=== PATIENT | female | born 1950 | race Caucasian/White ===

== ENCOUNTER 2023-01-16 16:12 | Inpatient (IN) ==
[2023-01-16 16:54] LABS: Basophils # (auto) 0.03 K/uL (0-0.2); Basophils % (auto) 0.3 %; Eosinophils # (auto) 0.07 K/uL (0-0.50); Eosinophils % (auto) 0.7 %; Hematocrit (blood only) 34.1 % (37.0-47.0); Hemoglobin 11.1 g/dl (12.0-16.0); Immature Granulocytes # (auto) 0.04 K/uL (0.01-0.20); Immature Granulocytes % (auto) 0.4 %; Lymphocytes % (auto) 12.9 %; Mean Corpuscular Hemoglobin 28.5 pg (25.0-34.0); Mean Corpuscular Hgb Conc 32.6 g/dL (32.0-36.0); Mean Corpuscular Volume 87.7 fL (80.0-100.0); Mean Platelet Volume 10.6 fL (9.4-12.4); Monocytes # (auto) 0.88 K/uL (0.11-0.59); Monocytes % (auto) 8.7 %; Neutrophils # (auto) 7.75 K/uL (1.40-6.50); Platelet Count 247 K/uL (130-400); RDW Standard Deviation 44.4 fL (36.4-46.3); Red Blood Count 3.89 M/uL (4.20-5.40); White Blood Count 10.07 K/ul (4.8-10.8)
[2023-01-16 17:06] LABS: Albumin Globulin Ratio 1.1 (0.9-2); Albumin Level 3.8 gm/dl (3.4-5.0); BUN Creatinine Ratio 15.2 (10-20); Bilirubin,Total 0.5 mg/dl (0.2-1.0); Calcium 10.3 mg/dl (8.6-10.3); Creatinine Clr Calc Pharmacy 50.2 ml/min; Est GFR (African American) 60.6 ml/min; Est GFR (Non-African American) 52.3 ml/min; Globulin 3.6 gm/dl (2.5-4.0); Potassium 3.6 mmol/L (3.5-5.1); Total Protein 7.4 gm/dl (6.0-8.3)
[2023-01-16 17:19] LABS: Partial Thromboplastin Time 28.9 Seconds (21.0-31.0); Prothrombin Time 11.4 Seconds (9.0-12.0)
--- NOTE | 2023-01-16 17:19 | XRay Report ---
XR chest 1V not portable HISTORY: 72 years-old Female Chest pain, nonspecific COMPARISON: None TECHNIQUE: AP view of the chest FINDINGS: Cardiac silhouette is enlarged. Pulmonary vascular congestion with interstitial coarsening. Patchy bi basilar and right lung airspace opacities. 4.3 cm consolidative focus with central lucency of the rig ht suprahilar lung. No pneumothorax. Questioned trace pleural effusions. Bones appear grossly intact. IMPRESSION: 1. Cardiomegaly with pulmonary vascular congestion. 2. Right lung predominant airspace opacities suggestive of pneumonia with possible pulmonary abscess of the right upper lung. One-month follow-up chest radiographs recommended. ACT 112: Negative or not required by law. The above report was generated using voice recognition software. It may contain grammatical, syntax o r spelling errors. Electronically signed by: Pool Ashby M.D. 01/16/2023 5:18 PM
[2023-01-16 17:29] LABS: Influenza A virus by PCR Negative (Neg); Influenza B virus by PCR Negative (Neg); RSV by PCR Negative (Neg); SARS CoV2 RNA(COVID-19) Ceph NEGATIVE (Negative)
[2023-01-16] MEDS ORDERED: cefTRIAXone SODIUM 2,000 MG/70 ML BAG IV STA (18:07)
[2023-01-16] MEDS ORDERED: DOXYCYCLINE HYCLATE 100 MG in DEXTROSE 5% 100 ML IV STA (18:07)
[2023-01-16] MEDS ORDERED: ACETAMINOPHEN 500 MG TAB PO STA (18:41)
[2023-01-16] MEDS ORDERED: ASPIRIN CHEW 324 MG PO STA (18:41)
--- NOTE | 2023-01-16 19:43 | History & Physical Report ---
Date of Service January 16, 2023 Assessment & Plan (1) Pneumonia involving right lung: Plan: Unasyn + azithromycin CT chest to exclude lung abscess as discussed with pulmonology Incentive spirometer and flutter valve (2) Elevated troponin: Plan: Suspect demand-ischemia No need to repeat as x2 stable (3) Hypoxia: Plan: Aim O2 sats > 90% Does not appear to be in respiratory distress (4) T2DM (type 2 diabetes mellitus): Plan: HbA1C with AM labs Stop metformin and Trulicity Novolog: --Goal BSG Range: Low 110 mg/dL, High 140 mg/dL --Correction Factor: 45 mg/dL/unit No carb ratio --BSGs ACHS if eating, q6h if npo Add carb coverage and basal dosing if requiring frequent correction insulin (5) Hypertension: Plan: Hold olmesartan/HCTZ pending stable BP in setting of infection (6) Urge incontinence: Plan: Continue mirabegron and solifenacin (7) Hypothyroid: Plan: TSH with AM labs Continue levothyroxine Plan VTE Prophylaxis - Lovenox 40mg SQ QPM Diet - regular Disposition - admit to med/surg Admission and Anticipated Discharge Date Admission Date: December, History of Present Illness Chief Complaint: Shortness of breath Primary Care Provider: Ghassan Kahn DO Ketty Hernández is a 72 year old female who presents to the ER with shortness of breath. She reports symptoms started Koby night (3 days ago). Symptoms with shortness of breath, sore throat, generalized aches, frontal headache, dry cough. She denies any fever, chills, nasal congestion, sinus pain, post nasal drip or chest pain. Her shortness of breath has progressively got worse over the last 3 days and she was having to rest for 10 minutes today after short walks therefore decided to come to the ER. Allergies Allergy/AdvReac Type Severity Reaction Status Date / Time Beta-Blockers AdvReac Severe wipes me Verified 01/16/23 19:55 (Beta-Adrenergic Bloc out Home Medications Medication Instructions Recorded Confirmed Type allopurinol 100 mg tablet 100 mg PO QAM 01/16/23 01/16/23 History cyclobenzaprine 5 mg tablet 5 mg PO UD PRN Muscle Spasm 01/16/23 01/16/23 History dulaglutide 1.5 mg/0.5 mL 1.5 mg subcut WK 01/16/23 01/16/23 History subcutaneous pen injector (Trulicity) estradiol 1 mg tablet 1 mg PO QAM 01/16/23 01/16/23 History fluoride (sodium) 1.1 % dental 1 applic dental QAM 01/16/23 01/16/23 History cream (Sodium Fluoride 5000 Plus) hydroxyzine HCl 25 mg tablet 25 mg PO Q8 PRN Anxiety 01/16/23 01/16/23 History latanoprost 0.005 % eye drops 1 drp OPB QPM 01/16/23 01/16/23 History levothyroxine 100 mcg tablet 100 mcg PO DAILYBB 01/16/23 01/16/23 History metformin 500 mg tablet,extended 500 mg PO BIDM 01/16/23 01/16/23 History release 24 hr mirabegron 50 mg tablet,extended 50 mg PO QAM 01/16/23 01/16/23 History release 24 hr (Myrbetriq) olmesartan 40 1 tab PO QAM 01/16/23 01/16/23 History mg-hydrochlorothiazide 25 mg tablet pantoprazole 40 mg tablet,delayed 40 mg PO DAILYBB 01/16/23 01/16/23 History release pramipexole 0.25 mg tablet 0.25 mg PO HS 01/16/23 01/16/23 History pravastatin 40 mg tablet 40 mg PO HS 01/16/23 01/16/23 History sertraline 50 mg tablet 50 mg PO QAM 01/16/23 01/16/23 History solifenacin 5 mg tablet 5 mg PO QAM 01/16/23 01/16/23 History venlafaxine 75 mg capsule,extended 75 mg PO QAM 01/16/23 01/16/23 History release 24 hr Past Med/Surg History Medical History (Updated 01/17/23 @ 06:43 by Misha Bueno MD) Cellulitis Cellulitis Cystitis Depression Hypertension Hypothyroid T2DM (type 2 diabetes mellitus) Urge incontinence Social History Smoking Status: Never smoker Second Hand Exposure: No; Do You Dip or Chew Tobacco: No; Tobacco Cessation Education Requested by Patient: No Hx Alcohol Use: Yes Alcohol type: wine Hx Substance Use: No Preferred Language: German Communication Ability: Effective 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: No Beliefs That Will Affect Care: None Current Living Situation: Spouse Other Information That Helps Us Care for You: No Feels Safe at Home: Yes Safety Concerns: Feels Safe At This Time Assistive Devices: Denture - Upper, Glasses and Hearing Aid - Bilateral Review of Systems Review of Systems: All systems reviewed & are unremarkable except as noted in HPI & below Physical Exam Constitutional: WD/WN, vitals as above Eyes: PERRL, conjunctivae normal, anicteric sclerae ENMT: external ear and nose normal, oropharynx normal Neck: trachea midline, no thyromegaly Respiratory: normal respiratory effort; no respiratory distress Auscultation: + crackles (coarse right < left, anterior > posterior); breath sounds present, no diminished lung sounds, no rales, no rhonchi and no wheezes Cardiovascular: RRR, no murmur, no edema Gastrointestinal (Abdomen): normal bowel sounds, soft, nontender, no hepatosplenomegaly Musculoskeletal: no cyanosis or clubbing, extremities motor strength 5/5 Skin: no rashes, warm and dry Neurologic: moves all extremities and awake; not confused Psychiatric: A+Ox3, euthymic affect Results & Data Results & Data Vital Signs (Past 12 Hours) Vital Signs Temp Pulse Pulse Resp BP BP Pulse Ox 01/16/23 19:30 74 32 H 94 01/16/23 19:30 151/86 H 01/16/23 19:01 151/74 H 01/16/23 19:01 78 17 90 01/16/23 19:00 75 24 90 01/16/23 18:44 168/74 H 01/16/23 18:44 83 17 01/16/23 18:31 206/130 H 01/16/23 18:31 75 29 H 93 01/16/23 18:30 72 27 H 93 01/16/23 18:07 168/86 H 01/16/23 18:07 74 28 H 93 01/16/23 18:00 79 35 H 88 L 01/16/23 17:30 77 23 90 01/16/23 17:23 90 22 89 L 01/16/23 17:23 199/106 H 01/16/23 18:00 91 01/16/23 18:00 81 18 186/68 H 91 01/16/23 17:27 89 01/16/23 16:12 36.4 C L 73 20 193/90 H 95 O2 Del Method O2 Flow Rate 01/16/23 19:30 Nasal Cannula 2 01/16/23 19:30 01/16/23 19:01 01/16/23 19:01 Room Air 01/16/23 19:00 01/16/23 18:44 01/16/23 18:44 01/16/23 18:31 01/16/23 18:31 01/16/23 18:30 01/16/23 18:07 01/16/23 18:07 01/16/23 18:00 01/16/23 17:30 01/16/23 17:23 01/16/23 17:23 01/16/23 18:00 Room Air 01/16/23 18:00 Room Air 01/16/23 17:27 01/16/23 16:12 Room Air Laboratory Results Abnormal lab results 01/16/23 01/16/23 01/16/23 Range/Units 16:33 16:33 20:02 RBC 3.89 L (4.20-5.40) M/uL Hgb 11.1 L (12.0-16.0) g/dl Hct 34.1 L (37.0-47.0) % Neut # (Auto) 7.75 H (1.40-6.50) K/uL [place] # (Auto) 0.88 H (0.11-0.59) K/uL Glucose 105 H (70-99(Fasting)) mg/dl Troponin I High Sens 30.0 H 31.1 H (0-14) pg/ml B-Natriuretic Peptide (0-100) pg/ml 01/16/23 Range/Units 20:02 RBC (4.20-5.40) M/uL Hgb (12.0-16.0) g/dl Hct (37.0-47.0) % Neut # (Auto) (1.40-6.50) K/uL [place] # (Auto) (0.11-0.59) K/uL Glucose (70-99(Fasting)) mg/dl Troponin I High Sens (0-14) pg/ml B-Natriuretic Peptide 332 H (0-100) pg/ml Diagnostic Findings XR chest 1V not portable HISTORY: 72 years-old Female Chest pain, nonspecific COMPARISON: None TECHNIQUE: AP view of the chest FINDINGS: Cardiac silhouette is enlarged. Pulmonary vascular congestion with interstitial coarsening. Patchy bibasilar and right lung airspace opacities. 4.3 cm consolidative focus with central lucency of the right suprahilar lung. No pneumothorax. Questioned trace pleural effusions. Bones appear grossly intact. IMPRESSION: 1. Cardiomegaly with pulmonary vascular congestion. 2. Right lung predominant airspace opacities suggestive of pneumonia with possible pulmonary abscess of the right upper lung. One-month follow-up chest radiographs recommended. Medications Administered ER Medications Given: Ceftriaxone 2g IV Doxycycline 100mg IV Acetaminophen 324mg PO ECG Rate (beats per minute): 76 Rhythm: normal sinus Findings: + other (left ventricular hypertrophy), + RBBB (incomplete) and + left axis deviation Comparison ECG Date: from (November 24, 2013) Change: the following changes noted (incomplete RBBB is new) Code Status & VTE Plan Code Status Full VTE Prophylaxis Plan VTE Prophylaxis will be ordered: Yes PG Care Time/CCT Total # of Minutes Spent Total Time Spent with Patient: Total time spent is greater than 50% in coordination of care (as documented) at patient's floor/unit and/or counseling patient: Coding Level of Care Code 68598 INT INP/OBS CARE 2/55MIN Diagnoses Pneumonia involving right lung J18.9 Elevated troponin R77.8 Hypoxia R09.02 T2DM (type 2 diabetes mellitus) E11.9 Hypertension I10 Urge incontinence N39.41 Hypothyroid E03.9
[2023-01-16 20:37] LABS: Adenovirus PCR Not Detected (NotDetected); Bordetella parapertussis PCR Not Detected (NotDetected); Bordetella pertussis PCR Not Detected (NotDetected); Chlamydia pneumoniae PCR Not Detected (NotDetected); Coronavirus 229E PCR Not Detected (NotDetected); Coronavirus CoV-2 (COVID19)PCR Not Detected (NotDetected); Coronavirus HKU1 PCR Not Detected (NotDetected); Coronavirus NL63 PCR Not Detected (NotDetected); Coronavirus OC43PCR Not Detected (NotDetected); Human Metapneumovirus PCR Not Detected (NotDetected); Influenza A PCR Not Detected (NotDetected); Influenza B PCR Not Detected (NotDetected); Mycoplasma pneumoniae PCR Not Detected (NotDetected); Parainfluenza Virus 1 PCR Not Detected (NotDetected); Parainfluenza Virus 2 PCR Not Detected (NotDetected); Parainfluenza Virus 3 PCR Not Detected (NotDetected); Parainfluenza Virus 4 PCR Not Detected (NotDetected); Respiratory Syncytial VirusPCR Not Detected (NotDetected); Rhinovirus/Enterovirus PCR Not Detected (NotDetected)
[2023-01-16] MEDS ORDERED: OPTIRAY 320 100ml IV ONE (21:02)
--- NOTE | 2023-01-16 21:42 | CT Scan Report ---
Exam(s): CT CHEST With Contrast IV Amt: 81 ML OPTIRAY 320 EXAM: CT Chest With Intravenous Contrast CLINICAL HISTORY: Reason for exam: ?lung abscess. TECHNIQUE: Axial computed tomography images of the chest with intravenous contrast. CTDI is 28.1 mGy and DLP is 1650.84 mGy-cm. Automated exposure control was utilized for the study. A dose lowering technique was utilized adhering to the principles of ALARA. CONTRAST: Patient received 81 ML OPTIRAY 320 of IV contrast COMPARISON: No relevant prior studies available. FINDINGS: Lungs: Extensive patchy ground-glass airspace consolidations, preferentially involving the RIGHT lung. Mild subpleural sparing. Correlate for infectious or inflammatory etiology. Vaping-associated lung disease (or other hypersensitivity pneumonitis) cannot be excluded. Pleural space: Unremarkable. No pneumothorax. No significant effusion. Heart: Unremarkable. No cardiomegaly. No significant pericardial effusion. No significant coronary artery calcifications. Mediastinum: Small hiatal hernia. Bones/joints: Unremarkable. No acute fracture. No dislocation. Soft tissues: Unremarkable. Vasculature: Unremarkable. No thoracic aortic aneurysm. Lymph nodes: Unremarkable. No enlarged lymph nodes. IMPRESSION: Extensive patchy ground-glass airspace consolidations, preferentially involving the RIGHT lung. Mild subpleural sparing. Correlate for infectious or inflammatory etiology. Vaping-associated lung disease (or other hypersensitivity pneumonitis) cannot be excluded. Electronically signed by: Matthew Byrne MD 01/16/23 21:41 PM
--- NOTE | 2023-01-16 21:43 | Emergency Department Note ---
Impression & Plan Pneumonia involving right lung, SOB (shortness of breath), Elevated troponin ED Provider Note INFORMANT: Patient ED PROVIDER(S): Ho Hicks MD CHIEF COMPLAINT: Shortness of breath PLAN: Disposition: Admitted Condition: Good Outpatient prescription management: none Referral: None MEDICAL DECISION MAKING: Patient presented because of shortness of breath. Work-up initiated. Chest x- ray was concerning for right-sided pneumonia. COVID testing was performed and was negative. Bio fire testing was added to further elucidate a possible etiology. Patient CBC showed a mild anemia. Patient's troponin was mildly elevated. ECG did not reveal any acute ischemia. Patient was treated with IV Rocephin and doxycycline for community-acquired pneumonia. Patient had blood cultures done before antibiotics. Consultation was made with Dr. Misah Bueno of the [facility] service. Patient was evaluated in the ER for further management. After review of the information above and other included data, I feel the patient requires admission. Triage Nursing notes reviewed and agree them. Vital Signs: reviewed and remarkable for no significant abnormalities Prior /Outside records reviewed: none Differential diagnosis: Reactive airway disease, pneumonia, pneumothorax, COPD, CHF, infections, cardiac ischemia, pulmonary embolism, musculoskeletal, gastrointestinal, as well as other pathologies. Diagnostics, as interpreted by me: ECG: Twelve-lead ECG reveals normal sinus rhythm at 76 bpm. Left axis deviation. Incomplete right bundle branch block. Left ventricular hypertrophy. No PVCs. Cardiac Monitoring: Cardiac monitoring ordered by me: The patient was placed on continuous cardiac monitoring and observed. It revealed a normal sinus rhythm at 68 beats per minute without ectopy or evidence of dysrhythmia. Medical decision rules: none Imaging studies: Chest x-ray reveals right-sided infiltrate. HPI: The patient is a 72year old female who presents to the Emergency Room with complaints of shortness of breath. This started 4 days ago and is worsening. The patient also notes the following associated symptoms, intermittent chest pain, chills, feeling feverish, cough, headache. The patient has found no relieving factors. Current pain is rated as 8/10. Pt denies LOC, visual changes, neck pain, nausea, vomiting, abdominal pain, back pain, melena, hematoc hezia, urinary symptoms, numbness, weakness, lymphadenopathy, rash, or other complaints. PAST MEDICAL HISTORY: See Below, hypertension, diabetes PAST SURGICAL HISTORY: See Below, SOCIAL HISTORY: See Below, non-smoker HOME MEDICATIONS: See Below ALLERGIES: See Below VITALS: See Below PHYSICAL EXAMINATION: GENERAL: Awake, alert, nontoxic-appearing, in no distress HENT: Normocephalic, atraumatic. Oropharynx unremarkable. EYES: Normal conjunctiva. Sclera non-icteric. NECK: Inspection normal. Non-tender. Supple. No nuchal rigidity. FROM. No masses. RESPIRATORY: Diminished on the right otherwise clear to auscultation. No wheezes. No rales. Normal respiratory effort. CARDIAC: Normal rate. Normal rhythm. No murmurs. No rubs. Extremities warm and well perfused. Pulses equal. No JVD. GI: Soft, non-distended. No tenderness to palpation. No rebound or guarding. No masses. RECTAL: Deferred. MUSCULOSKELETAL: Atraumatic. Chest examination reveals no tenderness. The back is symmetrical on inspection without obvious abnormality. There is no CVA tenderness to palpation. No joint edema. LOWER EXTREMITIES: Calves are equal size bilaterally and non-tender. No edema. No discoloration. NEURO: Normal sensorium. No sensory or motor deficits noted. SKIN: No rash or jaundice noted. Past Med/Surg History Social History Smoking Status: Never smoker Feels Safe at Home: Yes Allergies Allergies Allergy/AdvReac Type Severity Reaction Status Date / Time Beta-Blockers AdvReac Severe wipes me Verified 01/16/23 19:55 (Beta-Adrenergic Bloc out Home Meds Home Medications Medication Instructions Recorded Confirmed allopurinol 100 mg tablet 100 mg PO QAM 01/16/23 01/16/23 cyclobenzaprine 5 mg tablet 5 mg PO UD PRN Muscle Spasm 01/16/23 01/16/23 dulaglutide 1.5 mg/0.5 mL 1.5 mg subcut WK 01/16/23 01/16/23 subcutaneous pen injector (Trulicity) estradiol 1 mg tablet 1 mg PO QAM 01/16/23 01/16/23 fluoride (sodium) 1.1 % dental 1 applic dental QAM 01/16/23 01/16/23 cream (Sodium Fluoride 5000 Plus) hydroxyzine HCl 25 mg tablet 25 mg PO Q8 PRN Anxiety 01/16/23 01/16/23 latanoprost 0.005 % eye drops 1 drp OPB QPM 01/16/23 01/16/23 levothyroxine 100 mcg tablet 100 mcg PO DAILYBB 01/16/23 01/16/23 metformin 500 mg tablet,extended 500 mg PO BIDM 01/16/23 01/16/23 release 24 hr mirabegron 50 mg tablet,extended 50 mg PO QAM 01/16/23 01/16/23 release 24 hr (Myrbetriq) olmesartan 40 1 tab PO QAM 01/16/23 01/16/23 mg-hydrochlorothiazide 25 mg tablet pantoprazole 40 mg tablet,delayed 40 mg PO DAILYBB 01/16/23 01/16/23 release pramipexole 0.25 mg tablet 0.25 mg PO HS 01/16/23 01/16/23 pravastatin 40 mg tablet 40 mg PO 01/16/23 01/16/23 sertraline 50 mg tablet 50 mg PO QA 01/16/23 01/16/23 solifenacin 5 mg tablet 5 mg PO QA 01/16/23 01/16/23 venlafaxine 100 mg tablet 100 mg PO QA 01/16/23 01/16/23 venlafaxine 75 mg capsule,extended 75 mg PO QAM 01/16/23 01/16/23 release 24 hr Results & Data (ED) Vital Signs Vital Signs - 24 hr 01/16/23 16:12 01/16/23 17:27 01/16/23 18:00 Temperature 36.4 C L Temperature Source Temporal Artery Scan Pulse Rate 73 89 Pulse Rate [Apical] 81 Pulse Rate from SpO2 Sensor Respiratory Rate 20 18 Respiratory Effort / Characteristics Non-Labored Spontaneous Non-Labored Spontaneous Respiratory Depth Normal Normal Respiratory Pattern Regular Blood Pressure 193/90 H Blood Pressure [Left Arm] 186/68 H Blood Pressure Mean 124 Blood Pressure Mean [Left Arm] 107 Blood Pressure Position [Left Arm] Sitting Pulse Oximetry 95 91 Oxygen Delivery Method Room Air Room Air Oxygen Flow Rate Sepsis Recent Fever Within 48 Hours No Sepsis New/Unexplained Change in Mental Status No Sepsis Action Taken by Nursing No Action Required 01/16/23 18:00 01/16/23 17:23 01/16/23 17:23 Temperature Temperature Source Pulse Rate 90 Pulse Rate [Apical] Pulse Rate from SpO2 Sensor 90 Respiratory Rate 22 Respiratory Effort / Characteristics Respiratory Depth Respiratory Pattern Blood Pressure 199/106 H Blood Pressure [Left Arm] Blood Pressure Mean 127 Blood Pressure Mean [Left Arm] Blood Pressure Position [Left Arm] Pulse Oximetry 91 89 L Oxygen Delivery Method Room Air Oxygen Flow Rate Sepsis Recent Fever Within 48 Hours Sepsis New/Unexplained Change in Mental Status Sepsis Action Taken by Nursing 01/16/23 17:30 01/16/23 18:00 01/16/23 18:07 Temperature Temperature Source Pulse Rate 77 79 74 Pulse Rate [Apical] Pulse Rate from SpO2 Sensor 77 77 75 Respiratory Rate 23 35 H 28 H Respiratory Effort / Characteristics Respiratory Depth Respiratory Pattern Blood Pressure Blood Pressure [Left Arm] Blood Pressure Mean Blood Pressure Mean [Left Arm] Blood Pressure Position [Left Arm] Pulse Oximetry 90 88 L 93 Oxygen Delivery Method Oxygen Flow Rate Sepsis Recent Fever Within 48 Hours Sepsis New/Unexplained Change in Mental Status Sepsis Action Taken by Nursing 01/16/23 18:07 01/16/23 18:30 01/16/23 18:31 Temperature Temperature Source Pulse Rate 72 75 Pulse Rate [Apical] Pulse Rate from SpO2 Sensor 72 76 Respiratory Rate 27 H 29 H Respiratory Effort / Characteristics Respiratory Depth Respiratory Pattern Blood Pressure 168/86 H Blood Pressure [Left Arm] Blood Pressure Mean 101 Blood Pressure Mean [Left Arm] Blood Pressure Position [Left Arm] Pulse Oximetry 93 93 Oxygen Delivery Method Oxygen Flow Rate Sepsis Recent Fever Within 48 Hours Sepsis New/Unexplained Change in Mental Status Sepsis Action Taken by Nursing 01/16/23 18:31 01/16/23 18:44 01/16/23 18:44 Temperature Temperature Source Pulse Rate 83 Pulse Rate [Apical] Pulse Rate from SpO2 Sensor Respiratory Rate 17 Respiratory Effort / Characteristics Respiratory Depth Respiratory Pattern Blood Pressure 206/130 H 168/74 H Blood Pressure [Left Arm] Blood Pressure Mean 145 107 Blood Pressure Mean [Left Arm] Blood Pressure Position [Left Arm] Pulse Oximetry Oxygen Delivery Method Oxygen Flow Rate Sepsis Recent Fever Within 48 Hours Sepsis New/Unexplained Change in Mental Status Sepsis Action Taken by Nursing 01/16/23 19:00 01/16/23 19:01 01/16/23 19:01 Temperature Temperature Source Pulse Rate 75 78 Pulse Rate [Apical] Pulse Rate from SpO2 Sensor 76 78 Respiratory Rate 24 17 Respiratory Effort / Characteristics Respiratory Depth Respiratory Pattern Blood Pressure 151/74 H Blood Pressure [Left Arm] Blood Pressure Mean 116 Blood Pressure Mean [Left Arm] Blood Pressure Position [Left Arm] Pulse Oximetry 90 90 Oxygen Delivery Method Room Air Oxygen Flow Rate Sepsis Recent Fever Within 48 Hours Sepsis New/Unexplained Change in Mental Status Sepsis Action Taken by Nursing 01/16/23 19:30 01/16/23 19:30 01/16/23 20:00 Temperature Temperature Source Pulse Rate 74 65 Pulse Rate [Apical] Pulse Rate from SpO2 Sensor 76 71 Respiratory Rate 32 H 26 H Respiratory Effort / Characteristics Respiratory Depth Respiratory Pattern Blood Pressure 151/86 H Blood Pressure [Left Arm] Blood Pressure Mean 115 Blood Pressure Mean [Left Arm] Blood Pressure Position [Left Arm] Pulse Oximetry 94 94 Oxygen Delivery Method Nasal Cannula Oxygen Flow Rate 2 Sepsis Recent Fever Within 48 Hours Sepsis New/Unexplained Change in Mental Status Sepsis Action Taken by Nursing 01/16/23 20:30 01/16/23 20:31 01/16/23 20:31 Temperature Temperature Source Pulse Rate 69 68 Pulse Rate [Apical] Pulse Rate from SpO2 Sensor 68 67 Respiratory Rate 31 H 20 Respiratory Effort / Characteristics Respiratory Depth Respiratory Pattern Blood Pressure 109/82 Blood Pressure [Left Arm] Blood Pressure Mean 99 Blood Pressure Mean [Left Arm] Blood Pressure Position [Left Arm] Pulse Oximetry 92 93 Oxygen Delivery Method Nasal Cannula Oxygen Flow Rate 2 Sepsis Recent Fever Within 48 Hours Sepsis New/Unexplained Change in Mental Status Sepsis Action Taken by Nursing Laboratory Data 01/16/23 16:33 01/16/23 16:33 Lab Results 01/16/23 01/16/23 01/16/23 Range/Units 16:33 16:33 16:33 WBC 10.07 (4.8-10.8) K/ul RBC 3.89 L (4.20-5.40) M/uL Hgb 11.1 L (12.0-16.0) g/dl Hct 34.1 L (37.0-47.0) % MCV 87.7 (80.0-100.0) fL MCH 28.5 (25.0-34.0) pg MCHC 32.6 (32.0-36.0) g/dL RDW Std Deviation 44.4 (36.4-46.3) fL RDW Coeff of Jason 14.0 (11.5-14.5) % Plt Count 247 (130-400) K/uL MPV 10.6 (9.4-12.4) fL Immature Gran % (Auto) 0.4 % Neut % (Auto) 77.0 % Lymph % (Auto) 12.9 % [place] % (Auto) 8.7 % Eos % (Auto) 0.7 % Baso % (Auto) 0.3 % Neut # (Auto) 7.75 H (1.40-6.50) K/uL Lymph # (Auto) 1.30 (1.2-3.4) K/uL [place] # (Auto) 0.88 H (0.11-0.59) K/uL Eos # (Auto) 0.07 (0-0.50) K/uL Baso # (Auto) 0.03 (0-0.2) K/uL Immature Gran # (Auto) 0.04 (0.01-0.20) K/uL PT 11.4 (9.0-12.0) Seconds INR 1.0 (0.9-1.1) APTT 28.9 (21.0-31.0) Seconds PTT Ratio 1.0 Sodium 138 (136-145) mmol/L Potassium 3.6 (3.5-5.1) mmol/L Chloride 105 (98-107) mmol/L Carbon Dioxide 26 (21-32) mmol/L Anion Gap 7 (3-11) BUN 16 (6-23) mg/dl Creatinine 1.05 (0.6-1.2) mg/dl Est Cr Clr Drug Dosing 50.2 ml/min Est GFR ( Amer) 60.6 ml/min Est GFR (Non-Af Amer) 52.3 ml/min BUN/Creatinine Ratio 15.2 (10-20) Glucose 105 H (70-99(Fasting)) mg/dl Calcium 10.3 (8.6-10.3) mg/dl Total Bilirubin 0.5 (0.2-1.0) mg/dl AST 24 (13-39) U/L ALT 34 (7-52) U/L Alkaline Phosphatase 91 (34-104) U/L Troponin I High Sens 30.0 H (0-14) pg/ml B-Natriuretic Peptide (0-100) pg/ml Total Protein 7.4 (6.0-8.3) gm/dl Albumin 3.8 (3.4-5.0) gm/dl Globulin 3.6 (2.5-4.0) gm/dl Albumin/Globulin Ratio 1.1 (0.9-2) Procalcitonin (0-0.5) ng/ml Adenovirus (PCR) (NotDetected) B. pertussis DNA (PCR) (NotDetected) B.parapertussis DNA PCR (NotDetected) C. pneumoniae DNA (PCR) (NotDetected) Coronavirus OC43 (PCR) (NotDetected) Coronavirus HKU1 (PCR) (NotDetected) Coronavirus 229E (PCR) (NotDetected) SARS-CoV-2 (PCR) (Negative) Coronavirus NL63 (PCR) (NotDetected) Human Metapneumovir PCR (NotDetected) Influenza Type A (PCR) (Neg) Influenza Type B (PCR) (Neg) M. pneumoniae (PCR) (NotDetected) Parainfluenza 1 (PCR) (NotDetected) Parainfluenza 2 (PCR) (NotDetected) Parainfluenza 3 (PCR) (NotDetected) Parainfluenza 4 (PCR) (NotDetected) RSV (RT-PCR) (Neg) RSV (PCR) (NotDetected) Entero/Rhino (PCR) (NotDetected) 01/16/23 01/16/23 01/16/23 Range/Units 16:34 16:34 19:22 WBC (4.8-10.8) K/ul RBC (4.20-5.40) M/uL Hgb (12.0-16.0) g/dl Hct (37.0-47.0) % MCV (80.0-100.0) fL MCH (25.0-34.0) pg MCHC (32.0-36.0) g/dL RDW Std Deviation (36.4-46.3) fL RDW Coeff of Jason (11.5-14.5) % Plt Count (130-400) K/uL MPV (9.4-12.4) fL Immature Gran % (Auto) % Neut % (Auto) % Lymph % (Auto) % [place] % (Auto) % Eos % (Auto) % Baso % (Auto) % Neut # (Auto) (1.40-6.50) K/uL Lymph # (Auto) (1.2-3.4) K/uL [place] # (Auto) (0.11-0.59) K/uL Eos # (Auto) (0-0.50) K/uL Baso # (Auto) (0-0.2) K/uL Immature Gran # (Auto) (0.01-0.20) K/uL PT (9.0-12.0) Seconds INR (0.9-1.1) APTT (21.0-31.0) Seconds PTT Ratio Sodium (136-145) mmol/L Potassium (3.5-5.1) mmol/L Chloride (98-107) mmol/L Carbon Dioxide (21-32) mmol/L Anion Gap (3-11) BUN (6-23) mg/dl Creatinine (0.6-1.2) mg/dl Est Cr Clr Drug Dosing ml/min Est GFR ( Amer) ml/min Est GFR (Non-Af Amer) ml/min BUN/Creatinine Ratio (10-20) Glucose (70-99(Fasting)) mg/dl Calcium (8.6-10.3) mg/dl Total Bilirubin (0.2-1.0) mg/dl AST (13-39) U/L ALT (7-52) U/L Alkaline Phosphatase (34-104) U/L Troponin I High Sens (0-14) pg/ml B-Natriuretic Peptide (0-100) pg/ml Total Protein (6.0-8.3) gm/dl Albumin (3.4-5.0) gm/dl Globulin (2.5-4.0) gm/dl Albumin/Globulin Ratio (0.9-2) Procalcitonin 0.08 (0-0.5) ng/ml Adenovirus (PCR) Not Detected (NotDetected) B. pertussis DNA (PCR) Not Detected (NotDetected) B.parapertussis DNA PCR Not Detected (NotDetected) C. pneumoniae DNA (PCR) Not Detected (NotDetected) Coronavirus OC43 (PCR) Not Detected (NotDetected) Coronavirus HKU1 (PCR) Not Detected (NotDetected) Coronavirus 229E (PCR) Not Detected (NotDetected) SARS-CoV-2 (PCR) NEGATIVE Not Detected (Negative) Coronavirus NL63 (PCR) Not Detected (NotDetected) Human Metapneumovir PCR Not Detected (NotDetected) Influenza Type A (PCR) Negative Not Detected (Neg) Influenza Type B (PCR) Negative Not Detected (Neg) M. pneumoniae (PCR) Not Detected (NotDetected) Parainfluenza 1 (PCR) Not Detected (NotDetected) Parainfluenza 2 (PCR) Not Detected (NotDetected) Parainfluenza 3 (PCR) Not Detected (NotDetected) Parainfluenza 4 (PCR) Not Detected (NotDetected) RSV (RT-PCR) Negative (Neg) RSV (PCR) Not Detected (NotDetected) Entero/Rhino (PCR) Not Detected (NotDetected) 01/16/23 01/16/23 Range/Units 20:02 20:02 WBC (4.8-10.8) K/ul RBC (4.20-5.40) M/uL Hgb (12.0-16.0) g/dl Hct (37.0-47.0) % MCV (80.0-100.0) fL MCH (25.0-34.0) pg MCHC (32.0-36.0) g/dL RDW Std Deviation (36.4-46.3) fL RDW Coeff of Jason (11.5-14.5) % Plt Count (130-400) K/uL MPV (9.4-12.4) fL Immature Gran % (Auto) % Neut % (Auto) % Lymph % (Auto) % [place] % (Auto) % Eos % (Auto) % Baso % (Auto) % Neut # (Auto) (1.40-6.50) K/uL Lymph # (Auto) (1.2-3.4) K/uL [place] # (Auto) (0.11-0.59) K/uL Eos # (Auto) (0-0.50) K/uL Baso # (Auto) (0-0.2) K/uL Immature Gran # (Auto) (0.01-0.20) K/uL PT (9.0-12.0) Seconds INR (0.9-1.1) APTT (21.0-31.0) Seconds PTT Ratio Sodium (136-145) mmol/L Potassium (3.5-5.1) mmol/L Chloride (98-107) mmol/L Carbon Dioxide (21-32) mmol/L Anion Gap (3-11) BUN (6-23) mg/dl Creatinine (0.6-1.2) mg/dl Est Cr Clr Drug Dosing ml/min Est GFR ( Amer) ml/min Est GFR (Non-Af Amer) ml/min BUN/Creatinine Ratio (10-20) Glucose (70-99(Fasting)) mg/dl Calcium (8.6-10.3) mg/dl Total Bilirubin (0.2-1.0) mg/dl AST (13-39) U/L ALT (7-52) U/L Alkaline Phosphatase (34-104) U/L Troponin I High Sens 31.1 H (0-14) pg/ml B-Natriuretic Peptide 332 H (0-100) pg/ml Total Protein (6.0-8.3) gm/dl Albumin (3.4-5.0) gm/dl Globulin (2.5-4.0) gm/dl Albumin/Globulin Ratio (0.9-2) Procalcitonin (0-0.5) ng/ml Adenovirus (PCR) (NotDetected) B. pertussis DNA (PCR) (NotDetected) B.parapertussis DNA PCR (NotDetected) C. pneumoniae DNA (PCR) (NotDetected) Coronavirus OC43 (PCR) (NotDetected) Coronavirus HKU1 (PCR) (NotDetected) Coronavirus 229E (PCR) (NotDetected) SARS-CoV-2 (PCR) (Negative) Coronavirus NL63 (PCR) (NotDetected) Human Metapneumovir PCR (NotDetected) Influenza Type A (PCR) (Neg) Influenza Type B (PCR) (Neg) M. pneumoniae (PCR) (NotDetected) Parainfluenza 1 (PCR) (NotDetected) Parainfluenza 2 (PCR) (NotDetected) Parainfluenza 3 (PCR) (NotDetected) Parainfluenza 4 (PCR) (NotDetected) RSV (RT-PCR) (Neg) RSV (PCR) (NotDetected) Entero/Rhino (PCR) (NotDetected) Administered Medications Discontinued Medications Acetaminophen (Acetaminophen 500 Mg Tab) 1,000 mg PO NOW STA Stop: 01/16/23 18:42 Last Admin: 01/16/23 19:04 Dose: 1,000 mg Documented By: TAMMY Aspirin (Aspirin Chew 324 Mg) 324 mg PO NOW STA Stop: 01/16/23 18:42 Last Admin: 01/16/23 19:04 Dose: 324 mg Documented By: TAMMY Ceftriaxone Sodium (Rocephin) 2,000 mg in 70 mls @ 140 mls/hr IV NOW STA Stop: 01/16/23 18:36 Last Infusion: 01/16/23 19:32 Dose: 0 mls/hr Documented By: Admin: 01/16/23 18:46 Dose: 140 mls/hr Documented By: MINO Doxycycline Hyclate 100 mg/ (Dextrose) 110 mls @ 50 mls/hr IV NOW STA Stop: 01/16/23 20:18 Last Admin: 01/16/23 19:32 Dose: 50 mls/hr Documented By: ASHTYN Ioversol (Optiray 320 100ml) 81 ml IV ONCE ONE Stop: 01/16/23 21:03 Last Admin: 01/16/23 21:03 Dose: 81 ml Documented By: SHARAN Imaging Data Radiologist's Impression: Chest X-Ray 01/16/23 16:28 XR chest 1V not portable HISTORY: 72 years-old Female Chest pain, nonspecific COMPARISON: None TECHNIQUE: AP view of the chest FINDINGS: Cardiac silhouette is enlarged. Pulmonary vascular congestion with interstitial coarsening. Patchy bibasilar and right lung airspace opacities. 4.3 cm consolidative focus with central lucency of the right suprahilar lung. No pneumothorax. Questioned trace pleural effusions. Bones appear grossly intact. IMPRESSION: 1. Cardiomegaly with pulmonary vascular congestion. 2. Right lung predominant airspace opacities suggestive of pneumonia with possible pulmonary abscess of the right upper lung. One-month follow-up chest radiographs recommended. ACT 112: Negative or not required by law. The above report was generated using voice recognition software. It may contain grammatical, syntax or spelling errors. Electronically signed by: Pool Ashby M.D. 01/16/2023 5:18 PM Discharge Plan Visit Data Chief Complaint: Shortness of Breath/Dyspnea Stated Complaint: SOB,CHILLS,DOESNT FEEL WELL ED Provider: Ho Hicks Discharge Problem: Pneumonia involving right lung, SOB (shortness of breath), Elevated troponin Patient Disposition: Admitted As Inpatient Discharge Instructions Interventions: ED Discharge Assessment Last Done: 01/16/23 21:28 Forms Stand Alone Forms: My [facility] Prescriptions Prescriptions: No Action venlafaxine 75 mg capsule,extended release 24hr 75 mg PO QAM allopurinol 100 mg tablet 100 mg PO QAM metformin 500 mg tablet extended release 24 hr 500 mg PO BIDM sertraline 50 mg tablet 50 mg PO QAM Myrbetriq 50 mg tablet extended release 24 hr 50 mg PO QAM estradiol 1 mg tablet 1 mg PO QAM pantoprazole 40 mg tablet,delayed release (DR/EC) 40 mg PO DAILYBB cyclobenzaprine 5 mg tablet 5 mg PO UD PRN (Reason: Muscle Spasm) olmesartan-hydrochlorothiazide 40-25 mg tablet 1 tab PO QAM Trulicity 1.5 mg/0.5 mL pen injector 1.5 mg SUBCUT WK Rx Instructions: hydroxyzine HCl 25 mg tablet 25 mg PO Q8 PRN (Reason: Anxiety) solifenacin 5 mg tablet 5 mg PO QAM latanoprost 0.005 % drops 1 drp OPB QPM pravastatin 40 mg tablet 40 mg PO HS pramipexole 0.25 mg tablet 0.25 mg PO HS fluoride (sodium) [Sodium Fluoride 5000 Plus] 1.1 % cream 1 applic dental QAM levothyroxine 100 mcg tablet 100 mcg PO DAILYBB venlafaxine 100 mg Tablet 100 mg PO QAM Referrals Referrals: Ghassan Kahn DO [Primary Care Provider] -
[2023-01-16] MEDS ORDERED: CYCLOBENZAPRINE HCL 5 MG TAB PO PRN (21:59)
[2023-01-16] MEDS ORDERED: CARBOHYDRATES FOR HYPOGLYCEMIA PO PRN (22:54)
[2023-01-16] MEDS ORDERED: GLUCOSE 40% GEL 15 GM TUBE PO PRN (22:54)
[2023-01-16] MEDS ORDERED: GLUCAGON FOR INJ 1 MG VIAL SQ PRN (22:54)
[2023-01-16] MEDS ORDERED: GLUCOSE 10 TAB/TUBE PO PRN (22:54)
[2023-01-16] MEDS ORDERED: DEXTROSE 50% 50 ML SYRINGE IV PRN (22:54)
[2023-01-16] MEDS: AZITHROMYCIN 250 MG TAB PO SCH (23:05)
[2023-01-16] MEDS: LATANOPROST 0.005% OP SOLN 2.5 ML BTL OPB SCH (23:06)
[2023-01-16] MEDS: PRAVASTATIN SOD 40 MG TAB PO SCH (23:07)
[2023-01-16] MEDS: PRAMIPEXOLE DIHYDROCHLO 0.25 MG TAB PO SCH (23:07)
[2023-01-16] MEDS: ENOXAPARIN INJ 40 MG/0.4 ML SYR SQ SCH (23:08)
[2023-01-16] MEDS: AMPICILLIN/SULBACTAM SOD 3,000 MG in 0.9 % SODIUM CHLORIDE 100 ML IV SCH (23:14)
[2023-01-17] MEDS: ACETAMINOPHEN 325 MG TAB PO PRN ×3 (02:37→21:12)
[2023-01-17] MEDS: AMPICILLIN/SULBACTAM SOD 3,000 MG in 0.9 % SODIUM CHLORIDE 100 ML IV SCH ×2 (05:48→12:00)
[2023-01-17] MEDS: LEVOTHYROXINE SODIUM 100 MCG TABLET PO SCH (05:49)
[2023-01-17] MEDS: PANTOprazole 40 MG TAB PO SCH (05:49)
--- NOTE | 2023-01-17 07:09 | Pulmonary Consultation ---
Date of Consultation January 17, 2023 Assessment & Plan (1) Acute respiratory failure with hypoxia: (2) Multifocal pneumonia: (3) Obesity: Plan CT chest 01/16/2023 personally reviewed: Groundglass opacities appreciated bilateral upper lobes as well as the right lower lobe Minimal groundglass opacity in the left lower lobe as well Minimal mediastinal lymphadenopathy -- Acute hypoxic respiratory failure Secondary to multilobar pneumonia BNP 332, procalcitonin 0.08 Respiratory bio fire negative for everything including RSV, entero-/renal, mycoplasma and COVID-[address] chest no signs of abscess Differential includes but not limited to infectious process, noninfectious process like NSIP, diffuse alveolar hemorrhage, pulmonary alveolar proteinosis --Probable LISBETH BiPAP nightly and as needed shortness of breath Recommend outpatient polysomnography Plan: Continue with atypical antibiotic coverage for total of 5-7 days Okay to discontinue ampicillin-sulbactam Autoimmune work-up to be ordered for tomorrow Urine Legionella ordered Follow-up 2D echo For bronchoscopy tomorrow, n.p.o. postmidnight Hold Lovenox Risk and benefit of the procedure explained to the patient in depth. She u nderstand is agreeable to the procedure O2 supplementation to keep oxygen saturation between 90-92% Please note the above document was generated using voice recognition software. It may contain grammatical, syntax or spelling errors.Any formal questions or concerns about the content, text or information contained within the body of this dictation should be directly addressed to the provider for clarification. History of Present Illness Attending Physician: Misha Bueno MD History of Present Illness 72-year-old female present to the hospital complaints of shortness of breath Past medical history: Hypothyroidism, anxiety/depression, type 2 diabetes Pulmonary consulted for abnormal chest x-ray At the time of examination patient was saturating 99% on 3 L nasal cannula, I went down to 1 L Patient has not been feeling well for approximately 3-4 days Is started with shortness of breath which woke her up at night. Has been feeling of nasal congestion and coughing clear phlegm. Denies any hemoptysis Did complain of multiple bouts of loose stools. No hematochezia No dysuria, no hematuria. Subjective fever and chills. Unable to measure the temperature. No nausea vomiting No personal or family history of autoimmune disease like lupus, sarcoid, Sjogren's, rheumatoid Denies any difficulty swallowing, no dry eyes, no dry mouth No morning joint stiffness Social history: Lifetime non-smoker, no alcohol. Denies any illicit drug use Has 3 dogs at home. No birds or poultry nearby No personal or family history of asthma No history of lung cancer in the family Allergies Allergy/AdvReac Type Severity Reaction Status Date / Time Beta-Blockers AdvReac Severe wipes me Verified 01/16/23 19:55 (Beta-Adrenergic Bloc out Home Medications Medication Instructions Recorded Confirmed Type allopurinol 100 mg tablet 100 mg PO QAM 01/16/23 01/16/23 History cyclobenzaprine 5 mg tablet 5 mg PO UD PRN Muscle Spasm 01/16/23 01/16/23 History dulaglutide 1.5 mg/0.5 mL 1.5 mg subcut WK 01/16/23 01/16/23 History subcutaneous pen injector (Trulicity) estradiol 1 mg tablet 1 mg PO QA 01/16/23 01/16/23 History fluoride (sodium) 1.1 % dental 1 applic dental [facility] 01/16/23 01/16/23 History cream (Sodium Fluoride 5000 Plus) hydroxyzine HCl 25 mg tablet 25 mg PO Q8 PRN Anxiety 01/16/23 01/16/23 History latanoprost 0.005 % eye drops 1 drp OPB QPM 01/16/23 01/16/23 History levothyroxine 100 mcg tablet 100 mcg PO DAILYBB 01/16/23 01/16/23 History metformin 500 mg tablet,extended 500 mg PO BIDM 01/16/23 01/16/23 History release 24 hr mirabegron 50 mg tablet,extended 50 mg PO QAM 01/16/23 01/16/23 History release 24 hr (Myrbetriq) olmesartan 40 1 tab PO QAM 01/16/23 01/16/23 History mg-hydrochlorothiazide 25 mg tablet pantoprazole 40 mg tablet,delayed 40 mg PO DAILYBB 01/16/23 01/16/23 History release pramipexole 0.25 mg tablet 0.25 mg PO HS 01/16/23 01/16/23 History pravastatin 40 mg tablet 40 mg PO HS 01/16/23 01/16/23 History sertraline 50 mg tablet 50 mg PO QAM 01/16/23 01/16/23 History solifenacin 5 mg tablet 5 mg PO QAM 01/16/23 01/16/23 History venlafaxine 75 mg capsule,extended 75 mg PO QAM 01/16/23 01/16/23 History release 24 hr Patient History Medical History (Updated 01/17/23 @ 12:06 by Oseas Pierson MD, [facility]) Cellulitis Cellulitis Cystitis Depression Hypertension Hypothyroid T2DM (type 2 diabetes mellitus) Urge incontinence Social History Smoking Status: Never smoker Second Hand Exposure: No; Do You Dip or Chew Tobacco: No; Tobacco Cessation Education Requested by Patient: No Hx Alcohol Use: Yes Alcohol type: wine Hx Substance Use: No Preferred Language: Sinhala Communication Ability: Effective Assistant Professor Of Spanish Required: No Beliefs That Will Affect Care: None Current Living Situation: Spouse Other Information That Helps Us Care for You: No Feels Safe at Home: Yes Safety Concerns: Feels Safe At This Time Assistive Devices: Denture - Upper, Glasses and Hearing Aid - Bilateral Review of Systems Review of Systems: All systems reviewed & are unremarkable except as noted in HPI & below Physical Exam Physical Exam: Constitutional: No acute distress HEENT: EOMI, PERRLA Respiratory system: Decreased air entry bilaterally, no wheeze, no rhonchi, positive crackles bilaterally CVS: S1-S2 positive, no murmurs or gallops Abdomen: Soft, nontender, nondistended, positive bowel sounds x4, obese Extremities: +2 pulses bilaterally radialis/ dorsalis pedis, no cyanosis, no edema Neuro: Awake alert oriented x3 Psych: Normal mood and affect G/U: No Oliveros Skin: no rashes, warm and dry Lymphatic: no cervical or axillary lymphadenopathy Results & Data Results & Data Vital Signs (Past 12 Hours) Vital Signs Temp Pulse Pulse Resp BP BP Pulse Ox 01/16/23 21:45 01/16/23 21:45 01/16/23 21:45 36.7 C 64 18 161/73 H 94 01/16/23 20:31 68 20 93 01/16/23 20:31 109/82 01/16/23 20:30 69 31 H 92 01/16/23 20:00 65 26 H 94 01/16/23 19:30 74 32 H 94 01/16/23 19:30 151/86 H O2 Del Method O2 Flow Rate 01/16/23 21:45 Nasal Cannula 2 01/16/23 21:45 Nasal Cannula 2 01/16/23 21:45 Nasal Cannula 2 01/16/23 20:31 Nasal Cannula 2 01/16/23 20:31 01/16/23 20:30 01/16/23 20:00 01/16/23 19:30 Nasal Cannula 2 01/16/23 19:30 Laboratory Results 01/16/23 16:33 01/16/23 16:33 PG Care Time/CCT Total # of Minutes Spent Total Time Spent with Patient: Total time spent is greater than 50% in coordination of care (as documented) at patient's floor/unit and/or counseling patient: [place] [address] INT INP/OBS CARE 3/75MIN Patient Type New Diagnoses Acute respiratory failure with hypoxia J96.01 Multifocal pneumonia J18.9 Obesity E66.9
[2023-01-17 08:09] LABS: Basophils # (auto) 0.03 K/uL (0-0.2); Basophils % (auto) 0.4 %; Eosinophils # (auto) 0.17 K/uL (0-0.50); Eosinophils % (auto) 2.5 %; Hematocrit (blood only) 31.4 % (37.0-47.0); Hemoglobin 10.2 g/dl (12.0-16.0); Immature Granulocytes # (auto) 0.11 K/uL (0.01-0.20); Immature Granulocytes % (auto) 1.6 %; Lymphocytes # (auto) 0.81 K/uL (1.2-3.4); Lymphocytes % (auto) 11.7 %; Mean Corpuscular Hemoglobin 28.3 pg (25.0-34.0); Mean Corpuscular Hgb Conc 32.5 g/dL (32.0-36.0); Mean Corpuscular Volume 87.2 fL (80.0-100.0); Mean Platelet Volume 10.8 fL (9.4-12.4); Monocytes # (auto) 0.58 K/uL (0.11-0.59); Monocytes % (auto) 8.4 %; Neutrophils # (auto) 5.22 K/uL (1.40-6.50); Neutrophils % (auto) 75.4 %; Platelet Count 209 K/uL (130-400); White Blood Count 6.92 K/ul (4.8-10.8)
[2023-01-17 08:32] LABS: BUN Creatinine Ratio 15.4 (10-20); Calcium 9.7 mg/dl (8.6-10.3); Creatinine Clr Calc Pharmacy 52.4 ml/min; Est GFR (African American) 61.3 ml/min; Est GFR (Non-African American) 52.9 ml/min; Potassium 4.1 mmol/L (3.5-5.1)
[2023-01-17] MEDS: INSULIN ASPART PER UNIT CHARGE SC SCH ×4 (08:36→21:12)
--- NOTE | 2023-01-17 08:48 | Electrocardiogram Report ---
Test Reason : Blood Pressure : / mmHG Vent. Rate : 076 BPM Atrial Rate : 076 BPM P-R Int : 148 ms QRS Dur : 112 ms QT Int : 388 ms P-R-T Axes : 054 -39 075 degrees QTc Int : 436 ms Normal sinus rhythm Left axis deviation Incomplete right bundle branch block Left ventricular hypertrophy with repolarization abnormality Abnormal ECG When compared with ECG of 24-NOV-2013 05:53, Incomplete right bundle branch block is now Present Left ventricular hypertrophy with repolarization abnormality now present Confirmed by Laron Childers ([id number]) on 01/17/2023 8:47:47 AM Referred By: REFERRED SELF Confirmed By:Laron Childers
[2023-01-17] MEDS ORDERED: MIRABEGRON ER 25 MG TAB PO SCH (09:00)
[2023-01-17] MEDS ORDERED: VIBEGRON 75 MG TAB PO SCH (09:00)
[2023-01-17] MEDS ORDERED: VENLAFAXINE HCL 50 MG TAB PO SCH (09:00)
[2023-01-17] MEDS: allopurinoL 100 MG TAB PO SCH (09:06)
[2023-01-17] MEDS: SERTRALINE HCL 50 MG TABLET PO SCH (09:06)
[2023-01-17] MEDS: VENLAFAXINE HCL XR 75 MG CAPXR PO SCH (09:06)
[2023-01-17] MEDS: OXYBUTYNIN CHLORIDE XL 5 MG TABCR PO SCH (09:06)
[2023-01-17] MEDS: VIBEGRON 75 MG TAB PO SCH (09:06)
[2023-01-17 09:26] LABS: Estimated Average Glucose 126 mg/dl
--- NOTE | 2023-01-17 13:37 | XCELERA ---
[id number]
[2023-01-17] MEDS ORDERED: ALBUTEROL HFA 8 GM INHALER INH ONE (14:10)
[2023-01-17] MEDS ORDERED: PROMETHAZINE HCL 25 MG TAB PO ONE (14:10)
[2023-01-17] MEDS ORDERED: IBUPROFEN 600 MG TAB PO STA (14:25)
[2023-01-17] MEDS ORDERED: ALBUT/IPRATROP 3MG/0.5MG NEB 3 ML VIAL NEB PRN (15:39)
[2023-01-17] MEDS: FUROSEMIDE 40 MG/4 ML VIAL IV SCH (17:34)
[2023-01-17] MEDS: LATANOPROST 0.005% OP SOLN 2.5 ML BTL OPB SCH (21:08)
[2023-01-17] MEDS: PRAMIPEXOLE DIHYDROCHLO 0.25 MG TAB PO SCH (21:09)
[2023-01-17] MEDS: AZITHROMYCIN 250 MG TAB PO SCH (21:09)
[2023-01-17] MEDS: PRAVASTATIN SOD 40 MG TAB PO SCH (21:09)
[2023-01-17] MEDS: IBUPROFEN 600 MG TAB PO PRN (22:23)
[2023-01-18] MEDS: LEVOTHYROXINE SODIUM 100 MCG TABLET PO SCH (06:20)
[2023-01-18] MEDS: PANTOprazole 40 MG TAB PO SCH (06:20)
--- NOTE | 2023-01-18 07:09 | Pulmonology Progress Note ---
Date of Service January 18, 2023 Assessment & Plan (1) Acute respiratory failure with hypoxia: (2) Multifocal pneumonia: (3) Obesity: (4) Pulmonary hypertension: Plan CT chest 01/16/2023 personally reviewed: Groundglass opacities appreciated bilateral upper lobes as well as the right lower lobe Minimal groundglass opacity in the left lower lobe as well Minimal mediastinal lymphadenopathy 2D echo 01/17/2023: EF 60-65%, grade 2 diastolic dysfunction, RVSP 40-50 mmHg, RV normal in size and function, mild MR -- Acute hypoxic respiratory failure Secondary to multilobar pneumonia BNP 332, procalcitonin 0.08 Respiratory bio fire negative for everything including RSV, entero-/renal, mycoplasma and COVID-[address] chest no signs of abscess Differential includes but not limited to infectious process, noninfectious process like NSIP, diffuse alveolar hemorrhage, pulmonary alveolar proteinosis -- Pulmonary hypertension Type II likely from grade 2 diastolic dysfunction Possible pulmonary hypertension also playing a role --Probable LISBETH BiPAP nightly and as needed shortness of breath Recommend outpatient polysomnography Plan: Continue with atypical antibiotic coverage for total of 5-7 days Autoimmune work-up to be ordered for tomorrow Urine Legionella ordered For bronchoscopy today Risk and benefit of the procedure explained to the patient in depth. She understand is agreeable to the procedure O2 supplementation to keep oxygen saturation between 90-92% Please note the above document was generated using voice recognition software. It may contain grammatical, syntax or spelling errors.Any formal questions or concerns about the content, text or information contained within the body of this dictation should be directly addressed to the provider for clarification. Admission and Anticipated Discharge Date Admission Date: January 16, 2023 Subjective Patient seen and examined at bedside. No acute distress, no adverse events overnight No CP. Shortness of breath is better. No TEJEDA, Afebrile. No nausea vomiting Is n.p.o. for bronchoscopy today Review of Systems Review of Systems: All systems reviewed & are unremarkable except as noted in Subjective Physical Exam Physical Exam: Constitutional: No acute distress HEENT: EOMI, PERRLA Respiratory system: Decreased air entry bilaterally, no wheeze, no rhonchi, positive crackles bilaterally CVS: S1-S2 positive, no murmurs or gallops Abdomen: Soft, nontender, nondistended, positive bowel sounds x4, obese Extremities: +2 pulses bilaterally radialis/ dorsalis pedis, no cyanosis, no edema Neuro: Awake alert oriented x3 Psych: Normal mood and affect G/U: No Oliveros Skin: no rashes, warm and dry Lymphatic: no cervical or axillary lymphadenopathy Results & Data Results & Data Vital Signs (Past 12 Hours) Vital Signs Temp Pulse Resp BP Pulse Ox O2 Del Method O2 Flow Rate 01/17/23 22:02 Nasal Cannula 3 01/17/23 21:07 36.8 C 85 20 144/83 H 93 Nasal Cannula 3 Laboratory Results 01/17/23 07:35 01/17/23 07:35 PG Care Time/CCT Total # of Minutes Spent Total Time Spent with Patient: Total time spent is greater than 50% in coordination of care (as documented) at patient's floor/unit and/or counseling patient: Coding Level of Care Code 89566 SUB INP/OBS CARE 3/50MIN Diagnoses Acute respiratory failure with hypoxia J96.01 Multifocal pneumonia J18.9 Obesity E66.9 Pulmonary hypertension I27.20
[2023-01-18] MEDS ORDERED: fentaNYL citrate PF 100 MCG/2 ML VIAL ONE ×2 (07:24→08:06)
[2023-01-18] MEDS ORDERED: MIDAZOLAM HCL 5 MG/ML 1 ML VIAL ONE (07:24)
--- NOTE | 2023-01-18 08:00 | Pre Anesthesia Assessment ---
Date of Service January 18, 2023 Pre Sedation Assessment Vital Signs Temp Pulse Resp BP Pulse Ox O2 Del Method O2 Flow Rate 01/18/23 07:52 68 20 176/73 H 95 Nasal Cannula 3 01/18/23 07:27 36.6 C 62 18 146/80 H 94 Nasal Cannula 3 01/17/23 22:02 Nasal Cannula 3 01/17/23 21:07 36.8 C 85 20 144/83 H 93 Nasal Cannula 3 01/17/23 16:09 80 26 H 90 Nasal Cannula 3 01/17/23 15:02 36.7 C 85 16 172/77 H 90 Nasal Cannula 3 01/17/23 09:22 Nasal Cannula 2 Pre-Sedation Airway Assessment Smoking Status: Never smoker Hx Sleep Apnea: Yes Short, Thick Neck: No Thyromental Distance: > or= 3.5 Finger Breadths Oral Cavity: + WNL Mallampati Class: III ASA: ASA3 NPO Status Date of Last Intake of Fluids: 01/18/23 Time of Last Intake of Fluids: 06:00 Date of Last Intake of Solid Food: 01/17/23 Time of Last Intake of Solid Foods: 18:30 Procedure Planning Contraindications for Sedation: none Current Medications Reviewed: Yes Notes The planned sedation has been discussed with the patient. Informed Consent was obtained. I have identified the patient, determined the appropriateness of sedation and have assessed the patient immediately prior to the procedure. All medicine(s) and interventions are by my order.
[2023-01-18] MEDS ORDERED: MIDAZOLAM HCL 1 MG/ML 2ML VIAL ONE (08:06)
--- NOTE | 2023-01-18 08:23 | Post Anesthesia Assessment ---
Date of Service January 18, 2023 Post Sedation Assessment Vital Signs Temp Pulse Pulse Resp BP BP Pulse Ox 01/18/23 08:15 82 11 L 170/93 H 93 01/18/23 08:16 80 2 L 162/114 H 94 01/18/23 08:10 81 23 145/102 H 92 01/18/23 07:52 68 20 176/73 H 95 01/18/23 07:27 36.6 C 62 18 146/80 H 94 01/17/23 22:02 01/17/23 21:07 36.8 C 85 20 144/83 H 93 01/17/23 16:09 80 26 H 90 01/17/23 15:02 36.7 C 85 16 172/77 H 90 01/17/23 09:22 O2 Del Method O2 Flow Rate 01/18/23 08:15 Oxymask 15 01/18/23 08:16 Oxymask 15 01/18/23 08:10 5 01/18/23 07:52 Nasal Cannula 3 01/18/23 07:27 Nasal Cannula 3 01/17/23 22:02 Nasal Cannula 3 01/17/23 21:07 Nasal Cannula 3 01/17/23 16:09 Nasal Cannula 3 01/17/23 15:02 Nasal Cannula 3 01/17/23 09:22 Nasal Cannula 2 Discharge Sedation Level of Care: Fast Track Phase II Post Sedation Plan On clinical assessment, the patient appears to have tolerated the sedation without complications. Patient is recovering as anticipated. Patient will continue to be monitored by nursing and may be discharged when sedation discharge criteria are met per below protocol. Upon Completions of procedure up to 15 minutes continue every 5 minute vital signs and the P.A.R. score; then discharge to a Phase I or Fast Track to Phase II per the following guidelines: * Discharge Patient to appropriate Phase II area if PAR is 8 or greater or return to pre- procedure baseline. The post - procedure orders will be as directed. * If PAR score is less than 8 or not return to pre-procedure baseline then patient will follow Phase I monitoring till PAR is reached for Phase II. The Phase I may be done in procedure room or may call to secure a Phase I area. * If naloxone or flumazenil are used for reversal, hold in Phase I for continued monitoring from when last reversal dose was given for a minimum of 60 minutes or longer pending the nurse and/or physician discretion of patient condition before discharge to Phase II. Please call the Sedation Physician to re-evaluate and complete post-note for discharge to Phase II area. Do NOT discharge from procedure sedation or Phase 1 until post- sedation evaluation note is complete by procedure /sedation MD Sedation Discharge Instructions to be given to the patient at discharge to home.
--- NOTE | 2023-01-18 08:24 | Procedure Note ---
Procedure Note: Bronchoscopy Procedure PREOPERATIVE DIAGNOSIS: Abnormal chest CT with multilobar pneumonia POSTOPERATIVE DIAGNOSIS: Abnormal chest CT with multilobar pneumonia PROCEDURE PERFORMED: Flexible fiberoptic bronchoscopy with bronchoalveolar lavage and brushings COMPLICATIONS: None. INDICATION: Rule out infection, diffuse alveolar hemorrhage PROCEDURE: After obtaining an informed consent, the patient was brought to the Bronchoscopy Suite. The patient had appropriate oxygen, blood pressure, heart rate, and respiratory rate monitoring applied and monitored continuously throughout the procedure. Supplemental oxygen via nasal cannula as per nursing records was applied to the nasopharynx with adequate saturations achieved. Topical anesthesia with nebulized 1% lidocaine was achieved. Subsequent to this, the patient was premedicated with 3 mg of midazolam and 75 mcg of fentanyl. Sedation initiated 8:07 AM, procedure started 8:09 AM, procedure ended at 8:20 AM Bronchoscope was advanced through the left nostril. Upper Airway: The oropharynx and larynx were well visualized and showed mild edema and erythema was appreciated. There was normal vocal cord motion without masses or lesions. Additional topical anesthesia with 1% lidocaine was applied to the trachea and shabbir. The trachea appeared normal. There was some blood-tinged phlegm draining from the upper airway likely from the left nostril through which the bronchoscope was advanced, it had resolved at the end of the procedure. The bronchoscope was then advanced through the shabbir, which was sharp. The scope was then advanced into the right main stem and each segment, subsegement in the right upper lobe, right middle lobe and right lower lobe were visualized. There was minimal amount of secretion which were suctioned out. There were no other findings including [evidence of mass, anatomic distortions, or hemorrhage]. The bronchoscope was subsequently withdrawn and advanced into the left mainstem. Again, each segment and subsegment was well visualized. No specific masses or other lesions were identified throughout the tracheobronchial tree on the left. There was minimal amount of clear secretion which were suctioned out. The bronchoscope was then wedged in the right upper lobe anterior segment and bronchoalveolar lavage samples were obtained. 180 ml of saline was instilled and 100 ml of fluid was aspirated back and sequential aliquots. No worsening of bleeding on sequential aliquots. The bronchoscope was withdrawn and the area was suctioned clear. The bronchoscope was then re-advanced into the right lower lobe anterior segment and brushings were obtained. The bronchoscope was then withdrawn to the mainstem. The area was suctioned clear. The bronchoscope was then withdrawn. The patient tolerated the procedure well without evidence of desaturation or complications. Bronchoalveolar lavage samples were sent for cell count, Gram stain and bacterial culture, AFB culture and smear, fungal culture and smear, PJP PCR, histoplasma, cryptococcal and coccidioidal PCR along with cytology. Patient did snore significantly during sedation and needed jaw to be lifted to open the airway and improve the saturation. Recommendations: Follow-up micro, cytology and pathology Follow-up chest x-ray Very high probability of sleep apnea. Recommend CPAP/BiPAP at night and polysomnography as soon as possible as an outpatient Please note the above document was generated using voice recognition software. It may contain grammatical, syntax or spelling errors.Any formal questions or concerns about the content, text or information contained within the body of this dictation should be directly addressed to the provider for clarification. [facility] [place] Procedure Codes (Charges) Pulmonary/Thoracic Procedure 1: Pulmonary and Thoracic: 67591 Dx bronchoscopy/BAL Procedure 2: Pulmonary and Thoracic: 34213 Dx bronchoscopy/brush Sedation/Anesthesia Procedure 1: Sedation/Anesthesia: 44730 Mod Sedation by the same physician;Init15 Min Child Age 5 & Up
--- NOTE | 2023-01-18 09:20 | XRay Report ---
XR chest 1V portable CLINICAL HISTORY: Post Bronchoscopy TECHNIQUE: Single frontal radiograph of the chest was obtained. Comparison: Comparison is made to chest radiograph 01/16/2023 FINDINGS: No lines and tubes are seen. The cardiomediastinal silhouette is normal. Interval increase in nodular density in the right upper lung compatible with postbiopsy hemorrhage. Airspace opacity in the right greater than left lungs noted. No evidence of pleural effusion or pneumothorax. IMPRESSION: No evidence of pneumothorax in this patient status post biopsy. Multifocal airspace opacities likely represent atelectasis with or without superimposed aspiration/pneumonia. Expected postbiopsy hemorrha ge is noted. ACT 112: Negative or not required by law. Electronically signed by: Wilfredo Nassar M.D. 01/18/2023 9:19 AM
[2023-01-18] MEDS: VENLAFAXINE HCL XR 75 MG CAPXR PO SCH (09:56)
[2023-01-18] MEDS: OXYBUTYNIN CHLORIDE XL 5 MG TABCR PO SCH (09:56)
[2023-01-18] MEDS: allopurinoL 100 MG TAB PO SCH (09:56)
[2023-01-18] MEDS: SERTRALINE HCL 50 MG TABLET PO SCH (09:56)
[2023-01-18] MEDS: VIBEGRON 75 MG TAB PO SCH (09:56)
[2023-01-18] MEDS: INSULIN ASPART PER UNIT CHARGE SC SCH ×4 (09:59→21:07)
[2023-01-18] MEDS: IBUPROFEN 600 MG TAB PO PRN ×2 (10:01→21:07)
[2023-01-18 11:05] LABS: C Reactive Protein 38.5 mg/dl (0-0.5)
--- NOTE | 2023-01-18 11:24 | Hospitalist Progress Note ---
Date of Service January 17, 2023 Assessment & Plan (1) Pneumonia involving right lung: Plan: Unasyn + azithromycin CT chest to exclude lung abscess as discussed with pulmonology Incentive spirometer and flutter valve (2) Elevated troponin: Plan: Suspect demand-ischemia No need to repeat as x2 stable (3) Hypoxia: Plan: Aim O2 sats > 90% Does not appear to be in respiratory distress (4) T2DM (type 2 diabetes mellitus): Plan: HbA1C with AM labs Stop metformin and Trulicity Novolog: --Goal BSG Range: Low 110 mg/dL, High 140 mg/dL --Correction Factor: 45 mg/dL/unit No carb ratio --BSGs ACHS if eating, q6h if npo Add carb coverage and basal dosing if requiring frequent correction insulin (5) Hypertension: Plan: Hold olmesartan/HCTZ pending stable BP in setting of infection (6) Urge incontinence: Plan: Continue mirabegron and solifenacin (7) Hypothyroid: Plan: TSH with AM labs Continue levothyroxine Plan VTE Prophylaxis - Lovenox 40mg SQ QPM Diet - regular Disposition - admit to med/surg Admission and Anticipated Discharge Date Admission Date: January 16, 2023 Subjective Patient seen and examined at bedside. No acute distress No CP. Shortness of breath is better. No TEJEDA, Afebrile. No nausea vomiting Is n.p.o. for bronchoscopy tomorrow Physical Exam Constitutional: WD/WN, vitals as above Eyes: PERRL, conjunctivae normal, anicteric sclerae ENMT: external ear and nose normal, oropharynx normal Neck: trachea midline, no thyromegaly Respiratory: Diminished at baSES Cardiovascular: Rate/Rhythm: regular rate Gastrointestinal (Abdomen): normal bowel sounds, soft, nontender, no hepatosplenomegaly Results & Data Results & Data Vital Signs (Past 12 Hours) Vital Signs Temp Pulse Pulse Resp BP BP Pulse Ox 01/18/23 09:25 68 20 94 01/18/23 09:05 01/18/23 09:54 36.5 C 64 20 148/73 H 92 01/18/23 09:10 73 25 H 157/66 H 91 01/18/23 08:55 70 28 H 154/76 H 94 01/18/23 08:15 82 11 L 170/93 H 93 01/18/23 08:40 72 28 H 147/82 H 92 01/18/23 08:25 74 25 H 141/64 H 91 01/18/23 08:16 80 2 L 162/114 H 94 01/18/23 08:10 81 23 145/102 H 92 01/18/23 07:52 68 20 176/73 H 95 01/18/23 07:27 36.6 C 62 18 146/80 H 94 O2 Del Method O2 Flow Rate 01/18/23 09:25 Nasal Cannula 4 01/18/23 09:05 Oxymask 01/18/23 09:54 Nasal Cannula 4 01/18/23 09:10 Nasal Cannula 3 01/18/23 08:55 Oxymask 3 01/18/23 08:15 Oxymask 15 01/18/23 08:40 Oxymask 7 01/18/23 08:25 Oxymask 6 01/18/23 08:16 Oxymask 15 01/18/23 08:10 5 01/18/23 07:52 Nasal Cannula 3 01/18/23 07:27 Nasal Cannula 3 PG Care Time/CCT Total # of Minutes Spent Total Time Spent with Patient: Total time spent is greater than 50% in coordination of care (as documented) at patient's floor/unit and/or counseling patient: Coding Level of Care Code 46751 SUB INP/OBS CARE 2/35MIN Diagnoses Pneumonia involving right lung J18.9 Elevated troponin R77.8 Hypoxia R09.02 T2DM (type 2 diabetes mellitus) E11.9 Hypertension I10 Urge incontinence N39.41 Hypothyroid E03.9
[2023-01-18 12:14] LABS: Eosinophil Body Fluid Man 2 %; Fluid Mono/Macrophage 27 %; Lymphocyte Body Fluid Man 20 %; Neutrophil Body Fluid Man 51 %
[2023-01-18] MEDS: hydrOXYzine HCl 25 MG TAB PO PRN (13:23)
[2023-01-18] MEDS: ACETAMINOPHEN 325 MG TAB PO PRN (13:23)
[2023-01-18] MEDS: AZITHROMYCIN 250 MG TAB PO SCH (21:08)
[2023-01-18] MEDS: PRAVASTATIN SOD 40 MG TAB PO SCH (21:09)
[2023-01-18] MEDS: PRAMIPEXOLE DIHYDROCHLO 0.25 MG TAB PO SCH (21:09)
[2023-01-18] MEDS: LATANOPROST 0.005% OP SOLN 2.5 ML BTL OPB SCH (21:09)
[2023-01-18] MEDS ORDERED: ONDANSETRON INJ 2 MG/ML 2 ML VIAL IV PRN (21:52)
[2023-01-19] MEDS: PANTOprazole 40 MG TAB PO SCH (05:53)
[2023-01-19] MEDS: LEVOTHYROXINE SODIUM 100 MCG TABLET PO SCH (05:53)
--- NOTE | 2023-01-19 06:32 | Hospitalist Progress Note ---
Date of Service January 18, 2023 Assessment & Plan (1) Pneumonia involving right lung: Plan: Unasyn + azithromycin CT chest to exclude lung abscess as discussed with pulmonology Incentive spirometer and flutter valve (2) Elevated troponin: Plan: Suspect demand-ischemia No need to repeat as x2 stable (3) Hypoxia: Plan: Aim O2 sats > 90% Does not appear to be in respiratory distress (4) T2DM (type 2 diabetes mellitus): Plan: HbA1C with AM labs Stop metformin and Trulicity Novolog: --Goal BSG Range: Low 110 mg/dL, High 140 mg/dL --Correction Factor: 45 mg/dL/unit No carb ratio --BSGs ACHS if eating, q6h if npo Add carb coverage and basal dosing if requiring frequent correction insulin (5) Hypertension: Plan: Hold olmesartan/HCTZ pending stable BP in setting of infection (6) Urge incontinence: Plan: Continue mirabegron and solifenacin (7) Hypothyroid: Plan: TSH with AM labs Continue levothyroxine Plan VTE Prophylaxis - Lovenox 40mg SQ QPM Diet - regular Disposition - admit to med/surg Admission and Anticipated Discharge Date Admission Date: January 16, 2023 Subjective Today patient seen and examined at bedside at this time feels 50% better following the bronchoscopy She is on 2 L of oxygen by nasal cannula When I treat her shortness of breath with severe including dyspnea on exertion could not walk or carry her purse and it was worsening in the 5 days prior to admission. On Monday her COVID test was negative Right lower lobe by CT looks like groundglass She does not smoke cigarettes or vape Yesterday Patient seen and examined at bedside. No acute distress No CP. Shortness of breath is better. No TEJEDA, Afebrile. No nausea vomiting Is n.p.o. for bronchoscopy tomorrow Physical Exam Constitutional: WD/WN, vitals as above Eyes: PERRL, conjunctivae normal, anicteric sclerae ENMT: external ear and nose normal, oropharynx normal Neck: trachea midline, no thyromegaly Respiratory: normal respiratory effort Cardiovascular: RRR, no murmur, no edema Gastrointestinal (Abdomen): normal bowel sounds, soft, nontender, no hepatosplenomegaly Musculoskeletal: no cyanosis or clubbing, extremities motor strength 5/5 Skin: no rashes, warm and dry Results & Data Results & Data Vital Signs (Past 12 Hours) Vital Signs Temp Pulse Resp BP Pulse Ox O2 Del Method O2 Flow Rate 01/19/23 02:38 36.6 C 73 18 134/68 92 Room Air 01/19/23 00:23 Nasal Cannula 2 01/18/23 21:58 88 93 Nasal Cannula 2 01/18/23 21:09 Nasal Cannula 2 01/18/23 21:25 37.1 C 98 H 18 137/60 92 Nasal Cannula 01/18/23 19:54 37.2 C 97 H 18 123/62 93 Room Air PG Care Time/CCT Total # of Minutes Spent Total Time Spent with Patient: Total time spent is greater than 50% in coordination of care (as documented) at patient's floor/unit and/or counseling patient: Coding Level of Care Code 24751 SUB INP/OBS CARE 2/35MIN Diagnoses Pneumonia involving right lung J18.9 Elevated troponin R77.8 Hypoxia R09.02 T2DM (type 2 diabetes mellitus) E11.9 Hypertension I10 Urge incontinence N39.41 Hypothyroid E03.9 Time Spent (min) 40
--- NOTE | 2023-01-19 07:38 | Pulmonology Progress Note ---
Date of Service January 19, 2023 Assessment & Plan (1) Acute respiratory failure with hypoxia: (2) Multifocal pneumonia: (3) Obesity: (4) Pulmonary hypertension: Plan CT chest 01/16/2023 personally reviewed: Groundglass opacities appreciated bilateral upper lobes as well as the right lower lobe Minimal groundglass opacity in the left lower lobe as well Minimal mediastinal lymphadenopathy 2D echo 01/17/2023: EF 60-65%, grade 2 diastolic dysfunction, RVSP 40-50 mmHg, RV normal in size and function, mild MR -- Acute hypoxic respiratory failure Secondary to multilobar pneumonia BNP 332, procalcitonin 0.08 Respiratory bio fire negative for everything including RSV, entero-/renal, mycoplasma and COVID-[address] chest no signs of abscess S/p bronch 01/19/2023, no signs of diffuse alveolar hemorrhage. Follow-up cultures Follow-up autoimmune work-up Differential includes but not limited to infectious process, noninfectious process like NSIP, diffuse alveolar hemorrhage, pulmonary alveolar proteinosis -- Pulmonary hypertension Type II likely from grade 2 diastolic dysfunction Possible pulmonary hypertension also playing a role -- LISBETH BiPAP nightly and as needed shortness of breath Patient was not able to tolerate CPAP in the past She does seem to have moderate to severe sleep apnea which was appreciated under conscious sedation during bronchoscopy Importance of CPAP/BiPAP expected the patient in depth Plan: Chest x-ray from today shows worsening infiltrate on the right side at the location where BAL was performed. It is not uncommon to have this finding on the chest x-ray. Continue with diuretics I will add solu-medrol 40mg BID Continue with atypical antibiotic coverage for total of 5-7 days O2 supplementation to keep oxygen saturation between 90-92% Please note the above document was generated using voice recognition software. It may contain grammatical, syntax or spelling errors.Any formal questions or concerns about the content, text or information contained within the body of this dictation should be directly addressed to the provider for clarification. Admission and Anticipated Discharge Date Admission Date: January 16, 2023 Subjective Patient seen and examined at bedside. No acute distress, no adverse events overnight She was saturating 87-88% on 2 L, I went up to 3 L. Unfortunately she did not use CPAP overnight stating that somebody told her it will charge her if she uses it Importance of using CPAP at night Cough is decreased in intensity. When she brings up phlegm is mostly clear, denies any hemoptysis No headache, no blurry vision Review of Systems Review of Systems: All systems reviewed & are unremarkable except as noted in Subjective Physical Exam Physical Exam: Constitutional: No acute distress HEENT: EOMI, PERRLA Respiratory system: Decreased air entry bilaterally, minimal expiratory wheeze, no rhonchi, positive crackles bilaterally CVS: S1-S2 positive, no murmurs or gallops Abdomen: Soft, nontender, nondistended, positive bowel sounds x4, obese Extremities: +2 pulses bilaterally radialis/ dorsalis pedis, no cyanosis, no edema Neuro: Awake alert oriented x3 Psych: Normal mood and affect G/U: No Oliveros Skin: no rashes, warm and dry Lymphatic: no cervical or axillary lymphadenopathy Results & Data Results & Data Vital Signs (Past 12 Hours) Vital Signs Temp Pulse Resp BP Pulse Ox O2 Del Method O2 Flow Rate 01/19/23 02:38 36.6 C 73 18 134/68 92 Room Air 01/19/23 00:23 Nasal Cannula 2 01/18/23 21:58 88 93 Nasal Cannula 2 01/18/23 21:09 Nasal Cannula 2 01/18/23 21:25 37.1 C 98 H 18 137/60 92 Nasal Cannula 01/18/23 19:54 37.2 C 97 H 18 123/62 93 Room Air Laboratory Results 01/17/23 07:35 01/17/23 07:35 PG Care Time/CCT Total # of Minutes Spent Total Time Spent with Patient: Total time spent is greater than 50% in coordination of care (as documented) at patient's floor/unit and/or counseling patient: Coding Level of Care Code 80444 SUB INP/OBS CARE 3/50MIN Diagnoses Acute respiratory failure with hypoxia J96.01 Multifocal pneumonia J18.9 Obesity E66.9 Pulmonary hypertension I27.20
[2023-01-19 08:37] LABS: Basophils # (auto) 0.03 K/uL (0-0.2); Basophils % (auto) 0.3 %; Eosinophils # (auto) 0.23 K/uL (0-0.50); Eosinophils % (auto) 2.6 %; Hematocrit (blood only) 31.2 % (37.0-47.0); Hemoglobin 10.2 g/dl (12.0-16.0); Immature Granulocytes # (auto) 0.04 K/uL (0.01-0.20); Immature Granulocytes % (auto) 0.5 %; Lymphocytes # (auto) 0.83 K/uL (1.2-3.4); Lymphocytes % (auto) 9.5 %; Mean Corpuscular Hemoglobin 28.3 pg (25.0-34.0); Mean Corpuscular Hgb Conc 32.7 g/dL (32.0-36.0); Mean Corpuscular Volume 86.7 fL (80.0-100.0); Mean Platelet Volume 10.4 fL (9.4-12.4); Monocytes # (auto) 0.63 K/uL (0.11-0.59); Monocytes % (auto) 7.2 %; Neutrophils % (auto) 79.9 %; Platelet Count 247 K/uL (130-400); RDW Coefficient of Variation 13.9 % (11.5-14.5); RDW Standard Deviation 44.1 fL (36.4-46.3); White Blood Count 8.76 K/ul (4.8-10.8)
[2023-01-19] MEDS: INSULIN ASPART PER UNIT CHARGE SC SCH ×4 (08:47→20:16)
[2023-01-19] MEDS: SERTRALINE HCL 50 MG TABLET PO SCH (08:55)
[2023-01-19] MEDS: VENLAFAXINE HCL XR 75 MG CAPXR PO SCH (08:55)
[2023-01-19] MEDS: FUROSEMIDE 40 MG/4 ML VIAL IV SCH (08:56)
[2023-01-19] MEDS: VIBEGRON 75 MG TAB PO SCH (08:56)
[2023-01-19] MEDS: allopurinoL 100 MG TAB PO SCH (08:56)
[2023-01-19] MEDS: OXYBUTYNIN CHLORIDE XL 5 MG TABCR PO SCH (08:56)
[2023-01-19] MEDS ORDERED: methylPREDNISolone 40 MG in SYRINGE 0 ML IV SCH (09:00)
[2023-01-19] MEDS: methylPREDNISolone 40 MG in SYRINGE 0 ML IV SCH ×2 (09:07→20:17)
--- NOTE | 2023-01-19 09:11 | XRay Report ---
XR chest 1V portable HISTORY: Shortness of breath. Follow-up. COMPARISON: Chest 01/18/2023. FINDINGS: Right upper lobe consolidation persists. Additional patchy bilateral airspace opacities are also similar to the prior study. No pneumothorax. The heart is mildly enlarged. Suspect trace bilate ral pleural effusions. IMPRESSION: No significant change in the bilateral airspace opacities. ACT 112: Negative or not required by law. Electronically signed by: Maxwell Chester M.D. 01/19/2023 9:10 AM
[2023-01-19] MEDS ORDERED: FUROSEMIDE INJ 20 MG/2 ML VIAL IV ONE (18:30)
[2023-01-19 18:33] LABS: BUN Creatinine Ratio 21.4 (10-20); Calcium 10.5 mg/dl (8.6-10.3); Creatinine Clr Calc Pharmacy 52.9 ml/min; Est GFR (Non-African American) 53.5 ml/min; Potassium 3.7 mmol/L (3.5-5.1)
[2023-01-19] MEDS: IBUPROFEN 600 MG TAB PO PRN (19:24)
[2023-01-19] MEDS: AZITHROMYCIN 250 MG TAB PO SCH (20:17)
[2023-01-19] MEDS: LATANOPROST 0.005% OP SOLN 2.5 ML BTL OPB SCH (20:17)
[2023-01-19] MEDS: PRAVASTATIN SOD 40 MG TAB PO SCH (20:18)
[2023-01-19] MEDS: PRAMIPEXOLE DIHYDROCHLO 0.25 MG TAB PO SCH (20:18)
--- NOTE | 2023-01-19 22:56 | Hospitalist Progress Note ---
Date of Service January 19, 2023 Assessment & Plan (1) Pneumonia involving right lung: Plan: Unasyn + azithromycin CT chest to exclude lung abscess as discussed with pulmonology Incentive spirometer and flutter valve Patient had a bronch yesterday. increased methlprednisolone. appreciate input from pulm. (2) Elevated troponin: Plan: Suspect demand-ischemia No need to repeat as x2 stable (3) Hypoxia: Plan: Aim O2 sats > 90% Does not appear to be in respiratory distress (4) T2DM (type 2 diabetes mellitus): Plan: HbA1C with AM labs Stop metformin and Trulicity Novolog: --Goal BSG Range: Low 110 mg/dL, High 140 mg/dL --Correction Factor: 45 mg/dL/unit No carb ratio --BSGs ACHS if eating, q6h if npo Add carb coverage and basal dosing if requiring frequent correction insulin (5) Hypertension: Plan: Hold olmesartan/HCTZ pending stable BP in setting of infection (6) Urge incontinence: Plan: Continue mirabegron and solifenacin (7) Hypothyroid: Plan: TSH with AM labs Continue levothyroxine Plan VTE Prophylaxis - Lovenox 40mg SQ QPM Diet - regular Disposition - admit to med/surg Admission and Anticipated Discharge Date Admission Date: January 16, 2023 Subjective Patient reports feeling much better than when she first came in. However, not much improvement from yesterday. Review of Systems Review of Systems: All systems reviewed & are unremarkable except as noted in HPI & below Physical Exam Constitutional: WD/WN, vitals as above Eyes: PERRL, conjunctivae normal, anicteric sclerae ENMT: external ear and nose normal, oropharynx normal Neck: trachea midline, no thyromegaly Respiratory: normal respiratory effort Cardiovascular: RRR, no murmur, no edema Rate/Rhythm: regular rate Gastrointestinal (Abdomen): normal bowel sounds, soft, nontender, no hepatosplenomegaly Musculoskeletal: no cyanosis or clubbing, extremities motor strength 5/5 Skin: no rashes, warm and dry Psychiatric: A+Ox3, euthymic affect Results & Data Results & Data Vital Signs (Past 12 Hours) Vital Signs Temp Pulse Resp BP Pulse Ox O2 Del Method O2 Flow Rate 01/19/23 15:24 36.4 C L 79 16 124/79 93 Nasal Cannula 2 PG Care Time/CCT Total # of Minutes Spent Total Time Spent with Patient: Total time spent is greater than 50% in coordination of care (as documented) at patient's floor/unit and/or counseling patient: Coding Level of Care Code 87700 SUB INP/OBS CARE 2/35MIN Diagnoses Pneumonia involving right lung J18.9 Elevated troponin R77.8 Hypoxia R09.02 T2DM (type 2 diabetes mellitus) E11.9 Hypertension I10 Urge incontinence N39.41 Hypothyroid E03.9
[2023-01-20] MEDS: PANTOprazole 40 MG TAB PO SCH (05:46)
[2023-01-20] MEDS: LEVOTHYROXINE SODIUM 100 MCG TABLET PO SCH (05:46)
[2023-01-20 07:58] LABS: Calcium 10.6 mg/dl (8.6-10.3); Creatinine Clr Calc Pharmacy 45.4 ml/min; Est GFR (African American) 51.6 ml/min; Est GFR (Non-African American) 44.5 ml/min; Potassium 3.7 mmol/L (3.5-5.1)
[2023-01-20] MEDS: allopurinoL 100 MG TAB PO SCH (08:35)
[2023-01-20] MEDS: SERTRALINE HCL 50 MG TABLET PO SCH (08:35)
[2023-01-20] MEDS: VENLAFAXINE HCL XR 75 MG CAPXR PO SCH (08:35)
[2023-01-20] MEDS: VIBEGRON 75 MG TAB PO SCH (08:35)
[2023-01-20] MEDS: methylPREDNISolone 40 MG in SYRINGE 0 ML IV SCH ×2 (08:36→20:14)
[2023-01-20] MEDS: FUROSEMIDE 40 MG/4 ML VIAL IV SCH (08:36)
[2023-01-20] MEDS: OXYBUTYNIN CHLORIDE XL 5 MG TABCR PO SCH (08:36)
[2023-01-20] MEDS: INSULIN ASPART PER UNIT CHARGE SC SCH ×4 (08:44→20:12)
--- NOTE | 2023-01-20 09:20 | Pulmonology Progress Note ---
Date of Service January 20, 2023 Assessment & Plan (1) Acute respiratory failure with hypoxia: (2) Multifocal pneumonia: (3) Obesity: (4) Pulmonary hypertension: Plan CT chest 01/16/2023 personally reviewed: Groundglass opacities appreciated bilateral upper lobes as well as the right lower lobe Minimal groundglass opacity in the left lower lobe as well Minimal mediastinal lymphadenopathy 2D echo 01/17/2023: EF 60-65%, grade 2 diastolic dysfunction, RVSP 40-50 mmHg, RV normal in size and function, mild MR -- Acute hypoxic respiratory failure Secondary to multilobar pneumonia BNP 332, procalcitonin 0.08 Respiratory bio fire negative for everything including RSV, entero-/renal, mycoplasma and COVID-[address] chest no signs of abscess S/p bronch 01/19/2023, no signs of diffuse alveolar hemorrhage. 20% lymphocytes on the BAL, CD4: CD8 ratio 5.04 Follow-up cultures Follow-up autoimmune work-up Differential includes but not limited to infectious process, noninfectious process like NSIP, diffuse alveolar hemorrhage, pulmonary alveolar proteinosis -- Pulmonary hypertension Type II likely from grade 2 diastolic dysfunction Possible pulmonary hypertension also playing a role -- LISBETH BiPAP nightly and as needed shortness of breath Patient was not able to tolerate CPAP in the past She does seem to have moderate to severe sleep apnea which was appreciated under conscious sedation during bronchoscopy Importance of CPAP/BiPAP expected the patient in depth Plan: Chest x-ray from today shows improvement in the alveolar opacities in the right side compared to yesterday. Alveolar opacities still persist bilaterally more on the right side Continue with Solu-Medrol DC furosemide Continue with atypical antibiotic coverage for total of 5 days O2 supplementation to keep oxygen saturation between 90-92% Patient will likely need oxygen on discharge Please note the above document was generated using voice recognition software. It may contain grammatical, syntax or spelling errors.Any formal questions or concerns about the content, text or information contained within the body of this dictation should be directly addressed to the provider for clarification. Admission and Anticipated Discharge Date Admission Date: January 16, 2023 Subjective Patient seen and examined at bedside. No acute distress, no adverse events overnight She was saturating 91% on 2 L nasal cannula She did use the C PAP overnight and found benefit from it. She was able to tolerate the mask. Shortness of breath is improved. Fair appetite Denies any nausea or vomiting Review of Systems Review of Systems: All systems reviewed & are unremarkable except as noted in Subjective Physical Exam Physical Exam: Constitutional: No acute distress HEENT: EOMI, PERRLA Respiratory system: Decreased air entry bilaterally, minimal expiratory wheeze, no rhonchi, positive crackles bilaterally CVS: S1-S2 positive, no murmurs or gallops Abdomen: Soft, nontender, nondistended, positive bowel sounds x4, obese Extremities: +2 pulses bilaterally radialis/ dorsalis pedis, no cyanosis, no edema Neuro: Awake alert oriented x3 Psych: Normal mood and affect G/U: No Oliveros Skin: no rashes, warm and dry Lymphatic: no cervical or axillary lymphadenopathy Results & Data Results & Data Vital Signs (Past 12 Hours) Vital Signs Temp Pulse Pulse Resp BP Pulse Ox O2 Del Method 01/20/23 07:21 36.3 C L 68 18 151/76 H 95 CPAP 01/20/23 04:08 73 20 90 01/19/23 22:59 36.6 C 75 22 135/74 96 Nasal Cannula O2 Flow Rate 01/20/23 07:21 01/20/23 04:08 4 01/19/23 22:59 2 Laboratory Results 01/19/23 08:02 01/20/23 07:02 PG Care Time/CCT Total # of Minutes Spent Total Time Spent with Patient: Total time spent is greater than 50% in coordination of care (as documented) at patient's floor/unit and/or counseling patient: Coding Level of Care Code 35617 SUB INP/OBS CARE 2/35MIN Diagnoses Acute respiratory failure with hypoxia J96.01 Multifocal pneumonia J18.9 Obesity E66.9 Pulmonary hypertension I27.20
[2023-01-20] MEDS: AZITHROMYCIN 250 MG TAB PO SCH (11:43)
--- NOTE | 2023-01-20 12:52 | XRay Report ---
XR chest 1V portable CLINICAL HISTORY: f/u TECHNIQUE: Single frontal radiograph of the chest was obtained. Comparison: Comparison is made to chest radiograph 01/19/2023 FINDINGS: No lines and tubes are seen. Cardiomegaly is noted. Right airspace opacity is slightly less conspicuo us on today's exam. No evidence of pleural effusion or pneumothorax. IMPRESSION: Right lung airspace opacity is slightly improved and left airspace opacities appear resolved. Finding s may represent improving pneumonia. ACT 112: Negative or not required by law. Electronically signed by: Wilfredo Nassar M.D. 01/20/2023 12:50 PM
[2023-01-20] MEDS: hydrOXYzine HCl 25 MG TAB PO PRN (13:08)
[2023-01-20] MEDS ORDERED: VENLAFAXINE HCL 50 MG TAB PO ONE (17:45)
[2023-01-20] MEDS: LATANOPROST 0.005% OP SOLN 2.5 ML BTL OPB SCH (20:13)
[2023-01-20] MEDS: PRAVASTATIN SOD 40 MG TAB PO SCH (20:14)
[2023-01-20] MEDS: PRAMIPEXOLE DIHYDROCHLO 0.25 MG TAB PO SCH (20:14)
[2023-01-20] MEDS: ENOXAPARIN INJ 40 MG/0.4 ML SYR SQ SCH (20:14)
[2023-01-20] MEDS: IBUPROFEN 600 MG TAB PO PRN (20:21)
--- NOTE | 2023-01-20 23:05 | Hospitalist Progress Note ---
Date of Service January 20, 2023 Assessment & Plan (1) Pneumonia involving right lung: Plan: Unasyn + azithromycin initally, now on azithromycin , will continue [address] chest to exclude lung abscess as discussed with pulmonology Incentive spirometer and flutter valve Patient had a bronch yesterday. increased methlprednisolone. appreciate input from pulm. (2) Elevated troponin: Plan: Suspect demand-ischemia No need to repeat as x2 stable (3) Hypoxia: Plan: Aim O2 sats > 90% Does not appear to be in respiratory distress (4) T2DM (type 2 diabetes mellitus): Plan: HbA1C with AM labs Stop metformin and Trulicity Novolog: --Goal BSG Range: Low 110 mg/dL, High 140 mg/dL --Correction Factor: 45 mg/dL/unit No carb ratio --BSGs ACHS if eating, q6h if npo Add carb coverage and basal dosing if requiring frequent correction insulin (5) Hypertension: Plan: Hold olmesartan/HCTZ pending stable BP in setting of infection (6) Urge incontinence: Plan: Continue mirabegron and solifenacin (7) Hypothyroid: Plan: TSH with AM labs Continue levothyroxine Plan VTE Prophylaxis - Lovenox 40mg SQ QPM Diet - regular Disposition - admit to med/surg Admission and Anticipated Discharge Date Admission Date: January 16, 2023 Subjective Patient reports breathig better. Review of Systems Review of Systems: All systems reviewed & are unremarkable except as noted in HPI & below Physical Exam Constitutional: WD/WN, vitals as above Eyes: PERRL, conjunctivae normal, anicteric sclerae ENMT: external ear and nose normal, oropharynx normal Neck: trachea midline, no thyromegaly Respiratory: normal respiratory effort Cardiovascular: RRR, no murmur, no edema Rate/Rhythm: regular rate Gastrointestinal (Abdomen): normal bowel sounds, soft, nontender, no hepatosplenomegaly Musculoskeletal: no cyanosis or clubbing, extremities motor strength 5/5 Skin: no rashes, warm and dry Psychiatric: A+Ox3, euthymic affect Results & Data Results & Data Vital Signs (Past 12 Hours) Vital Signs Temp Pulse Pulse Resp BP Pulse Ox O2 Del Method 01/20/23 22:42 71 30 H 93 01/20/23 21:12 36.7 C 72 18 135/67 94 Nasal Cannula 01/20/23 19:44 Nasal Cannula 01/20/23 14:53 36.4 C L 70 18 123/77 93 Nasal Cannula O2 Flow Rate 01/20/23 22:42 2 01/20/23 21:12 2 01/20/23 19:44 3 01/20/23 14:53 2 PG Care Time/CCT Total # of Minutes Spent Total Time Spent with Patient: Total time spent is greater than 50% in coordination of care (as documented) at patient's floor/unit and/or counseling patient: Coding Level of Care Code 13420 SUB INP/OBS CARE 2/35MIN Diagnoses Pneumonia involving right lung J18.9 Elevated troponin R77.8 Hypoxia R09.02 T2DM (type 2 diabetes mellitus) E11.9 Hypertension I10 Urge incontinence N39.41 Hypothyroid E03.9
[2023-01-21] MEDS: PANTOprazole 40 MG TAB PO SCH (05:28)
[2023-01-21] MEDS: LEVOTHYROXINE SODIUM 100 MCG TABLET PO SCH (05:28)
[2023-01-21 07:43] LABS: Hematocrit (blood only) 31.4 % (37.0-47.0); Hemoglobin 10.2 g/dl (12.0-16.0); Mean Corpuscular Hemoglobin 28.3 pg (25.0-34.0); Mean Corpuscular Hgb Conc 32.5 g/dL (32.0-36.0); Mean Platelet Volume 10.8 fL (9.4-12.4); Platelet Count 323 K/uL (130-400); RDW Coefficient of Variation 13.9 % (11.5-14.5); RDW Standard Deviation 44.5 fL (36.4-46.3); Red Blood Count 3.61 M/uL (4.20-5.40); White Blood Count 10.33 K/ul (4.8-10.8)
[2023-01-21 08:02] LABS: BUN Creatinine Ratio 33.1 (10-20); Calcium 10.4 mg/dl (8.6-10.3); Creatinine Clr Calc Pharmacy 43.9 ml/min; Est GFR (African American) 49.6 ml/min; Est GFR (Non-African American) 42.8 ml/min; Potassium 3.9 mmol/L (3.5-5.1)
[2023-01-21] MEDS: INSULIN ASPART PER UNIT CHARGE SC SCH ×2 (08:41→12:48)
[2023-01-21] MEDS: AZITHROMYCIN 250 MG TAB PO SCH (08:54)
[2023-01-21] MEDS: VENLAFAXINE HCL XR 75 MG CAPXR PO SCH (08:54)
[2023-01-21] MEDS: SERTRALINE HCL 50 MG TABLET PO SCH (08:54)
[2023-01-21] MEDS: allopurinoL 100 MG TAB PO SCH (08:54)
[2023-01-21] MEDS: methylPREDNISolone 40 MG in SYRINGE 0 ML IV SCH (08:55)
[2023-01-21] MEDS: OXYBUTYNIN CHLORIDE XL 5 MG TABCR PO SCH (08:55)
[2023-01-21] MEDS: VIBEGRON 75 MG TAB PO SCH (08:55)
--- NOTE | 2023-01-21 09:37 | Pulmonology Progress Note ---
Date of Service January 21, 2023 Assessment & Plan (1) Acute respiratory failure with hypoxia: (2) Multifocal pneumonia: (3) Obesity: (4) Pulmonary hypertension: Plan CT chest 01/16/2023 personally reviewed: Groundglass opacities appreciated bilateral upper lobes as well as the right lower lobe Minimal groundglass opacity in the left lower lobe as well Minimal mediastinal lymphadenopathy 2D echo 01/17/2023: EF 60-65%, grade 2 diastolic dysfunction, RVSP 40-50 mmHg, RV normal in size and function, mild MR -- Acute hypoxic respiratory failure Secondary to multilobar pneumonia BNP 332, procalcitonin 0.08 Respiratory bio fire negative for everything including RSV, entero-/renal, mycoplasma and COVID-[address] chest no signs of abscess S/p bronch 01/19/2023, no signs of diffuse alveolar hemorrhage. 20% lymphocytes on the BAL, CD4: CD8 ratio 5.04 Follow-up cultures Follow-up autoimmune work-up Differential includes but not limited to infectious process, noninfectious process like NSIP, diffuse alveolar hemorrhage, pulmonary alveolar proteinosis -- Pulmonary hypertension Type II likely from grade 2 diastolic dysfunction Possible pulmonary hypertension also playing a role -- LISBETH BiPAP nightly and as needed shortness of breath Patient was not able to tolerate CPAP in the past She does seem to have moderate to severe sleep apnea which was appreciated under conscious sedation during bronchoscopy Importance of CPAP/BiPAP expected the patient in depth Plan: MT Solu-Medrol, starting tomorrow would recommend prednisone 40 mg for 3 days followed by 20 mg for 3 days and then stop Complete the course of the biotic for total of 5 days Patient is willing to give another trial of CPAP at home. Advised her to reach out to primary care who ordered the sleep study approximately 2 years ago if they can order it directly and that would be the best, if not then she will need a polysomnography again as an outpatient O2 supplementation to keep oxygen saturation between 90-92% No further issues from pulmonary perspective, We will sign off Please call directly with any questions Please note the above document was generated using voice recognition software. It may contain grammatical, syntax or spelling errors.Any formal questions or concerns about the content, text or information contained within the body of this dictation should be directly addressed to the provider for clarification. Admission and Anticipated Discharge Date Admission Date: January 16, 2023 Subjective Patient seen and examined at bedside. No acute distress, no adverse events overnight. Was saturating 94-95% on 2 L nasal cannula at rest. Stated that she feels better Denies any cough, no hemoptysis Fair appetite Did use CPAP overnight and found benefit from it. Tolerated well Review of Systems Review of Systems: All systems reviewed & are unremarkable except as noted in Subjective Physical Exam Physical Exam: Constitutional: No acute distress HEENT: EOMI, PERRLA Respiratory system: Decreased air entry bilaterally, minimal expiratory wheeze, no rhonchi, positive crackles bilaterally more on the right side CVS: S1-S2 positive, no murmurs or gallops Abdomen: Soft, nontender, nondistended, positive bowel sounds x4, obese Extremities: +2 pulses bilaterally radialis/ dorsalis pedis, no cyanosis, no edema Neuro: Awake alert oriented x3 Psych: Normal mood and affect G/U: No Oliveros Skin: no rashes, warm and dry Lymphatic: no cervical or axillary lymphadenopathy Results & Data Results & Data Vital Signs (Past 12 Hours) Vital Signs Temp Pulse Pulse Resp BP Pulse Ox O2 Del Method 01/21/23 07:30 36.7 C 69 18 141/76 H 93 Room Air 01/21/23 03:16 28 H 94 01/20/23 22:42 71 30 H 93 O2 Flow Rate 01/21/23 07:30 2 01/21/23 03:16 2 01/20/23 22:42 2 Laboratory Results 01/21/23 05:58 01/21/23 05:58 PG Care Time/CCT Total # of Minutes Spent Total Time Spent with Patient: Total time spent is greater than 50% in coordination of care (as documented) at patient's floor/unit and/or counseling patient: Coding Level of Care Code 06798 SUB INP/OBS CARE 2/35MIN Diagnoses Acute respiratory failure with hypoxia J96.01 Multifocal pneumonia J18.9 Obesity E66.9 Pulmonary hypertension I27.20
--- NOTE | 2023-01-21 16:09 | Discharge Summary ---
Date of Service January 21, 2023 Admission HPI Per Admitting Provider Ketty Hernández is a 72 year old female who presents to the ER with shortness of breath. She reports symptoms started Koby night (3 days ago). Symptoms with shortness of breath, sore throat, generalized aches, frontal headache, dry cough. She denies any fever, chills, nasal congestion, sinus pain, post nasal drip or chest pain. Her shortness of breath has progressively got worse over the last 3 days and she was having to rest for 10 minutes today after short walks therefore decided to come to the ER. Discharge Exam Constitutional WD/WN, vitals as above Eyes PERRL, conjunctivae normal, anicteric sclerae ENMT external ear and nose normal, oropharynx normal Neck trachea midline, no thyromegaly Respiratory normal respiratory effort Cardiovascular RRR, no murmur, no edema Rate/Rhythm: regular rate Gastrointestinal (Abdomen) normal bowel sounds, soft, nontender, no hepatosplenomegaly Musculoskeletal no cyanosis or clubbing, extremities motor strength 5/5 Skin no rashes, warm and dry Psychiatric A+Ox3, euthymic affect Discharge Data Allergies Allergy/AdvReac Type Severity Reaction Status Date / Time Beta-Blockers AdvReac Severe wipes me Verified 01/16/23 19:55 (Beta-Adrenergic Bloc out Consultations 01/16/23 19:09 ED Decision to Admit Stat Procedures Performed Operation Date: 01/18/23 08:00 Actual Procedures p Bronchoscopy Respiratory - [facility]erson [facility] Ordered Studies 01/16/23 19:34 CT chest diagnostic w con Stat Hospital Course (1) Pneumonia involving right lung: Unasyn + azithromycin initally, now on azithromycin , will continue [address] chest to exclude lung abscess as discussed with pulmonology Incentive spirometer and flutter valve Patient had a bronch yesterday. increased methlprednisolone. appreciate input from pulm. (2) Elevated troponin: Suspect demand-ischemia No need to repeat as x2 stable (3) Hypoxia: Aim O2 sats > 90% Does not appear to be in respiratory distress (4) T2DM (type 2 diabetes mellitus): HbA1C with AM labs Stop metformin and Trulicity Novolog: --Goal BSG Range: Low 110 mg/dL, High 140 mg/dL --Correction Factor: 45 mg/dL/unit No carb ratio --BSGs ACHS if eating, q6h if npo Add carb coverage and basal dosing if requiring frequent correction insulin (5) Hypertension: Hold olmesartan/HCTZ pending stable BP in setting of infection (6) Urge incontinence: Continue mirabegron and solifenacin (7) Hypothyroid: TSH with AM labs Continue levothyroxine Plan VTE Prophylaxis - Lovenox 40mg SQ QPM Diet - regular Disposition - admit to med/surg Discharge Plan Discharge Items Patient Disposition: Home - Self-Care Reason For Visit: COMMUNITY ACQUIRED PNEUMONIA Discharge Diagnosis: community acquired pneumonia Activity: Resume your previous activity Non-emergency contact: Primary Care Provider Call non-emergency contact if: you have any medication questions Follow-up/Referrals: Ghassan Kahn, [Primary Care Provider] - Diet: Carb Consistent or DM2 Addtl Attending Provider Instructions: recommend followup with PCP within 1 week. recommend discussion possibly with PCP or Endocrinology regarding your calcium and elevated PTH. recommend your PCP rechecks your calcium and kidney function. Use oxygen for 3 liters on ambulation. Pending Studies at Discharge: No Stand-Alone Forms: My [facility] [employer], Smoking Cessation Medications and DC Order Prescriptions: New azithromycin 250 mg Tablet 500 mg PO QAM Qty: 3 0RF prednisone 20 mg tablet See Rx Instructions .ROUTE .COMPLEX Qty: 9 0RF Rx Instructions: Take 2 tablets for 3 days by mouth once daily, then 1 tablet for 3 days by mouth once daily olmesartan 20 mg tablet 20 mg PO DAILY Qty: 30 0RF Continued venlafaxine 75 mg capsule,extended release 24hr 75 mg PO QAM allopurinol 100 mg tablet 100 mg PO QAM metformin 500 mg tablet extended release 24 hr 500 mg PO BIDM sertraline 50 mg tablet 50 mg PO QAM Myrbetriq 50 mg tablet extended release 24 hr 50 mg PO QAM estradiol 1 mg tablet 1 mg PO QAM pantoprazole 40 mg tablet,delayed release (DR/EC) 40 mg PO DAILYBB cyclobenzaprine 5 mg tablet 5 mg PO UD PRN (Reason: Muscle Spasm) Trulicity 1.5 mg/0.5 mL pen injector 1.5 mg SUBCUT WK Rx Instructions: hydroxyzine HCl 25 mg tablet 25 mg PO Q8 PRN (Reason: Anxiety) solifenacin 5 mg tablet 5 mg PO QAM latanoprost 0.005 % drops 1 drp OPB QPM pravastatin 40 mg tablet 40 mg PO HS pramipexole 0.25 mg tablet 0.25 mg PO HS fluoride (sodium) [Sodium Fluoride 5000 Plus] 1.1 % cream 1 applic dental QAM levothyroxine 100 mcg tablet 100 mcg PO DAILYBB Discontinued olmesartan-hydrochlorothiazide 40-25 mg tablet 1 tab PO QAM Discharge Orders: Discharge Order (Routine); Ordered 01/21/23 Ordered By: Brad Hampton/Other Patient Handouts: Managing Type 2 Diabetes Admission Data Admit Date/Time: 01/16/23 19:37 Attending Provider: Brad Marcos Admit Provider: Misha Bueno Primary Care Provider: Ghassan Kahn Other Providers: Misha Bueno Other Interventions: Discharge Summary Assessment (RN) Last Done: 01/21/23 15:45 Coding Diagnoses Pneumonia involving right lung J18.9 Elevated troponin R77.8 Hypoxia R09.02 T2DM (type 2 diabetes mellitus) E11.9 Hypertension I10 Urge incontinence N39.41 Hypothyroid E03.9
[2023-01-23 14:37] LABS: Pneumocystis jirovecii PCRQual NOT DETECTED; Pneumocystis jirovecii Source BAL
[2023-01-25 17:38] LABS: Angiotensin Converting Enzyme 32 U/L (9-67); Anti Cardiolipin Ab IgG <2.0 GPL-U/mL; Anti Cardiolipin Ab IgM <2.0 MPL-U/mL; Anti Nuclear Antibody Screen POSITIVE (NEGATIVE); Anti-Cardiolipin Ab IgA 8.5 APL-U/mL; Anti-Centromere Ab <1.0 NEG AI (<1.0 NEG); Anti-SS-A <1.0 NEG AI (<1.0 NEG); Anti-SS-B <1.0 NEG AI (<1.0 NEG); Chromatin Antibody <1.0 NEG AI (<1.0 NEG); Complement C3 201 mg/dL (83-193); Cyclic Citrullinated Pep IgG <16 UNITS; DNA ds Crithidia NEGATIVE (NEGATIVE); Microsomal Ab <1 IU/mL (<9); RNP Antibody <1.0 NEG AI (<1.0 NEG); Rheumatoid Factor 51 IU/mL (<14); Scleroderma Anti Scl-70 Ab <1.0 NEG AI (<1.0 NEG); Sm Antibody <1.0 NEG AI (<1.0 NEG)
== END 2023-01-21 16:26 | disposition home or self-care (01) | DRG 166 ==
LOC: ED 16:12 → 3N 19:37 → SUATTDRO 19:37 → 3N 21:28

== ENCOUNTER 2023-02-21 15:34 | Inpatient (IN) ==
--- NOTE | 2023-02-21 16:12 | Emergency Department Note ---
Impression & Plan Multifocal pneumonia, GOLDBERG (dyspnea on exertion), Anemia ED Provider Note NAME: LETTY DEXTER AGE: 72 SEX: F : 1950 ARRIVES VIA: Walk-In INFORMANT: Patient, ED PROVIDER(S): Kartik Miles MD CHIEF COMPLAINT: Shortness of breath MEDICAL DECISION MAKING: Patient presents due to concern for worsening shortness of breath. IV established blood obtained along with EKG troponin chest x-ray and BNP. Viral testing also obtained. The patient's blood work shows a normal white count chronic and stable anemia with a hemoglobin of 10 and normal platelet count. Kidney function is unremarkable. Magnesium 1.4. This is ordered for repleted. BNP of 406 with the patient's weight is down. Procalcitonin negative. Bio fire negative. The patient's chest x-ray does show multifocal airspace consolidations. Patient was ordered Zosyn and MRSA swab. Given the patient's worsening findings on chest x- ray with associated GOLDBERG I did speak with the on-call hospitalist service and the patient was admitted to the medicine service by Dr. Bueno. Prior /Outside records reviewed: I did review discharge summary from Dr. Marcos. The patient did present due to concern for pneumonia of the right lung at that time patient was on steroids Unasyn and azithromycin patient was started on oxygen supplementation at that time. Differential diagnosis: Reactive airway disease, pneumonia, pneumothorax, COPD, CHF, infections, cardiac ischemia, pulmonary embolism, musculoskeletal, gastrointestinal, as well as other pathologies. Diagnostics, as interpreted by me: ECG: Sinus, rate of 76, normal intervals, left axis deviation, PVCs noted. No obvious ST elevations. Cardiac monitoring: An order was placed for continuous cardiac monitoring. The monitor shows a rate of 88 with sinus rhythm. Patient was placed on pulse oximetry Medical decision rules: Curb 65 score Imaging studies: See below I informally reviewed the patient's chest x-ray which does show multifocal airspace opacities HPI: Patient presents due to concern for worsening shortness of breath. The patient was treated for pneumonia toward the end of December and was discharged in early January completing what she described as a 10-day course of antibiotics. P atient denies any chest pains but has had the shortness of breath. Patient has had cough that is nonproductive. No leg swelling the patient believes that she has had weight loss. No prior history of any heart or lung disease per patient. Patient was never a smoker. Patient states that since she was discharged she has had an oxygen requirement that she states that she cannot walk very far with out getting very short of breath. No significant orthopnea no abdominal pain nausea vomiting. The patient denies any blood in the urine or stools the patient [place] any dark stools. Patient has had some decreased appetite. PAST MEDICAL HISTORY: See Below PAST SURGICAL HISTORY: See Below SOCIAL HISTORY: See Below HOME MEDICATIONS: See Below ALLERGIES: See Below VITALS: See Below PHYSICAL EXAMINATION: GENERAL: NAD, wearing glasses, nasal cannula in place. Non-toxic. EYE EXAM: Normal conjunctiva. PERRL, no anisocoria and EOM's grossly intact w/o pain. NECK: Supple, no nuchal rigidity, no adenopathy, non-tender. No signs of meningismus. FROM of the neck with good chin to chest and neck extension. No stridor. LUNGS: Decreased breath sounds bilateral bases. Normal chest wall mechanics. HEART: NSR, no MRG. ABDOMEN: Abdomen soft, non-tender, no masses, no rebound or guarding. BACK: No CVA TTP. SKIN: No rashes and no bruising. UPPER EXTREMITIES: Upper extremities are grossly normal. LOWER EXTREMITIES: Grossly normal, no edema. Negative Homans' sign bilaterally. NEURO EXAM: A&O x3, cranial nerves II-XII grossly intact, normal speech, moves all 4 extremities. Past Med/Surg History Medical History Cellulitis Cellulitis Cystitis Depression Hypertension Hypothyroid T2DM (type 2 diabetes mellitus) Urge incontinence Social History Smoking Status: Never smoker Second Hand Exposure: No; Do You Dip or Chew Tobacco: No; Hx Alcohol Use: Yes Alcohol type: wine Hx Substance Use: No Preferred Language: Vincentian Communication Ability: Effective Flight Control Manager Required: No Beliefs That Will Affect Care: None Current Living Situation: Spouse Feels Safe at Home: Yes Safety Concerns: Feels Safe At This Time Assistive Devices: Denture - Upper, Glasses and Hearing Aid - Bilateral Allergies Allergies Allergy/AdvReac Type Severity Reaction Status Date / Time Beta-Blockers AdvReac Severe wipes me Verified 02/21/23 16:39 (Beta-Adrenergic Bloc out Home Meds Home Medications Medication Instructions Recorded Confirmed allopurinol 100 mg tablet 100 mg PO QAM 01/16/23 02/21/23 cyclobenzaprine 5 mg tablet 5 mg PO UD PRN Muscle Spasm 01/16/23 02/21/23 dulaglutide 1.5 mg/0.5 mL 1.5 mg subcut WK 01/16/23 02/21/23 subcutaneous pen injector (Trulicity) estradiol 1 mg tablet 1 mg PO QAM 01/16/23 02/21/23 fluoride (sodium) 1.1 % dental 1 applic dental [facility] 01/16/23 02/21/23 cream (Sodium Fluoride 5000 Plus) hydroxyzine HCl 25 mg tablet 25 mg PO Q8 PRN Anxiety 01/16/23 02/21/23 latanoprost 0.005 % eye drops 1 drp OPB QPM 01/16/23 02/21/23 levothyroxine 100 mcg tablet 100 mcg PO DAILYBB 01/16/23 02/21/23 metformin 500 mg tablet,extended 500 mg PO BIDM 01/16/23 02/21/23 release 24 hr mirabegron 50 mg tablet,extended 50 mg PO QAM 01/16/23 02/21/23 release 24 hr (Myrbetriq) pantoprazole 40 mg tablet,delayed 40 mg PO DAILYBB 01/16/23 02/21/23 release pramipexole 0.25 mg tablet 0.25 mg PO HS 01/16/23 02/21/23 pravastatin 40 mg tablet 40 mg PO HS 01/16/23 02/21/23 sertraline 50 mg tablet 50 mg PO QAM 01/16/23 02/21/23 solifenacin 5 mg tablet 5 mg PO QAM 01/16/23 02/21/23 venlafaxine 75 mg capsule,extended 75 mg PO QAM 01/16/23 02/21/23 release 24 hr venlafaxine 150 mg 150 mg PO QAM 02/21/23 02/21/23 capsule,extended release 24 hr Previous Rx's Medication Instructions Recorded olmesartan 20 mg tablet 20 mg PO DAILY #30 tabs 01/21/23 Results & Data (ED) Vital Signs Vital Signs - 24 hr 02/21/23 15:47 02/21/23 16:39 02/21/23 16:17 Temperature 36.6 C Temperature Source Temporal Artery Scan Pulse Rate 72 76 Pulse Rate from SpO2 Sensor Respiratory Rate 20 Respiratory Effort / Characteristics Short of Breath Respiratory Depth Normal Blood Pressure 133/67 Blood Pressure Mean 89 Blood Pressure Position Sitting Pulse Oximetry 93 Oxygen Delivery Method Nasal Cannula Room Air Oxygen Flow Rate 2 Sepsis Recent Fever Within 48 Hours No Sepsis New/Unexplained Change in Mental Status No Sepsis Action Taken by Nursing No Action Required 02/21/23 16:34 02/21/23 16:40 02/21/23 16:50 Temperature Temperature Source Pulse Rate 84 72 70 Pulse Rate from SpO2 Sensor 86 68 69 Respiratory Rate 22 24 30 H Respiratory Effort / Characteristics Respiratory Depth Blood Pressure Blood Pressure Mean Blood Pressure Position Pulse Oximetry 89 L 94 96 Oxygen Delivery Method Oxygen Flow Rate Sepsis Recent Fever Within 48 Hours Sepsis New/Unexplained Change in Mental Status Sepsis Action Taken by Nursing 02/21/23 17:00 02/21/23 17:10 02/21/23 17:20 Temperature Temperature Source Pulse Rate 76 75 75 Pulse Rate from SpO2 Sensor 73 71 68 Respiratory Rate 39 H 24 29 H Respiratory Effort / Characteristics Respiratory Depth Blood Pressure Blood Pressure Mean Blood Pressure Position Pulse Oximetry 94 94 95 Oxygen Delivery Method Oxygen Flow Rate Sepsis Recent Fever Within 48 Hours Sepsis New/Unexplained Change in Mental Status Sepsis Action Taken by Nursing 02/21/23 17:30 02/21/23 17:40 02/21/23 17:50 Temperature Temperature Source Pulse Rate 70 73 80 Pulse Rate from SpO2 Sensor 70 73 68 Respiratory Rate 36 H 32 H 31 H Respiratory Effort / Characteristics Respiratory Depth Blood Pressure Blood Pressure Mean Blood Pressure Position Pulse Oximetry 94 94 94 Oxygen Delivery Method Oxygen Flow Rate Sepsis Recent Fever Within 48 Hours Sepsis New/Unexplained Change in Mental Status Sepsis Action Taken by Nursing 02/21/23 18:00 02/21/23 18:10 02/21/23 18:20 Temperature Temperature Source Pulse Rate 71 75 64 Pulse Rate from SpO2 Sensor 65 65 63 Respiratory Rate 17 18 24 Respiratory Effort / Characteristics Respiratory Depth Blood Pressure Blood Pressure Mean Blood Pressure Position Pulse Oximetry 94 95 95 Oxygen Delivery Method Oxygen Flow Rate Sepsis Recent Fever Within 48 Hours Sepsis New/Unexplained Change in Mental Status Sepsis Action Taken by Nursing 02/21/23 18:30 Temperature Temperature Source Pulse Rate 73 Pulse Rate from SpO2 Sensor 71 Respiratory Rate 22 Respiratory Effort / Characteristics Respiratory Depth Blood Pressure Blood Pressure Mean Blood Pressure Position Pulse Oximetry 94 Oxygen Delivery Method Oxygen Flow Rate Sepsis Recent Fever Within 48 Hours Sepsis New/Unexplained Change in Mental Status Sepsis Action Taken by Correction Medications Current Medication List: was personally reviewed by me Laboratory Data Attestation: I reviewed the patient's lab results. 02/21/23 16:33 02/21/23 16:33 Lab Results 02/21/23 02/21/23 02/21/23 Range/Units 16:33 16:33 16:33 WBC 8.43 (4.8-10.8) K/ul RBC 3.68 L (4.20-5.40) M/uL Hgb 10.3 L (12.0-16.0) g/dl Hct 31.9 L (37.0-47.0) % MCV 86.7 (80.0-100.0) fL MCH 28.0 (25.0-34.0) pg MCHC 32.3 (32.0-36.0) g/dL RDW Std Deviation 48.9 H (36.4-46.3) fL RDW Coeff of Jason 15.5 H (11.5-14.5) % Plt Count 224 (130-400) K/uL MPV 10.8 (9.4-12.4) fL Immature Gran % (Auto) 0.5 % Neut % (Auto) 81.9 % Lymph % (Auto) 7.9 % Early % (Auto) 6.8 % Eos % (Auto) 2.5 % Baso % (Auto) 0.4 % Neut # (Auto) 6.91 H (1.40-6.50) K/uL Lymph # (Auto) 0.67 L (1.2-3.4) K/uL Early # (Auto) 0.57 (0.11-0.59) K/uL Eos # (Auto) 0.21 (0-0.50) K/uL Baso # (Auto) 0.03 (0-0.2) K/uL Immature Gran # (Auto) 0.04 (0.01-0.20) K/uL PT 11.3 (9.0-12.0) Seconds INR 1.0 (0.9-1.1) APTT 25.0 (21.0-31.0) Seconds PTT Ratio 0.9 Sodium 140 (136-145) mmol/L Potassium 4.3 (3.5-5.1) mmol/L Chloride 107 (98-107) mmol/L Carbon Dioxide 27 (21-32) mmol/L Anion Gap 6 (3-11) BUN 21 (6-23) mg/dl Creatinine 0.86 (0.6-1.2) mg/dl Est Cr Clr Drug Dosing 59.9 ml/min Est GFR ( Amer) 77.1 ml/min Est GFR (Non-Af Amer) 66.6 ml/min BUN/Creatinine Ratio 24.4 H (10-20) Glucose 132 H (70-99(Fasting)) mg/dl Calcium 10.2 (8.6-10.3) mg/dl Magnesium 1.4 L (1.7-2.4) mg/dl Total Bilirubin 0.6 (0.2-1.0) mg/dl AST 19 (13-39) U/L ALT 13 (7-52) U/L Alkaline Phosphatase 73 (34-104) U/L C-Reactive Protein 12.92 H (0-0.5) mg/dl B-Natriuretic Peptide (0-100) pg/ml Total Protein 6.8 (6.0-8.3) gm/dl Albumin 3.7 (3.4-5.0) gm/dl Globulin 3.1 (2.5-4.0) gm/dl Albumin/Globulin Ratio 1.2 (0.9-2) Procalcitonin (0-0.5) ng/ml Adenovirus (PCR) (NotDetected) B. pertussis DNA (PCR) (NotDetected) B.parapertussis DNA PCR (NotDetected) C. pneumoniae DNA (PCR) (NotDetected) Coronavirus OC43 (PCR) (NotDetected) Coronavirus HKU1 (PCR) (NotDetected) Coronavirus 229E (PCR) (NotDetected) SARS-CoV-2 (PCR) (NotDetected) Coronavirus NL63 (PCR) (NotDetected) Human Metapneumovir PCR (NotDetected) Influenza Type A (PCR) (NotDetected) Influenza Type B (PCR) (NotDetected) M. pneumoniae (PCR) (NotDetected) Parainfluenza 1 (PCR) (NotDetected) Parainfluenza 2 (PCR) (NotDetected) Parainfluenza 3 (PCR) (NotDetected) Parainfluenza 4 (PCR) (NotDetected) RSV (PCR) (NotDetected) Entero/Rhino (PCR) (NotDetected) 02/21/23 02/21/23 02/21/23 Range/Units 16:33 16:33 16:47 WBC (4.8-10.8) K/ul RBC (4.20-5.40) M/uL Hgb (12.0-16.0) g/dl Hct (37.0-47.0) % MCV (80.0-100.0) fL MCH (25.0-34.0) pg MCHC (32.0-36.0) g/dL RDW Std Deviation (36.4-46.3) fL RDW Coeff of Jason (11.5-14.5) % Plt Count (130-400) K/uL MPV (9.4-12.4) fL Immature Gran % (Auto) % Neut % (Auto) % Lymph % (Auto) % Early % (Auto) % Eos % (Auto) % Baso % (Auto) % Neut # (Auto) (1.40-6.50) K/uL Lymph # (Auto) (1.2-3.4) K/uL Early # (Auto) (0.11-0.59) K/uL Eos # (Auto) (0-0.50) K/uL Baso # (Auto) (0-0.2) K/uL Immature Gran # (Auto) (0.01-0.20) K/uL PT (9.0-12.0) Seconds INR (0.9-1.1) APTT (21.0-31.0) Seconds PTT Ratio Sodium (136-145) mmol/L Potassium (3.5-5.1) mmol/L Chloride (98-107) mmol/L Carbon Dioxide (21-32) mmol/L Anion Gap (3-11) BUN (6-23) mg/dl Creatinine (0.6-1.2) mg/dl Est Cr Clr Drug Dosing ml/min Est GFR ( Amer) ml/min Est GFR (Non-Af Amer) ml/min BUN/Creatinine Ratio (10-20) Glucose (70-99(Fasting)) mg/dl Calcium (8.6-10.3) mg/dl Magnesium (1.7-2.4) mg/dl Total Bilirubin (0.2-1.0) mg/dl AST (13-39) U/L ALT (7-52) U/L Alkaline Phosphatase (34-104) U/L C-Reactive Protein (0-0.5) mg/dl B-Natriuretic Peptide 406 H (0-100) pg/ml Total Protein (6.0-8.3) gm/dl Albumin (3.4-5.0) gm/dl Globulin (2.5-4.0) gm/dl Albumin/Globulin Ratio (0.9-2) Procalcitonin < 0.05 (0-0.5) ng/ml Adenovirus (PCR) Not Detected (NotDetected) B. pertussis DNA (PCR) Not Detected (NotDetected) B.parapertussis DNA PCR Not Detected (NotDetected) C. pneumoniae DNA (PCR) Not Detected (NotDetected) Coronavirus OC43 (PCR) Not Detected (NotDetected) Coronavirus HKU1 (PCR) Not Detected (NotDetected) Coronavirus 229E (PCR) Not Detected (NotDetected) SARS-CoV-2 (PCR) Not Detected (NotDetected) Coronavirus NL63 (PCR) Not Detected (NotDetected) Human Metapneumovir PCR Not Detected (NotDetected) Influenza Type A (PCR) Not Detected (NotDetected) Influenza Type B (PCR) Not Detected (NotDetected) M. pneumoniae (PCR) Not Detected (NotDetected) Parainfluenza 1 (PCR) Not Detected (NotDetected) Parainfluenza 2 (PCR) Not Detected (NotDetected) Parainfluenza 3 (PCR) Not Detected (NotDetected) Parainfluenza 4 (PCR) Not Detected (NotDetected) RSV (PCR) Not Detected (NotDetected) Entero/Rhino (PCR) Not Detected (NotDetected) Administered Medications Acetaminophen (Acetaminophen 325 Mg Tab) 650 mg PO Q4H PRN PRN Reason: Pain or fever Stop: 03/23/23 21:23 Last Admin: 02/21/23 22:03 Dose: 650 mg Documented By: STEPHEN Insulin Aspart (Insulin Aspart Per Unit Charge) 0 units SC ACHS [facility] Stop: 03/23/23 21:03 Last Admin: 02/21/23 22:47 Dose: 1 units Documented By: STEPHEN Co-signed By: NIKIA Latanoprost (Latanoprost 0.005% Op Soln 2.5 Ml Btl) 1 drops OPB QPM [facility] Stop: 03/23/23 21:03 Last Admin: 02/21/23 22:03 Dose: 1 drops Documented By: STEPHEN Miscellaneous (Dulaglutide [Trulicity] ~ Order Awaiting Action) 1 each N/A QS [facility] Stop: 03/24/23 00:00 Last Admin: 02/21/23 23:54 Dose: Not Given Documented By: STEPHEN Pramipexole Dihydrochloride (Pramipexole Dihydrochlo 0.25 Mg Tab) 0.25 mg PO [facility] Stop: 03/23/23 21:03 Last Admin: 02/21/23 22:04 Dose: 0.25 mg Documented By: STEHPEN Pravastatin Sodium (Pravastatin Sod 40 Mg Tab) 40 mg PO [facility] Stop: 03/23/23 21:03 Last Admin: 02/21/23 22:04 Dose: 40 mg Documented By: STEPHEN Discontinued Medications Albuterol (Albut/Ipratrop 3mg/0.5mg Neb 3 Ml Vial) 3 ml NEB NOW STA; Protocol Stop: 02/21/23 19:57 Last Admin: 02/21/23 20:19 Dose: 3 ml Documented By: RANDA Furosemide (Furosemide 40 Mg/4 Ml Vial) 40 mg IV ONE ONE Stop: 02/21/23 18:30 Last Admin: 02/21/23 18:46 Dose: 40 mg Documented By: SAMANTHA Piperacillin Sod/Tazobactam Sod (Zosyn) 4.5 gm in 120 mls @ 240 mls/hr IV NOW ONE Stop: 02/21/23 17:17 Last Infusion: 02/21/23 17:30 Dose: 0 mls/hr Documented By: Admin: 02/21/23 16:54 Dose: 240 mls/hr Documented By: SAMANTHA Magnesium Sulfate/Dextrose (Magnesium Sulfate / D5w) 1 gm in 100 mls @ 100 mls/hr IV Q1H JUAN Stop: 02/21/23 20:13 Last Infusion: 02/21/23 21:56 Dose: 0 mls/hr Documented By: Admin: 02/21/23 20:19 Dose: 100 mls/hr Documented By: [employer] INST[employer]ER Infusion: 02/21/23 19:47 Dose: 100 mls/hr Documented By: Admin: 02/21/23 18:47 Dose: 100 mls/hr Documented By: SAMANTHA Imaging Data Radiologist's Impression: Chest X-Ray 02/21/23 16:17 SINGLE VIEW CHEST CLINICAL HISTORY: Dyspnea. FINDINGS: An AP, portable, upright chest radiograph is compared to study dated 01/20/2023. Correlation is made with chest CT dated 01/16/2023. The heart is enlarged. There is multifocal airspace consolidation throughout both lungs, asymmetrically greater in the right lung. This has progressed as compared to 01/20/2023. No large pleural effusion or pneumothorax is seen. The skeletal structures are osteopenic. The bony thorax is grossly intact. IMPRESSION: 1. Multifocal airspace consolidation is again seen throughout both lungs, asymmetrically greater on the right. This is similar to but worsened as compared to 01/20/2023 and could represent pulmonary edema and/or an infectious/inflammatory pneumonitis. Clinical correlation will be required and radiographic follow-up to resolution is recommended. 2. Cardiomegaly. 3. No large pleural effusion is seen. ACT 112: Negative or not required by law. Electronically signed by: Epifanio Hugo M.D. 02/21/2023 4:38 PM Discharge Plan Visit Data Chief Complaint: Shortness of Breath/Dyspnea Stated Complaint: DIFFICULTY BREATHING ED Provider: Kartik Miles Discharge Problem: Multifocal pneumonia, GOLDBERG (dyspnea on exertion), Anemia Patient Disposition: Admitted As Inpatient Discharge Instructions Interventions: ED Discharge Assessment Last Done: 02/21/23 20:36
--- NOTE | 2023-02-21 16:40 | XRay Report ---
SINGLE VIEW CHEST CLINICAL HISTORY: Dyspnea. FINDINGS: An AP, portable, upright chest radiograph is compared to study dated 01/20/2023. Correlation is made with chest CT dated 01/16/2023. The heart is enlarged. There is multifocal airspace consolidat ion throughout both lungs, asymmetrically greater in the right lung. This has progressed as compared to 01/20/2023. No large pleural effusion or pneumothorax is seen. The skeletal structures are osteopeni c. The bony thorax is grossly intact. IMPRESSION: 1. Multifocal airspace consolidation is again seen throughout both lungs, asymmetrically greater on t he right. This is similar to but worsened as compared to 01/20/2023 and could represent pulmonary edema and/or an infectious/inflammatory pneumonitis. Clinical correlation will be required and radiographi c follow-up to resolution is recommended. 2. Cardiomegaly. 3. No large pleural effusion is seen. ACT 112: Negative or not required by law. Electronically signed by: Epifanio Hugo M.D. 02/21/2023 4:38 PM
[2023-02-21] MEDS ORDERED: PIPERACILLIN/TAZOBACTAM 4.5 GM/120 ML BAG IV ONE (16:48)
[2023-02-21 17:00] LABS: Basophils # (auto) 0.03 K/uL (0-0.2); Basophils % (auto) 0.4 %; Eosinophils # (auto) 0.21 K/uL (0-0.50); Eosinophils % (auto) 2.5 %; Hematocrit (blood only) 31.9 % (37.0-47.0); Hemoglobin 10.3 g/dl (12.0-16.0); Immature Granulocytes # (auto) 0.04 K/uL (0.01-0.20); Immature Granulocytes % (auto) 0.5 %; Lymphocytes # (auto) 0.67 K/uL (1.2-3.4); Lymphocytes % (auto) 7.9 %; Mean Corpuscular Hgb Conc 32.3 g/dL (32.0-36.0); Mean Corpuscular Volume 86.7 fL (80.0-100.0); Mean Platelet Volume 10.8 fL (9.4-12.4); Monocytes # (auto) 0.57 K/uL (0.11-0.59); Monocytes % (auto) 6.8 %; Neutrophils # (auto) 6.91 K/uL (1.40-6.50); Neutrophils % (auto) 81.9 %; Platelet Count 224 K/uL (130-400); RDW Coefficient of Variation 15.5 % (11.5-14.5); RDW Standard Deviation 48.9 fL (36.4-46.3); Red Blood Count 3.68 M/uL (4.20-5.40); White Blood Count 8.43 K/ul (4.8-10.8)
[2023-02-21 17:16] LABS: Albumin Globulin Ratio 1.2 (0.9-2); Albumin Level 3.7 gm/dl (3.4-5.0); BUN Creatinine Ratio 24.4 (10-20); Bilirubin,Total 0.6 mg/dl (0.2-1.0); Calcium 10.2 mg/dl (8.6-10.3); Creatinine Clr Calc Pharmacy 59.9 ml/min; Est GFR (African American) 77.1 ml/min; Est GFR (Non-African American) 66.6 ml/min; Globulin 3.1 gm/dl (2.5-4.0); Magnesium 1.4 mg/dl (1.7-2.4); Potassium 4.3 mmol/L (3.5-5.1); Total Protein 6.8 gm/dl (6.0-8.3)
[2023-02-21 17:30] LABS: Partial Thromboplastin Ratio 0.9; Prothrombin Time 11.3 Seconds (9.0-12.0)
[2023-02-21 17:52] LABS: Adenovirus PCR Not Detected (NotDetected); Bordetella parapertussis PCR Not Detected (NotDetected); Bordetella pertussis PCR Not Detected (NotDetected); Chlamydia pneumoniae PCR Not Detected (NotDetected); Coronavirus 229E PCR Not Detected (NotDetected); Coronavirus CoV-2 (COVID19)PCR Not Detected (NotDetected); Coronavirus HKU1 PCR Not Detected (NotDetected); Coronavirus NL63 PCR Not Detected (NotDetected); Coronavirus OC43PCR Not Detected (NotDetected); Human Metapneumovirus PCR Not Detected (NotDetected); Influenza A PCR Not Detected (NotDetected); Influenza B PCR Not Detected (NotDetected); Mycoplasma pneumoniae PCR Not Detected (NotDetected); Parainfluenza Virus 1 PCR Not Detected (NotDetected); Parainfluenza Virus 2 PCR Not Detected (NotDetected); Parainfluenza Virus 3 PCR Not Detected (NotDetected); Parainfluenza Virus 4 PCR Not Detected (NotDetected); Respiratory Syncytial VirusPCR Not Detected (NotDetected); Rhinovirus/Enterovirus PCR Not Detected (NotDetected)
[2023-02-21] MEDS ORDERED: FUROSEMIDE 40 MG/4 ML VIAL IV ONE (18:29)
--- NOTE | 2023-02-21 18:36 | History & Physical Report ---
Date of Service February 21, 2023 Assessment & Plan (1) NSIP (nonspecific interstitial pneumonitis): Plan: CRP 38 on last admission, now down to 12.92 but unknown what it was in between after she was on steroids. Clinically worsening off steroids. Rheumatoid factor elevated at 51, JESSICA screen positive 1:40, nuclear homogenous, subsequent antibodies including anti-dsDNA negative No eosinophilia to suggest drug reaction. See complete workup last admission in history above. 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 (2) Acute respiratory failure with hypoxia: Plan: Tachypnea with hypoxia Suspect secondary to NSIP as above however also made some improvement per hospitalist notes prior to steroids last admission therefore suspect Lasix made some difference. BNP elevated therefore given Lasix 40mg IV now, will continue 20mg PO daily (suspect some right sided heart failure due to NSIP as above. (3) Hypomagnesemia: Plan: Mg level 1.4. Mg sulfate 2g given, repeat with Am labs (4) T2DM (type 2 diabetes mellitus): Plan: HbA1C 6.0 Continue metformin and Trulicity Novolog for corection only unless needing regularly: --Goal BSG Range: Low 110 mg/dL, High 140 mg/dL --Correction Factor: 50 mg/dL/unit No carb ratio --BSGs ACHS if eating, q6h if npo (5) Hypothyroid: Plan: TSH 1.697. Continue levothyroxine. (6) Hypertension: Plan: Continue olmesartan (7) Abnormal CXR: Plan VTE Prophylaxis - Lovenox Diet - T2DM Disposition - admit to med/tele Admission and Anticipated Discharge Date Admission Date: February 21, 2023 History of Present Illness Chief Complaint: Shortness of breath Primary Care Provider: Ghassan Kahn DO Ketty Hernández is a 72 year old female who presents to the ER with shortness of breath. She was recently admission from January 16 - January 21 for pneumonia involving her right lung (see below for full breakdown of treatment). She reports improvement during that last admission but was not back to her baseline on discharge and was still requiring 2LPM O2 on exertion with O2 sats > 81% on room air on 2 step at discharge. She stayed home for the following week to rest. She had a problem getting enough portable oxygen to last her for a day at work so when working she didn't have oxygen. 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 This was up until the last week when she has been getting progressively more short of breath with minimal exertion such as going to the bathroom. Associated chest pain on exertion with her shortness of breath only. Associated wheezing. She was treated with Lasix last admission (see below) however she denies any orthopnea (in fact feels better lying down), paroxysmal nocturnal dyspnea, palpitations, claudication or leg swelling. No history of prior heart attacks or cardiovascular disease. She denies any autoimmune diseases however she has nieces with rheumatoid arthritics and lupus. She denies any other unexplained medical conditions, rashes or arthritis pains. She does note occasional mouth ulcers but these do not come in clusters. No dysphagia, odynophagia, coughing or choking after eating. She is a non-smoker, no vaping, no significant smoke or known chemical exposure. No travel out of [place] for the last 6 months. Workup/treatment last admission: Initially suspected community acquired pneumonia and treated with ceftriaxone 2g IV + doxycycline 100mg IV 01/16, switched to Unasyn 01/16 - 01/17 then discontinued (although mentioned in hospitalist note she was still taking review of last admission shows 01/17 was the last date she received it, suspect discontinued by pulmonology as did not suspect typical pneumonia). Extended course of azithromycin given inpatient from 01/16 - 02/17 with azithromycin 500mg QAM on discharge although only x3 250mg tablets given, this was subsequently extended Susana Roldan on 01/23 for 250mg PO daily for a futher 5 days. Lasix 40mg given on [01/17], 60mg total [01/19], 40mg [01/20] Solu-medrol 40mg BID started [01/19] and she was discharged on prednisone taper over 6 days (40mg for three days then 20mg for 3 days) CRP 38, not repeated last admission but down to 12.92 today. No measurements in between. Procalcitonin 0.08, repeat today < 0.05 Bronchoscopy performed [01/18] Microbiology with erick albicans / dubliniensis only BAL Coccidioides PCR negative BAL Histo/Blasto PCR negative BAL Legionnaire culture negative Pneumocystis jirovecii PCR negative BAL respiratory virus culture negative for influenza, RSV and adenovirus BAL Urine legionella negative Roderick cytometry - CD4/CD8 radio 5.04 Pathology with scattered macrophages, benign bronchial cells and neutrophils CXR improved on last date of admission [01/20] but no clear improvement prior to this. Appears worse today. Allergies Allergy/AdvReac Type Severity Reaction Status Date / Time Beta-Blockers AdvReac Severe wipes me Verified 02/21/23 16:39 (Beta-Adrenergic Bloc out Home Medications Medication Instructions Recorded Confirmed Type allopurinol 100 mg tablet 100 mg PO QAM 01/16/23 02/21/23 History cyclobenzaprine 5 mg tablet 5 mg PO UD PRN Muscle Spasm 01/16/23 02/21/23 History dulaglutide 1.5 mg/0.5 mL 1.5 mg subcut WK 01/16/23 02/21/23 History subcutaneous pen injector (Trulicity) estradiol 1 mg tablet 1 mg PO QA 01/16/23 02/21/23 History fluoride (sodium) 1.1 % dental 1 applic dental [facility] 01/16/23 02/21/23 History cream (Sodium Fluoride 5000 Plus) hydroxyzine HCl 25 mg tablet 25 mg PO Q8 PRN Anxiety 01/16/23 02/21/23 History latanoprost 0.005 % eye drops 1 drp OPB QPM 01/16/23 02/21/23 History levothyroxine 100 mcg tablet 100 mcg PO DAILYBB 01/16/23 02/21/23 History metformin 500 mg tablet,extended 500 mg PO BIDM 01/16/23 02/21/23 History release 24 hr mirabegron 50 mg tablet,extended 50 mg PO QA 01/16/23 02/21/23 History release 24 hr (Myrbetriq) pantoprazole 40 mg tablet,delayed 40 mg PO DAILYBB 01/16/23 02/21/23 History release pramipexole 0.25 mg tablet 0.25 mg PO HS 01/16/23 02/21/23 History pravastatin 40 mg tablet 40 mg PO HS 01/16/23 02/21/23 History sertraline 50 mg tablet 50 mg PO QA 01/16/23 02/21/23 History solifenacin 5 mg tablet 5 mg PO [facility] 01/16/23 02/21/23 History venlafaxine 75 mg capsule,extended 75 mg PO QAM 01/16/23 02/21/23 History release 24 hr olmesartan 20 mg tablet 20 mg PO DAILY #30 tabs 01/21/23 02/21/23 Rx venlafaxine 150 mg 150 mg PO QAM 02/21/23 02/21/23 History capsule,extended release 24 hr Past Med/Surg History Medical History Cellulitis Cellulitis Cystitis Depression Hypertension Hypothyroid T2DM (type 2 diabetes mellitus) Urge incontinence Social History Smoking Status: Never smoker Second Hand Exposure: No; Do You Dip or Chew Tobacco: No; Hx Alcohol Use: Yes Alcohol type: wine Hx Substance Use: No Preferred Language: Lithuanian Communication Ability: 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 Beliefs That Will Affect Care: None Current Living Situation: Spouse Feels Safe at Home: Yes Safety Concerns: Feels Safe At This Time Assistive Devices: Denture - Upper, Glasses and Hearing Aid - Bilateral Review of Systems Review of Systems: All systems reviewed & are unremarkable except as noted in HPI & below Physical Exam Constitutional: well developed and well nourished; no acute distress Eyes: PERRL, conjunctivae normal, anicteric sclerae ENMT: external ear and nose normal, oropharynx normal Neck: trachea midline, no thyromegaly Respiratory: normal respiratory effort; no respiratory distress Auscultation: + crackles (right > left posteriorly) and + wheezes (inspiratory and expiratory); breath sounds present, no diminished lung sounds, no rales and no rhonchi Cardiovascular: RRR, no murmur, no edema Gastrointestinal (Abdomen): normal bowel sounds, soft, nontender, no hepatosplenomegaly Musculoskeletal: no cyanosis or clubbing, extremities motor strength 5/5 Skin: no rashes, warm and dry Neurologic: moves all extremities and awake; not confused Psychiatric: A+Ox3, euthymic affect Genitourinary: no CVA tenderness Results & Data Results & Data Vital Signs (Past 12 Hours) Vital Signs Temp Pulse Resp BP Pulse Ox O2 Del Method O2 Flow Rate 02/21/23 16:17 Room Air 07/04/23 16:39 76 02/21/23 15:47 36.6 C 72 20 133/67 93 Nasal Cannula 2 Laboratory Results Abnormal lab results 02/21/23 02/21/23 02/21/23 Range/Units 16:33 16:33 16:33 RBC 3.68 L (4.20-5.40) M/uL Hgb 10.3 L (12.0-16.0) g/dl Hct 31.9 L (37.0-47.0) % RDW Std Deviation 48.9 H (36.4-46.3) fL RDW Coeff of Jason 15.5 H (11.5-14.5) % Neut # (Auto) 6.91 H (1.40-6.50) K/uL Lymph # (Auto) 0.67 L (1.2-3.4) K/uL BUN/Creatinine Ratio 24.4 H (10-20) Glucose 132 H (70-99(Fasting)) mg/dl Magnesium 1.4 L (1.7-2.4) mg/dl B-Natriuretic Peptide 406 H (0-100) pg/ml Diagnostic Findings SINGLE VIEW CHEST CLINICAL HISTORY: Dyspnea. FINDINGS: An AP, portable, upright chest radiograph is compared to study dated 01/20/2023. Correlation is made with chest CT dated 01/16/2023. The heart is enlarged. There is multifocal airspace consolidation throughout both lungs, asymmetrically greater in the right lung. This has progressed as compared to 01/20/2023. No large pleural effusion or pneumothorax is seen. The skeletal structures are osteopenic. The bony thorax is grossly intact. IMPRESSION: 1. Multifocal airspace consolidation is again seen throughout both lungs, asymmetrically greater on the right. This is similar to but worsened as compared to 01/20/2023 and could represent pulmonary edema and/or an infectious/inflammatory pneumonitis. Clinical correlation will be required and radiographic follow-up to resolution is recommended. 2. Cardiomegaly. 3. No large pleural effusion is seen. Medications Administered ER Medications Given: Zosyn 4.5g IV Magnesium sulfate 1g IV x2 ECG Rate (beats per minute): 76 Rhythm: normal sinus Findings: + PVC and + RBBB Comparison ECG Date: from (January 16, 2023) Change: the following changes noted (PVC now present) Code Status & VTE Plan Code Status Full VTE Prophylaxis Plan VTE Prophylaxis will be ordered: Yes PG Care Time/CCT Total # of Minutes Spent Total Time Spent: 85 Total Time Spent with Patient: Total time spent is greater than 50% in coordination of care (as documented) at patient's floor/unit and/or counseling patient: Coding Level of Care Code 40547 INT INP/OBS CARE 3/75MIN Diagnoses NSIP (nonspecific interstitial pneumonitis) J84.89 Acute respiratory failure with hypoxia J96.01 Hypomagnesemia E83.42 T2DM (type 2 diabetes mellitus) E11.9 Hypothyroid E03.9 Hypertension I10 Abnormal CXR R93.89
[2023-02-21] MEDS: MAGNESIUM SULFATE / D5W 1 GM/100 ML BAG IV SCH ×2 (18:47→20:19)
[2023-02-21] MEDS ORDERED: ALBUT/IPRATROP 3MG/0.5MG NEB 3 ML VIAL NEB STA (19:56)
[2023-02-21 20:27] LABS: C Reactive Protein 12.92 mg/dl (0-0.5)
[2023-02-21] MEDS ORDERED: DEXTROSE 50% 50 ML SYRINGE IV PRN (21:04)
[2023-02-21] MEDS ORDERED: GLUCOSE 40% GEL 15 GM TUBE PO PRN (21:04)
[2023-02-21] MEDS ORDERED: GLUCAGON FOR INJ 1 MG VIAL SQ PRN (21:04)
[2023-02-21] MEDS ORDERED: GLUCOSE 10 TAB/TUBE PO PRN (21:04)
[2023-02-21] MEDS ORDERED: CARBOHYDRATES FOR HYPOGLYCEMIA PO PRN (21:04)
[2023-02-21] MEDS ORDERED: hydrOXYzine HCl 25 MG TAB PO PRN (21:04)
[2023-02-21] MEDS: ACETAMINOPHEN 325 MG TAB PO PRN (22:03)
[2023-02-21] MEDS: LATANOPROST 0.005% OP SOLN 2.5 ML BTL OPB SCH (22:03)
[2023-02-21] MEDS: PRAVASTATIN SOD 40 MG TAB PO SCH (22:04)
[2023-02-21] MEDS ORDERED: ALBUT/IPRATROP 3MG/0.5MG NEB 3 ML VIAL NEB PRN (22:04)
[2023-02-21] MEDS: PRAMIPEXOLE DIHYDROCHLO 0.25 MG TAB PO SCH (22:04)
[2023-02-21] MEDS: INSULIN ASPART PER UNIT CHARGE SC SCH (22:47)
[2023-02-22] MEDS: ACETAMINOPHEN 325 MG TAB PO PRN ×2 (02:07→11:13)
[2023-02-22] MEDS: LEVOTHYROXINE SODIUM 100 MCG TABLET PO SCH (05:32)
[2023-02-22] MEDS: PANTOprazole 40 MG TAB PO SCH (05:32)
[2023-02-22 07:24] LABS: Basophils # (auto) 0.03 K/uL (0-0.2); Basophils % (auto) 0.4 %; Eosinophils # (auto) 0.47 K/uL (0-0.50); Hematocrit (blood only) 29.2 % (37.0-47.0); Hemoglobin 9.4 g/dl (12.0-16.0); Immature Granulocytes # (auto) 0.03 K/uL (0.01-0.20); Immature Granulocytes % (auto) 0.4 %; Lymphocytes # (auto) 1.14 K/uL (1.2-3.4); Mean Corpuscular Hemoglobin 27.9 pg (25.0-34.0); Mean Corpuscular Hgb Conc 32.2 g/dL (32.0-36.0); Mean Corpuscular Volume 86.6 fL (80.0-100.0); Mean Platelet Volume 10.5 fL (9.4-12.4); Monocytes # (auto) 0.67 K/uL (0.11-0.59); Neutrophils # (auto) 4.36 K/uL (1.40-6.50); Neutrophils % (auto) 65.2 %; Platelet Count 198 K/uL (130-400); RDW Coefficient of Variation 15.6 % (11.5-14.5); RDW Standard Deviation 49.3 fL (36.4-46.3); Red Blood Count 3.37 M/uL (4.20-5.40)
[2023-02-22 07:36] LABS: BUN Creatinine Ratio 19.1 (10-20); Calcium 9.8 mg/dl (8.6-10.3); Creatinine Clr Calc Pharmacy 44.3 ml/min; Est GFR (African American) 54.3 ml/min; Est GFR (Non-African American) 46.8 ml/min; Magnesium 1.9 mg/dl (1.7-2.4); Potassium 3.6 mmol/L (3.5-5.1)
[2023-02-22] MEDS: INSULIN ASPART PER UNIT CHARGE SC SCH ×4 (07:44→20:33)
[2023-02-22] MEDS: VENLAFAXINE HCL XR 75 MG CAPXR PO SCH (07:45)
[2023-02-22] MEDS: allopurinoL 100 MG TAB PO SCH (07:45)
[2023-02-22] MEDS: VENLAFAXINE HCL XR 150 MG CAPXR PO SCH (07:45)
[2023-02-22] MEDS: estradioL 1 MG TAB PO SCH (07:45)
[2023-02-22] MEDS: SERTRALINE HCL 50 MG TABLET PO SCH (07:45)
[2023-02-22] MEDS: metFORMIN HCL ER 500 MG TABCR PO SCH ×2 (07:45→17:07)
[2023-02-22] MEDS: oxyBUTYnin chloride 5 MG TAB PO SCH (07:45)
[2023-02-22] MEDS: LOSARTAN POTASSIUM 50 MG TAB PO SCH (07:45)
[2023-02-22] MEDS: VIBEGRON 75 MG TAB PO SCH (07:45)
--- NOTE | 2023-02-22 08:40 | Pulmonary Consultation ---
Date of Consultation February 22, 2023 Assessment & Plan (1) NSIP (nonspecific interstitial pneumonitis): (2) Pulmonary hypertension: (3) Abnormal CXR: (4) Obesity: (5) LISBETH (obstructive sleep apnea): (6) Acute on chronic respiratory failure with hypoxemia: Plan Chest x-ray 02/21/2023 personally reviewed: Bilateral dense alveolar opacities more on the right side. Seems to be worsened compared to x-ray from January 2023 CT chest 01/16/2023ersonally reviewed: Groundglass opacities appreciated bilateral upper lobes as well as the right lower lobe Minimal groundglass opacity in the left lower lobe as well Minimal mediastinal lymphadenopathy 2D echo 01/17/2023:EF 60-65%, grade 2 diastolic dysfunction, RVSP 40-50 mmHg, RV normal in size and function, mild MR -- Acute on chronic hypoxic respiratory failure Etiology is not clear BNP is elevated, patient's rheumatoid factor was also positive. Could be ca rdiac versus autoimmune in nature ESR 43, CRP 12.92, nasal MRSA negative BNP 406 Respiratory bio fire negative for everything Autoimmune work-up 01/18/2023: Positive for rheumatoid factor 51, anti-CCP negative, JESSICA positive 1:40, negative for Sjogren's, FLIGHT SURVEYOR, anticentromere antibodies S/p bronch 01/19/2023, no signs of diffuse alveolar hemorrhage. Bronc culture showing Shila which is a colonizer 20% lymphocytes on the BAL, CD4:CD8 ratio 5.04 Differential includes but not limited to infectious process, noninfectious process like NSIP, pulmonary alveolar proteinosis -- Pulmonary hypertension Type II likely from grade 2 diastolic dysfunction Possible pulmonary hypertension also playing a role -- LISBETH BiPAP nightly and as needed shortness of breath Patient was not able to tolerate CPAP in the past She does seem to have moderate to severe sleep apnea which was appreciated under conscious sedation during bronchoscopy Importance of CPAP/BiPAP expected the patient in depth Plan: Lasix 20 mg on a daily basis Start the patient on Solu-Medrol 40 mg on a daily basis We will do a CT chest after diuresis tomorrow to see if there is any improvement Please note the above document was generated using voice recognition software. It may contain grammatical, syntax or spelling errors.Any formal questions or concerns about the content, text or information contained within the body of this dictation should be directly addressed to the provider for clarification. History of Present Illness Attending Physician: Brad Marcos History of Present Illness 72-year-old female present to the hospital complaints of shortness of breath Past medical history: Hypothyroidism, anxiety/depression, type 2 diabetes, LISBETH n oncompliant with CPAP Pulmonary consulted for abnormal chest x-ray Patient was last seen by me January 2023 for similar complaints and she underwent bronchoscopy at that time At the time of examination patient was saturating 93% on 2 L nasal cannula Patient states that she never was back to normal since her last admission In the last couple of days she got more short of breath. Unfortunately she was not able to get an appointment with a primary doctor and she was not able to get a CPAP/BiPAP machine for the sleep apnea that she has Did complain of multiple bouts of loose stools which are chronic and related to her IBS. No hematochezia No dysuria, no hematuria. No fever or chills No nausea or vomiting No personal or family history of autoimmune disease like lupus, sarcoid, Sjogren's. There is family history of rheumatoid arthritis Denies any difficulty swallowing, no dry eyes, no dry mouth No morning joint stiffness Social history: Lifetime non-smoker, no alcohol. Denies any illicit drug use Has 3 dogs at home. No birds or poultry nearby No personal or family history of asthma No history of lung cancer in the family Allergies Allergy/AdvReac Type Severity Reaction Status Date / Time Beta-Blockers AdvReac Severe wipes me Verified 02/21/23 16:39 (Beta-Adrenergic Bloc out Home Medications Medication Instructions Recorded Confirmed Type allopurinol 100 mg tablet 100 mg PO QAM 01/16/23 02/21/23 History cyclobenzaprine 5 mg tablet 5 mg PO UD PRN Muscle Spasm 01/16/23 02/21/23 History dulaglutide 1.5 mg/0.5 mL 1.5 mg subcut WK 01/16/23 02/21/23 History subcutaneous pen injector (Trulicity) estradiol 1 mg tablet 1 mg PO QAM 01/16/23 02/21/23 History fluoride (sodium) 1.1 % dental 1 applic dental [facility] 01/16/23 02/21/23 History cream (Sodium Fluoride 5000 Plus) hydroxyzine HCl 25 mg tablet 25 mg PO Q8 PRN Anxiety 01/16/23 02/21/23 History latanoprost 0.005 % eye drops 1 drp OPB QPM 01/16/23 02/21/23 History levothyroxine 100 mcg tablet 100 mcg PO DAILYBB 01/16/23 02/21/23 History metformin 500 mg tablet,extended 500 mg PO BIDM 01/16/23 02/21/23 History release 24 hr mirabegron 50 mg tablet,extended 50 mg PO QAM 01/16/23 02/21/23 History release 24 hr (Myrbetriq) pantoprazole 40 mg tablet,delayed 40 mg PO DAILYBB 01/16/23 02/21/23 History release pramipexole 0.25 mg tablet 0.25 mg PO HS 01/16/23 02/21/23 History pravastatin 40 mg tablet 40 mg PO HS 01/16/23 02/21/23 History sertraline 50 mg tablet 50 mg PO QAM 01/16/23 02/21/23 History solifenacin 5 mg tablet 5 mg PO QAM 01/16/23 02/21/23 History venlafaxine 75 mg capsule,extended 75 mg PO QAM 01/16/23 02/21/23 History release 24 hr olmesartan 20 mg tablet 20 mg PO DAILY #30 tabs 01/21/23 02/21/23 Rx venlafaxine 150 mg 150 mg PO QAM 02/21/23 02/21/23 History capsule,extended release 24 hr Patient History Medical History Cellulitis Cellulitis Cystitis Depression Hypertension Hypothyroid T2DM (type 2 diabetes mellitus) Urge incontinence Social History Smoking Status: Never smoker Second Hand Exposure: No; Do You Dip or Chew Tobacco: No; Hx Alcohol Use: Yes Alcohol type: wine Hx Substance Use: No Preferred Language: Panamanian Communication Ability: 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: No Beliefs That Will Affect Care: None Current Living Situation: Spouse Feels Safe at Home: Yes Safety Concerns: Feels Safe At This Time Assistive Devices: Denture - Upper, Glasses, Hearing Aid - Bilateral and Oxygen - Continuous Review of Systems Review of Systems: All systems reviewed & are unremarkable except as noted in HPI & below Physical Exam Physical Exam: Constitutional: No acute distress HEENT: EOMI, PERRLA Respiratory system:Decreased air entry bilaterally, no wheeze, no rhonchi, positive crackles bilaterally, more on the right side CVS: S1-S2 positive, no murmurs or gallops Abdomen: Soft, nontender, nondistended, positive bowel sounds x4,obese Extremities: +2 pulses bilaterally radialis/ dorsalis pedis,no cyanosis, no edema Neuro: Awake alert oriented x3 Psych: Normal mood and affect G/U: No Oliveros Skin: no rashes, warm and dry Lymphatic: no cervical or axillary lymphadenopathy Results & Data Results & Data Vital Signs (Past 12 Hours) Vital Signs Temp Pulse Pulse Resp BP BP Pulse Ox 02/22/23 07:24 36.5 C 63 20 129/66 95 02/22/23 03:17 36.9 C 68 18 130/68 94 02/21/23 22:11 79 02/21/23 21:01 77 02/21/23 21:00 02/21/23 21:00 36.7 C 84 20 149/75 H 94 02/21/23 22:53 37.0 C 73 20 134/69 93 02/21/23 20:36 79 27 H 141/65 H 94 02/21/23 20:30 68 20 100 O2 Del Method O2 Flow Rate 02/22/23 07:24 Nasal Cannula 3 02/22/23 03:17 Nasal Cannula 2 02/21/23 22:11 02/21/23 21:01 02/21/23 21:00 Nasal Cannula 2 02/21/23 21:00 Nasal Cannula 2 02/21/23 22:53 Nasal Cannula 2 02/21/23 20:36 Room Air 02/21/23 20:30 Laboratory Results 02/22/23 06:34 02/22/23 06:34 PG Care Time/CCT Total # of Minutes Spent Total Time Spent with Patient: Total time spent is greater than 50% in coordination of care (as documented) at patient's floor/unit and/or counseling patient: Coding Level of Care Code 98013 INT INP/OBS CARE 3/75MIN Diagnoses NSIP (nonspecific interstitial pneumonitis) J84.89 Pulmonary hypertension I27.20 Abnormal CXR R93.89 Obesity E66.9 LISBETH (obstructive sleep apnea) G47.33 Acute on chronic respiratory failure with hypoxemia J96.21
[2023-02-22] MEDS ORDERED: FUROSEMIDE 40 MG/4 ML VIAL IV SCH (09:00)
[2023-02-22] MEDS ORDERED: FUROSEMIDE 20 MG TAB PO SCH (09:00)
[2023-02-22] MEDS: FUROSEMIDE INJ 20 MG/2 ML VIAL IV SCH (09:16)
[2023-02-22] MEDS: methylPREDNISolone 40 MG in SYRINGE 0 ML IV SCH (18:34)
[2023-02-22] MEDS: LATANOPROST 0.005% OP SOLN 2.5 ML BTL OPB SCH (20:33)
[2023-02-22] MEDS: PRAMIPEXOLE DIHYDROCHLO 0.25 MG TAB PO SCH (20:33)
[2023-02-22] MEDS: PRAVASTATIN SOD 40 MG TAB PO SCH (20:34)
--- NOTE | 2023-02-22 22:27 | Hospitalist Progress Note ---
Date of Service February 22, 2023 Assessment & Plan (1) NSIP (nonspecific interstitial pneumonitis): Plan: CRP 38 on last admission, now down to 12.92 but unknown what it was in between after she was on steroids. Clinically worsening off steroids. Rheumatoid factor elevated at 51, JESSICA screen positive 1:40, nuclear homogenous, subsequent antibodies including anti-dsDNA negative No eosinophilia to suggest drug reaction. See complete workup last admission in history above. 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 Appreciate inpu from pulmonary. Plan to diurese and order ct scan of chest in AM. (2) Acute respiratory failure with hypoxia: Plan: Tachypnea with hypoxia Suspect secondary to NSIP as above however also made some improvement per hospitalist notes prior to steroids last admission therefore suspect Lasix made some difference. BNP elevated therefore given Lasix 40mg IV now, will continue 20mg PO daily (suspect some right sided heart failure due to NSIP as above. (3) Hypomagnesemia: Plan: Mg level 1.4. Mg sulfate 2g given, replenished. (4) T2DM (type 2 diabetes mellitus): Plan: HbA1C 6.0 Continue metformin and Trulicity Novolog for corection only unless needing regularly: --Goal BSG Range: Low 110 mg/dL, High 140 mg/dL --Correction Factor: 50 mg/dL/unit No carb ratio --BSGs ACHS if eating, q6h if npo (5) Hypothyroid: Plan: TSH 1.697. Continue levothyroxine. (6) Hypertension: Plan: Continue olmesartan (7) Abnormal CXR: Plan VTE Prophylaxis - Lovenox Diet - T2DM Disposition - admit to med/tele Admission and Anticipated Discharge Date Admission Date: February 21, 2023 Subjective Patient reports no improvement from day of admission. Review of Systems Review of Systems: All systems reviewed & are unremarkable except as noted in HPI & below Physical Exam Physical Exam: Constitutional: well developed and well nourished; no acute distress Neck: trachea midline, no thyromegaly Respiratory: normal respiratory effort; no respiratory distress bilateral wheezing Cardiovascular: RRR, no murmur, no edema Gastrointestinal (Abdomen): normal bowel sounds, soft, nontender, no hepatosplenomegaly Psychiatric: A+Ox3, euthymic affect Results & Data Results & Data Vital Signs (Past 12 Hours) Vital Signs Temp Pulse Pulse Resp BP Pulse Ox O2 Del Method 02/22/23 21:07 77 18 92 Nasal Cannula 02/22/23 19:21 36.4 C L 70 18 149/85 H 93 Nasal Cannula 02/22/23 16:25 Nasal Cannula 02/22/23 15:36 66 02/22/23 15:19 37.1 C 75 18 144/70 H 91 Nasal Cannula 02/22/23 11:21 36.7 C 65 20 146/79 H 93 Nasal Cannula O2 Flow Rate 02/22/23 21:07 2 02/22/23 19:21 2 02/22/23 16:25 2 02/22/23 15:36 02/22/23 15:19 2 02/22/23 11:21 2.5 PG Care Time/CCT Total # of Minutes Spent Total Time Spent with Patient: Total time spent is greater than 50% in coordination of care (as documented) at patient's floor/unit and/or counseling patient: Coding Level of Care Code 72217 SUB INP/OBS CARE 2/35MIN Diagnoses NSIP (nonspecific interstitial pneumonitis) J84.89 Acute respiratory failure with hypoxia J96.01 Hypomagnesemia E83.42 T2DM (type 2 diabetes mellitus) E11.9 Hypothyroid E03.9 Hypertension I10 Abnormal CXR R93.89
[2023-02-23] MEDS: PANTOprazole 40 MG TAB PO SCH (05:52)
[2023-02-23] MEDS: LEVOTHYROXINE SODIUM 100 MCG TABLET PO SCH (05:52)
--- NOTE | 2023-02-23 07:34 | Pulmonology Progress Note ---
Date of Service February 23, 2023 Assessment & Plan (1) NSIP (nonspecific interstitial pneumonitis): (2) Pulmonary hypertension: (3) Abnormal CXR: (4) Obesity: (5) LISBETH (obstructive sleep apnea): (6) Acute on chronic respiratory failure with hypoxemia: Plan Chest x-ray 02/21/2023 personally reviewed: Bilateral dense alveolar opacities more on the right side. Seems to be worsened compared to x-ray from January 2023 CT chest 02/23/2023 personally reviewed: Patchy groundglass opacities again appreciated bilaterally more on the right side Small right sided pleural effusion Dilated main pulmonary artery at 3.5 cm No significant mediastinal lymphadenopathy The opacities on the right side interestingly seem to be improved compared to the last CAT scan done on 01/16/2023 2D echo 01/17/2023:EF 60-65%, grade 2 diastolic dysfunction, RVSP 40-50 mmHg, RV normal in size and function, mild MR -- Acute on chronic hypoxic respiratory failure Etiology is not clear I think it is a combination of underlying autoimmune rheumatoid factor positive disease as well as diastolic dysfunction BNP is elevated, patient's rheumatoid factor was also positive. 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 Bronc culture showing Shila which is a colonizer 20% lymphocytes on the BAL, CD4:CD8 ratio 5.04 Differential includes but not limited to infectious process, noninfectious process like NSIP, pulmonary alveolar proteinosis -- Pulmonary hypertension Type II likely from grade 2 diastolic dysfunction Possible pulmonary hypertension also playing a role -- LISBETH BiPAP nightly and as needed shortness of breath Patient was not able to tolerate CPAP in the past She does seem to have moderate to severe sleep apnea which was appreciated under conscious sedation during bronchoscopy Importance of CPAP/BiPAP expected the patient in depth Plan: There is improvement in the CAT scan compared to the one done 01/16/2023. There is still persistent opacities I think there is mixed picture here; diastolic CHF is playing a role along with pulmonary hypertension from underlying LISBETH/OHS Given the positive rheumatoid factor, autoimmune process is also playing a part. I think the next best step for the patient would be to continue with diuresis and steroids. She will need a VATS biopsy in future Recommend tapering prednisone over the next 3-[address] chest in 6-8 weeks Case discussed with Dr. Foley Please note the above document was generated using voice recognition software. It may contain grammatical, syntax or spelling errors.Any formal questions or concerns about the content, text or information contained within the body of this dictation should be directly addressed to the provider for clarification. Admission and Anticipated Discharge Date Admission Date: February 21, 2023 Subjective Patient seen and examined at bedside. No acute distress, no adverse events overnight Patient was saturating 94% on 2 L nasal cannula. She says that she is feeling the same. She gets severely short of breath on minimal exertion As per the patient she desaturated in this high 70s while she was sitting on the commode. Denies any dizziness, no chest pain Fair appetite Was asking if she can be transferred to [facility] Review of Systems Review of Systems: All systems reviewed & are unremarkable except as noted in Subjective Physical Exam Physical Exam: Constitutional: No acute distress HEENT: EOMI, PERRLA Respiratory system:Decreased air entry bilaterally, no wheeze, no rhonchi, positive crackles bilaterally, more on the right side CVS: S1-S2 positive, no murmurs or gallops Abdomen: Soft, nontender, nondistended, positive bowel sounds x4,obese Extremities: +2 pulses bilaterally radialis/ dorsalis pedis,no cyanosis, no edema Neuro: Awake alert oriented x3 Psych: Normal mood and affect G/U: No Oliveros Skin: no rashes, warm and dry Lymphatic: no cervical or axillary lymphadenopathy Results & Data Results & Data Vital Signs (Past 12 Hours) Vital Signs Temp Pulse Pulse Resp BP BP Pulse Ox 02/23/23 03:27 22 02/23/23 02:33 36.5 C 73 18 116/68 94 02/22/23 22:47 79 02/22/23 23:30 72 33 H 91 02/22/23 20:00 02/22/23 22:35 36.7 C 76 18 148/71 H 93 02/22/23 21:07 77 18 92 O2 Del Method O2 Flow Rate 02/23/23 03:27 3 02/23/23 02:33 CPAP 02/22/23 22:47 02/22/23 23:30 3 02/22/23 20:00 Nasal Cannula 2 02/22/23 22:35 Nasal Cannula 2 02/22/23 21:07 Nasal Cannula 2 Laboratory Results 02/22/23 06:34 02/22/23 06:34 PG Care Time/CCT Total # of Minutes Spent Total Time Spent with Patient: Total time spent is greater than 50% in coordination of care (as documented) at patient's floor/unit and/or counseling patient: Coding Level of Care Code 18209 SUB INP/OBS CARE 3/50MIN Diagnoses NSIP (nonspecific interstitial pneumonitis) J84.89 Pulmonary hypertension I27.20 Abnormal CXR R93.89 Obesity E66.9 LISBETH (obstructive sleep apnea) G47.33 Acute on chronic respiratory failure with hypoxemia J96.21
[2023-02-23] MEDS: INSULIN ASPART PER UNIT CHARGE SC SCH ×4 (08:11→20:25)
[2023-02-23] MEDS: VIBEGRON 75 MG TAB PO SCH (08:21)
[2023-02-23] MEDS: allopurinoL 100 MG TAB PO SCH (08:21)
[2023-02-23] MEDS: oxyBUTYnin chloride 5 MG TAB PO SCH (08:21)
[2023-02-23] MEDS: VENLAFAXINE HCL XR 75 MG CAPXR PO SCH (08:21)
[2023-02-23] MEDS: LOSARTAN POTASSIUM 50 MG TAB PO SCH (08:21)
[2023-02-23] MEDS: FUROSEMIDE INJ 20 MG/2 ML VIAL IV SCH (08:21)
[2023-02-23] MEDS: estradioL 1 MG TAB PO SCH (08:21)
[2023-02-23] MEDS: SERTRALINE HCL 50 MG TABLET PO SCH (08:21)
[2023-02-23] MEDS: metFORMIN HCL ER 500 MG TABCR PO SCH ×2 (08:22→17:18)
[2023-02-23] MEDS: VENLAFAXINE HCL XR 150 MG CAPXR PO SCH (08:22)
[2023-02-23] MEDS: ENOXAPARIN INJ 40 MG/0.4 ML SYR SQ SCH (08:23)
[2023-02-23] MEDS: methylPREDNISolone 40 MG in SYRINGE 0 ML IV SCH (08:23)
--- NOTE | 2023-02-23 08:42 | Hospitalist Progress Note ---
Date of Service February 23, 2023 Assessment & Plan (1) NSIP (nonspecific interstitial pneumonitis): Plan: CRP 38 on last admission, now down to 12.92 but unknown . Clinically worsening off steroids. Rheumatoid factor elevated at 51, JESSICA screen positive 1:40, nuclear homogenous, subsequent antibodies including anti-dsDNA negative No eosinophilia to suggest drug reaction. 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 No further antibiotics required. Consideration of referral for VATS Remains on methylprednisolone will likely transition to prednisone Plan to diurese repeat ct scan of chest 02/23/23 (2) Acute respiratory failure with hypoxia: Plan: Tachypnea with hypoxia Suspect secondary to NSIP as above however also made some improvement per hospitalist notes prior to steroids last admission therefore suspect Lasix made some difference. given Lasix 40mg and continue on 20mg PO daily (suspect some right sided heart failure/pulmonary hypertension) due to NSIP as above. (3) Hypomagnesemia: Plan: replete (4) T2DM (type 2 diabetes mellitus): Plan: HbA1C 6.0 Continue metformin and Trulicity Novolog for corection only unless needing regularly: --Goal BSG Range: Low 110 mg/dL, High 140 mg/dL --Correction Factor: 50 mg/dL/unit No carb ratio --BSGs ACHS if eating, q6h if npo (5) Hypothyroid: Plan: TSH 1.697. Continue levothyroxine. (6) Hypertension: Plan: Continue olmesartan (7) Abnormal CXR: Plan VTE Prophylaxis - Lovenox Diet - T2DM Disposition - admit to med/tele Admission and Anticipated Discharge Date Admission Date: February 21, 2023 Subjective pt is frustrated, she feels that she has not gotten better and that her home portable oxygen canister only lasts 30 minutes so she cannot travel she works without oxygen and gets short of breath Pt may benefit from formal diagnosis with VATS but will need to be referred to tertiary care center to accomplish Physical Exam Physical Exam: Patient awake and appropriate has coarse rales on her right lung about mcfp up and scant rales at the left base. She is not tachypneic or using accessory muscles Cardiac exam is regular extremities are without edema Results & Data Results & Data Vital Signs (Past 12 Hours) Vital Signs Temp Pulse Pulse Resp BP BP Pulse Ox 02/23/23 07:53 97.5 F L 36 L 16 144/78 H 77 L 02/23/23 03:27 22 02/23/23 02:33 97.7 F 73 18 116/68 94 02/22/23 22:47 79 02/22/23 23:30 72 33 H 91 02/22/23 22:35 98.1 F 76 18 148/71 H 93 02/22/23 21:07 77 18 92 O2 Del Method O2 Flow Rate 02/23/23 07:53 Nasal Cannula 02/23/23 03:27 3 02/23/23 02:33 CPAP 02/22/23 22:47 02/22/23 23:30 3 02/22/23 22:35 Nasal Cannula 2 02/22/23 21:07 Nasal Cannula 2 Laboratory Results Reviewed CBC Reviewed chemistry Persistently elevated CRP PG Care Time/CCT Total # of Minutes Spent Total Time Spent with Patient: Total time spent is greater than 50% in coordination of care (as documented) at patient's floor/unit and/or counseling patient: Coding Level of Care Code 17571 SUB INP/OBS CARE 2MIN Diagnoses NSIP (nonspecific interstitial pneumonitis) J84.89 Acute respiratory failure with hypoxia J96.01 Hypomagnesemia E83.42 T2DM (type 2 diabetes mellitus) E11.9 Hypothyroid E03.9 Hypertension I10 Abnormal CXR R93.89
[2023-02-23 09:03] LABS: Hematocrit (blood only) 33.3 % (37.0-47.0); Mean Corpuscular Hemoglobin 27.6 pg (25.0-34.0); Mean Corpuscular Volume 83.5 fL (80.0-100.0); Mean Platelet Volume 10.3 fL (9.4-12.4); Platelet Count 274 K/uL (130-400); RDW Coefficient of Variation 15.1 % (11.5-14.5); RDW Standard Deviation 46.1 fL (36.4-46.3); Red Blood Count 3.99 M/uL (4.20-5.40); White Blood Count 9.09 K/ul (4.8-10.8)
--- NOTE | 2023-02-23 09:14 | CT Scan Report ---
CT OF THE CHEST WITHOUT IV CONTRAST CLINICAL HISTORY: r/o infiltrate/ Edema COMPARISON STUDY: Chest CT January 16, 2023. Chest radiograph February 21, 2023. CT DOSE: 596.10 mGy.cm TECHNIQUE: Axial images of the chest were obtained without IV contrast. Images were reviewed in the axial, sagittal, and coronal planes. IV contrast was not administered for this examination. Automat ed exposure control was utilized for the study. A dose lowering technique was utilized adhering to t he principles of ALARA. FINDINGS: Mild cardiomegaly is noted. There is also dilatation of the central pulmonary arteries. Th e main pulmonary artery measures 3.5 cm in diameter. Mildly enlarged mediastinal lymph nodes have dec reased in size since CT of January 16, 2023. There is no pneumothorax. A trace right pleural effusion is noted. Multifocal airspace opacities within the lungs are noted. These are greater within the right l ed. Similar pattern was shown on CT of January 16, 2023. Right lung opacities have slightly decreased si nce that examination. There is also mild interlobular septal thickening. Central airways are patent. There is no cavitation. Visualized portions of the upper abdomen are unremarkable. Peripherally calci fied densities within the chest wall/left breast remain unchanged. These may be postsurgical or traum atic. A small hiatal hernia is present. IMPRESSION: 1. Asymmetric airspace opacities, greater within the right lung. Right lung opacities mildly decrease d since CT of January 16, 2023. The findings favor an infectious process with multifocal pneumonia. Asymm etric pulmonary edema could appear similar. 2. Trace right pleural effusion. 3. Cardiomegaly. Mild dilatation of the central pulmonary arteries which raises the possibility of pu lmonary arterial hypertension. ACT 112: Negative or not required by law. Electronically signed by: Dwaine To M.D. 02/23/2023 9:12 AM
[2023-02-23 09:22] LABS: BUN Creatinine Ratio 24.2 (10-20); C Reactive Protein 17.88 mg/dl (0-0.5); Calcium 10.3 mg/dl (8.6-10.3); Creatinine Clr Calc Pharmacy 51.6 ml/min; Est GFR (African American) 65.1 ml/min; Est GFR (Non-African American) 56.1 ml/min; Magnesium 1.7 mg/dl (1.7-2.4)
[2023-02-23] MEDS: PRAMIPEXOLE DIHYDROCHLO 0.25 MG TAB PO SCH (20:44)
[2023-02-23] MEDS: PRAVASTATIN SOD 40 MG TAB PO SCH (20:44)
[2023-02-23] MEDS: LATANOPROST 0.005% OP SOLN 2.5 ML BTL OPB SCH (20:44)
[2023-02-24] MEDS: ACETAMINOPHEN 325 MG TAB PO PRN (02:00)
--- NOTE | 2023-02-24 05:40 | Electrocardiogram Report ---
Test Reason : Blood Pressure : / mmHG Vent. Rate : 076 BPM Atrial Rate : 076 BPM P-R Int : 152 ms QRS Dur : 120 ms QT Int : 412 ms P-R-T Axes : 068 -44 091 degrees QTc Int : 463 ms Sinus rhythm with occasional Premature ventricular complexes Left axis deviation Right bundle branch block Left ventricular hypertrophy with repolarization abnormality Abnormal ECG When compared with ECG of 16-JAN-2023 16:35, Premature ventricular complexes are now Present Confirmed by Yousuf Murphy ([id number]) on 02/24/2023 5:40:14 AM Referred By: REFERRED SELF Confirmed By:Yousuf Murphy
[2023-02-24] MEDS: LEVOTHYROXINE SODIUM 100 MCG TABLET PO SCH (05:43)
[2023-02-24] MEDS: PANTOprazole 40 MG TAB PO SCH (05:43)
[2023-02-24 07:27] LABS: BUN Creatinine Ratio 27.7 (10-20); Calcium 10.2 mg/dl (8.6-10.3); Creatinine Clr Calc Pharmacy 42.8 ml/min; Est GFR (African American) 52.1 ml/min; Est GFR (Non-African American) 44.9 ml/min; Magnesium 1.5 mg/dl (1.7-2.4); Potassium 3.7 mmol/L (3.5-5.1)
[2023-02-24] MEDS: INSULIN ASPART PER UNIT CHARGE SC SCH ×4 (07:46→20:34)
--- NOTE | 2023-02-24 07:57 | Pulmonology Progress Note ---
Date of Service February 24, 2023 Assessment & Plan (1) NSIP (nonspecific interstitial pneumonitis): (2) Pulmonary hypertension: (3) Abnormal CXR: (4) Obesity: (5) LISBETH (obstructive sleep apnea): (6) Acute on chronic respiratory failure with hypoxemia: Plan Chest x-ray 02/21/2023 personally reviewed: Bilateral dense alveolar opacities more on the right side. Seems to be worsened compared to x-ray from January 2023 CT chest 02/23/2023 personally reviewed: Patchy groundglass opacities again appreciated bilaterally more on the right side Small right sided pleural effusion Dilated main pulmonary artery at 3.5 cm No significant mediastinal lymphadenopathy The opacities on the right side interestingly seem to be improved compared to the last CAT scan done on 01/16/2023 2D echo 01/17/2023:EF 60-65%, grade 2 diastolic dysfunction, RVSP 40-50 mmHg, RV normal in size and function, mild MR -- Acute on chronic hypoxic respiratory failure Etiology is not clear I think it is a combination of underlying autoimmune rheumatoid factor positive disease as well as diastolic dysfunction BNP is elevated, patient's rheumatoid factor was also positive. 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 Bronc culture showing Shila which is a colonizer 20% lymphocytes on the BAL, CD4:CD8 ratio 5.04 There is improvement in the CAT scan compared to the one done 01/16/2023. There is still persistent opacities I think there is mixed picture here; diastolic CHF is playing a role along with pulmonary hypertension from underlying LISBETH/OHS Given the positive rheumatoid factor, autoimmune process is also playing a part. -- Pulmonary hypertension Type II likely from grade 2 diastolic dysfunction Possible pulmonary hypertension also playing a role -- LISBETH BiPAP nightly and as needed shortness of breath Patient was not able to tolerate CPAP in the past She does seem to have moderate to severe sleep apnea which was appreciated under conscious sedation during bronchoscopy Importance of CPAP/BiPAP expected the patient in depth Plan: I think the next best step for the patient would be to continue with diuresis and steroids. She will need a VATS biopsy in future Recommend tapering prednisone over the next 3-[address] chest in 6-8 weeks Case discussed with Dr. Foley Please note the above document was generated using voice recognition software. It may contain grammatical, syntax or spelling errors.Any formal questions or concerns about the content, text or information contained within the body of th is dictation should be directly addressed to the provider for clarification. Admission and Anticipated Discharge Date Admission Date: February 21, 2023 Subjective Patient seen and examined at bedside. No acute distress, no adverse events overnight She was saturating 94% on 2 L nasal cannula. She stated that she is doing well when she is resting but on minimal exertion she does get short of breath Did use BiPAP overnight. No nausea vomiting Not bringing up any phlegm Review of Systems Review of Systems: All systems reviewed & are unremarkable except as noted in Subjective Physical Exam Physical Exam: Constitutional: No acute distress HEENT: EOMI, PERRLA Respiratory system:Decreased air entry bilaterally, no wheeze, no rhonchi, positive crackles bilaterally, more on the right side CVS: S1-S2 positive, no murmurs or gallops Abdomen: Soft, nontender, nondistended, positive bowel sounds x4,obese Extremities: +2 pulses bilaterally radialis/ dorsalis pedis,no cyanosis, no edema Neuro: Awake alert oriented x3 Psych: Normal mood and affect G/U: No Oliveros Skin: no rashes, warm and dry Lymphatic: no cervical or axillary lymphadenopathy Results & Data Results & Data Vital Signs (Past 12 Hours) Vital Signs Temp Pulse Pulse Resp BP BP Pulse Ox 02/24/23 07:00 36.4 C L 67 18 123/66 94 02/24/23 04:00 36.5 C 73 18 145/60 H 92 02/24/23 02:39 28 H 02/24/23 01:04 76 02/23/23 23:53 36.6 C 61 18 139/68 95 02/23/23 23:05 78 26 H 93 02/23/23 22:45 O2 Del Method O2 Flow Rate 02/24/23 07:00 BiPAP 02/24/23 04:00 CPAP 02/24/23 02:39 3 02/24/23 01:04 02/23/23 23:53 Nasal Cannula 1 02/23/23 23:05 3 02/23/23 22:45 Nasal Cannula 1 Laboratory Results 02/23/23 08:43 02/24/23 06:32 PG Care Time/CCT Total # of Minutes Spent Total Time Spent with Patient: Total time spent is greater than 50% in coordination of care (as documented) at patient's floor/unit and/or counseling patient: Coding Level of Care Code 92599 SUB INP/OBS CARE 2/35MIN Diagnoses NSIP (nonspecific interstitial pneumonitis) J84.89 Pulmonary hypertension I27.20 Abnormal CXR R93.89 Obesity E66.9 LISBETH (obstructive sleep apnea) G47.33 Acute on chronic respiratory failure with hypoxemia J96.21
[2023-02-24] MEDS: oxyBUTYnin chloride 5 MG TAB PO SCH (08:05)
[2023-02-24] MEDS: FUROSEMIDE INJ 20 MG/2 ML VIAL IV SCH (08:05)
[2023-02-24] MEDS: allopurinoL 100 MG TAB PO SCH (08:05)
[2023-02-24] MEDS: VENLAFAXINE HCL XR 75 MG CAPXR PO SCH (08:05)
[2023-02-24] MEDS: metFORMIN HCL ER 500 MG TABCR PO SCH ×2 (08:06→17:03)
[2023-02-24] MEDS: LOSARTAN POTASSIUM 50 MG TAB PO SCH (08:06)
[2023-02-24] MEDS: SERTRALINE HCL 50 MG TABLET PO SCH (08:06)
[2023-02-24] MEDS: VIBEGRON 75 MG TAB PO SCH (08:06)
[2023-02-24] MEDS: VENLAFAXINE HCL XR 150 MG CAPXR PO SCH (08:06)
[2023-02-24] MEDS: estradioL 1 MG TAB PO SCH (08:06)
[2023-02-24] MEDS: methylPREDNISolone 40 MG in SYRINGE 0 ML IV SCH (08:06)
[2023-02-24] MEDS: ENOXAPARIN INJ 40 MG/0.4 ML SYR SQ SCH (08:07)
--- NOTE | 2023-02-24 19:59 | Hospitalist Progress Note ---
Date of Service February 24, 2023 Assessment & Plan (1) NSIP (nonspecific interstitial pneumonitis): Plan: CRP 38 on last admission, now down to 12.92 but unknown . Clinically worsening off steroids. Rheumatoid factor elevated at 51, JESSICA screen positive 1:40, nuclear homogenous, subsequent antibodies including anti-dsDNA negative No eosinophilia to suggest drug reaction. 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 No further antibiotics required. Consideration of referral for VATS Remains on methylprednisolone will likely transition to prednisone combined cardiopulmonary issues with this patient. Spoke to the patient about her VATS after speaking with [facility] likely will need outpatient referral patient is comfortable going to [facility] versus [facility] (2) Acute respiratory failure with hypoxia: Plan: Tachypnea with hypoxia Suspect secondary to NSIP as above however also made some improvement per hospitalist notes prior to steroids last admission therefore suspect Lasix made some difference. given Lasix 40mg and continue on 20mg PO daily (suspect some right sided heart failure/pulmonary hypertension) due to NSIP as above. (3) Hypomagnesemia: Plan: replete (4) T2DM (type 2 diabetes mellitus): Plan: HbA1C 6.0 Continue metformin and Trulicity Novolog for corection only unless needing regularly: --Goal BSG Range: Low 110 mg/dL, High 140 mg/dL --Correction Factor: 50 mg/dL/unit (5) Hypothyroid: Plan: TSH 1.697. Continue levothyroxine. (6) Hypertension: Plan: Continue olmesartan (7) Abnormal CXR: Plan VTE Prophylaxis - Lovenox Diet - T2DM Disposition - admit to med/tele Admission and Anticipated Discharge Date Admission Date: February 21, 2023 Subjective some slight subjective improvement still fairly dyspneic Physical Exam Physical Exam: Patient awake and appropriate has coarse rales on her right lung about [facility] up and scant rales at the left base. She is not tachypneic or using accessory muscles Cardiac exam is regular extremities are without edema Results & Data Results & Data Vital Signs (Past 12 Hours) Vital Signs Temp Pulse Pulse Resp BP Pulse Ox O2 Del Method 02/24/23 16:00 72 02/24/23 15:13 98.1 F 69 18 116/69 94 Nasal Cannula 02/24/23 11:30 98.1 F 81 18 137/67 98 Nasal Cannula 02/24/23 08:00 66 07/07/23 08:00 Nasal Cannula O2 Flow Rate 02/24/23 16:00 02/24/23 15:13 2 02/24/23 11:30 1 02/24/23 08:00 02/24/23 08:00 2 PG Care Time/CCT Total # of Minutes Spent Total Time Spent with Patient: Total time spent is greater than 50% in coordination of care (as documented) at patient's floor/unit and/or counseling patient: Coding Level of Care Code 62549 SUB INP/OBS CARE 2/35MIN Diagnoses NSIP (nonspecific interstitial pneumonitis) J84.89 Acute respiratory failure with hypoxia J96.01 Hypomagnesemia E83.42 T2DM (type 2 diabetes mellitus) E11.9 Hypothyroid E03.9 Hypertension I10 Abnormal CXR R93.89
[2023-02-24] MEDS: PRAMIPEXOLE DIHYDROCHLO 0.25 MG TAB PO SCH (20:34)
[2023-02-24] MEDS: LATANOPROST 0.005% OP SOLN 2.5 ML BTL OPB SCH (20:34)
[2023-02-24] MEDS: PRAVASTATIN SOD 40 MG TAB PO SCH (20:34)
[2023-02-25] MEDS: PANTOprazole 40 MG TAB PO SCH (05:52)
[2023-02-25] MEDS: LEVOTHYROXINE SODIUM 100 MCG TABLET PO SCH (05:52)
[2023-02-25 07:00] LABS: BUN Creatinine Ratio 29.5 (10-20); C Reactive Protein 9.11 mg/dl (0-0.5); Calcium 10.4 mg/dl (8.6-10.3); Creatinine Clr Calc Pharmacy 40.1 ml/min; Est GFR (African American) 47.2 ml/min; Est GFR (Non-African American) 40.8 ml/min; Magnesium 1.5 mg/dl (1.7-2.4); Potassium 3.7 mmol/L (3.5-5.1)
--- NOTE | 2023-02-25 07:40 | Pulmonology Progress Note ---
Date of Service February 25, 2023 Assessment & Plan (1) NSIP (nonspecific interstitial pneumonitis): (2) Pulmonary hypertension: (3) Abnormal CXR: (4) Obesity: (5) LISBETH (obstructive sleep apnea): (6) Acute on chronic respiratory failure with hypoxemia: Plan Chest x-ray 02/21/2023 personally reviewed: Bilateral dense alveolar opacities more on the right side. Seems to be worsened compared to x-ray from January 2023 CT chest 02/23/2023 personally reviewed: Patchy groundglass opacities again appreciated bilaterally more on the right side Small right sided pleural effusion Dilated main pulmonary artery at 3.5 cm No significant mediastinal lymphadenopathy The opacities on the right side interestingly seem to be improved compared to the last CAT scan done on 01/16/2023 2D echo 01/17/2023:EF 60-65%, grade 2 diastolic dysfunction, RVSP 40-50 mmHg, RV normal in size and function, mild MR -- Acute on chronic hypoxic respiratory failure Etiology is not clear I think it is a combination of underlying autoimmune rheumatoid factor positive disease as well as diastolic dysfunction BNP is elevated, patient's rheumatoid factor was also positive. 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 Bronc culture showing Shila which is a colonizer 20% lymphocytes on the BAL, CD4:CD8 ratio 5.04 There is improvement in the CAT scan compared to the one done 01/16/2023. There is still persistent opacities I think there is mixed picture here; diastolic CHF is playing a role along with pulmonary hypertension from underlying LISBETH/OHS Given the positive rheumatoid factor, autoimmune process is also playing a part. -- Pulmonary hypertension Type II likely from grade 2 diastolic dysfunction Possible pulmonary hypertension also playing a role -- LISBETH BiPAP nightly and as needed shortness of breath Patient was not able to tolerate CPAP in the past She does seem to have moderate to severe sleep apnea which was appreciated under conscious sedation during bronchoscopy Importance of CPAP/BiPAP expected the patient in depth Plan: Chest x-ray from today does show improvement compared to before, patchy alveolar opacities still persist bilaterally more on the right side I think the next best step for the patient would be to continue with diuresis and steroids. She will need a VATS biopsy in future Recommend prednisone 40 mg for 10 days followed by 30 mg for 10 days followed by 20 for 10 and then 10 mg till she sees a fishing tool technician oil well/CT surgeon Recommend Bactrim double strength [id number] while the patient is on prednisone Repeat CT chest in 6-8 weeks Case discussed with Dr. Foley Please note the above document was generated using voice recognition software. It may contain grammatical, syntax or spelling errors.Any formal questions or concerns about the content, text or information contained within the body of this dictation should be directly addressed to the provider for clarification. Admission and Anticipated Discharge Date Admission Date: February 21, 2023 Subjective Patient seen and examined at bedside. No acute distress, no adverse events overnight Overall she feels feeling better since she came to the hospital Has been urinating well Denies any headache, no nausea, no vomiting On exertion she does get short of breath Did use CPAP overnight and finds benefit from it Fair appetite Review of Systems Review of Systems: All systems reviewed & are unremarkable except as noted in Subjective Physical Exam Physical Exam: Constitutional: No acute distress HEENT: EOMI, PERRLA Respiratory system:Decreased air entry bilaterally, no wheeze, no rhonchi, positive crackles bilaterally, more on the right side CVS: S1-S2 positive, no murmurs or gallops Abdomen: Soft, nontender, nondistended, positive bowel sounds x4,obese Extremities: +2 pulses bilaterally radialis/ dorsalis pedis,no cyanosis, no edema Neuro: Awake alert oriented x3 Psych: Normal mood and affect G/U: No Oliveros Skin: no rashes, warm and dry Lymphatic: no cervical or axillary lymphadenopathy Results & Data Results & Data Vital Signs (Past 12 Hours) Vital Signs Temp Pulse Pulse Resp BP Pulse Ox O2 Del Method 02/25/23 03:30 36.4 C L 68 18 131/71 93 BiPAP 02/25/23 01:48 84 23 96 02/24/23 23:12 63 02/24/23 23:07 57 L 26 H 94 02/24/23 22:45 36.6 C 70 18 131/76 95 Nasal Cannula 02/24/23 21:42 Nasal Cannula 02/24/23 20:54 36.7 C 72 18 139/70 96 Nasal Cannula O2 Flow Rate 02/25/23 03:30 02/25/23 01:48 4 02/24/23 23:12 02/24/23 23:07 2 02/24/23 22:45 2 02/24/23 21:42 1 02/24/23 20:54 2 Laboratory Results 02/23/23 08:43 02/25/23 06:01 PG Care Time/CCT Total # of Minutes Spent Total Time Spent with Patient: Total time spent is greater than 50% in coordination of care (as documented) at patient's floor/unit and/or counseling patient: Coding Level of Care Code 79235 SUB INP/OBS CARE 2/35MIN Diagnoses NSIP (nonspecific interstitial pneumonitis) J84.89 Pulmonary hypertension I27.20 Abnormal CXR R93.89 Obesity E66.9 LISBETH (obstructive sleep apnea) G47.33 Acute on chronic respiratory failure with hypoxemia J96.21
[2023-02-25] MEDS: INSULIN ASPART PER UNIT CHARGE SC SCH ×4 (07:48→20:50)
--- NOTE | 2023-02-25 07:49 | XRay Report ---
XR chest 1V portable HISTORY: 72 years-old Female f/u acute shortness of breath COMPARISON: 02/23/2023 TECHNIQUE: AP view of the chest FINDINGS: Cardiac silhouette is enlarged. No pneumothorax. Unchanged small right pleural effusion. Right greate r than left airspace opacities are again noted with mildly improved aeration of the right lung. Bones appear grossly intact. IMPRESSION: 1. Right greater than left patchy airspace opacities are again noted suggestive of an infectious or i nflammatory pneumonitis, mildly improved from prior. 2. Small right pleural effusion. 3. Cardiomegaly. ACT 112: Negative or not required by law. The above report was generated using voice recognition software. It may contain grammatical, syntax o r spelling errors. Electronically signed by: Pool Ashby M.D. 02/25/2023 7:48 AM
[2023-02-25] MEDS: LOSARTAN POTASSIUM 50 MG TAB PO SCH (08:34)
[2023-02-25] MEDS: VIBEGRON 75 MG TAB PO SCH (08:34)
[2023-02-25] MEDS: allopurinoL 100 MG TAB PO SCH (08:34)
[2023-02-25] MEDS: oxyBUTYnin chloride 5 MG TAB PO SCH (08:34)
[2023-02-25] MEDS: estradioL 1 MG TAB PO SCH (08:34)
[2023-02-25] MEDS: VENLAFAXINE HCL XR 75 MG CAPXR PO SCH (08:34)
[2023-02-25] MEDS: predniSONE 20 MG TAB PO SCH (08:34)
[2023-02-25] MEDS: metFORMIN HCL ER 500 MG TABCR PO SCH ×2 (08:35→16:59)
[2023-02-25] MEDS: VENLAFAXINE HCL XR 150 MG CAPXR PO SCH (08:35)
[2023-02-25] MEDS: SERTRALINE HCL 50 MG TABLET PO SCH (08:35)
[2023-02-25] MEDS: ENOXAPARIN INJ 40 MG/0.4 ML SYR SQ SCH (08:35)
[2023-02-25] MEDS: FUROSEMIDE 40 MG TAB PO SCH (08:36)
[2023-02-25] MEDS ORDERED: FUROSEMIDE 20 MG TAB PO SCH (09:00)
[2023-02-25] MEDS ORDERED: DOCUSATE SODIUM/SENNA 50/8.6MG TAB PO ONE (17:06)
--- NOTE | 2023-02-25 18:21 | Hospitalist Progress Note ---
Date of Service February 25, 2023 Assessment & Plan (1) NSIP (nonspecific interstitial pneumonitis): Plan: CRP 38 on last admission, now down to 12.92 but unknown . Clinically worsening off steroids. Rheumatoid factor elevated at 51, JESSICA screen positive 1:40, nuclear homogenous, subsequent antibodies including anti-dsDNA negative No eosinophilia to suggest drug reaction. 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 No further antibiotics required. Consideration of referral for VATS Remains on methylprednisolone will likely transition to prednisone combined cardiopulmonary issues with this patient. Spoke to the patient about her VATS after speaking with [facility] likely will need outpatient referral patient is comfortable going to [place] Patient will need to have a two-step oxygen test prior to going home as she currently does not have an oxygen conserving device and she will need this as she typically has exertion throughout the day that causes her typical portable oxygen device to . As mentioned in the above we will have a nocturnal oximetry test on 2 L of oxygen not using CPAP in the evening (2) Acute respiratory failure with hypoxia: Plan: Tachypnea with hypoxia Suspect secondary to NSIP as above however also made some improvement per hospitalist notes prior to steroids last admission therefore suspect Lasix made some difference. given Lasix 40mg and continue on 20mg PO daily (suspect some right sided heart failure/pulmonary hypertension) due to NSIP as above. (3) Hypomagnesemia: Plan: replete (4) T2DM (type 2 diabetes mellitus): Plan: HbA1C 6.0 Continue metformin and Trulicity Novolog for corection only unless needing regularly: --Goal BSG Range: Low 110 mg/dL, High 140 mg/dL --Correction Factor: 50 mg/dL/unit (5) Hypothyroid: Plan: TSH 1.697. Continue levothyroxine. (6) Hypertension: Plan: Continue olmesartan (7) Abnormal CXR: Plan VTE Prophylaxis - Lovenox Diet - T2DM Disposition - admit to med/tele Admission and Anticipated Discharge Date Admission Date: February 21, 2023 Subjective Patient seen and examined at bedside. No acute distress, no adverse events overnight patient was confused as was trying to understand her how to get home CPAP and we explained to her that it is almost impossible to do off of an inpatient stay and that she will need outpatient evaluation with sleep study. Likewise recommendations for rehab by pulmonary medicine could not be met as patient does not qualify with her previous PT OT evaluations. Subsequently will have her on nasal cannula oxygen overnight with an oxygen oximetry test to determine her fitness to return home just on nasal cannula oxygen. Physical Exam Physical Exam: Patient awake and appropriate has coarse rales on her right lung about nursing home u p and scant rales at the left base. She is not tachypneic or using accessory muscles Cardiac exam is regular extremities are without edema Results & Data Results & Data Vital Signs (Past 12 Hours) Vital Signs Temp Pulse Pulse Resp BP Pulse Ox O2 Del Method 02/25/23 16:00 71 02/25/23 15:21 97.9 F 68 20 120/72 95 Room Air 02/25/23 11:03 97.7 F 71 20 128/71 92 Nasal Cannula 02/25/23 08:00 62 02/25/23 07:21 97.7 F 70 17 143/82 H 92 Nasal Cannula O2 Flow Rate 02/25/23 16:00 02/25/23 15:21 02/25/23 11:03 3 02/25/23 08:00 02/25/23 07:21 3 Laboratory Results reviewed chemistry reviewed CRP PG Care Time/CCT Total # of Minutes Spent Total Time Spent with Patient: Total time spent is greater than 50% in coordination of care (as documented) at patient's floor/unit and/or counseling patient: Coding Level of Care Code 69460 SUB INP/OBS CARE 2/35MIN Diagnoses NSIP (nonspecific interstitial pneumonitis) J84.89 Acute respiratory failure with hypoxia J96.01 Hypomagnesemia E83.42 T2DM (type 2 diabetes mellitus) E11.9 Hypothyroid E03.9 Hypertension I10 Abnormal CXR R93.89
[2023-02-25] MEDS: PRAMIPEXOLE DIHYDROCHLO 0.25 MG TAB PO SCH (21:01)
[2023-02-25] MEDS: PRAVASTATIN SOD 40 MG TAB PO SCH (21:01)
[2023-02-25] MEDS: LATANOPROST 0.005% OP SOLN 2.5 ML BTL OPB SCH (21:01)
[2023-02-26] MEDS: PANTOprazole 40 MG TAB PO SCH (06:05)
[2023-02-26] MEDS: LEVOTHYROXINE SODIUM 100 MCG TABLET PO SCH (06:05)
[2023-02-26] MEDS: LOSARTAN POTASSIUM 50 MG TAB PO SCH (07:19)
[2023-02-26] MEDS: oxyBUTYnin chloride 5 MG TAB PO SCH (07:20)
[2023-02-26] MEDS: FUROSEMIDE 40 MG TAB PO SCH (07:20)
[2023-02-26] MEDS: VENLAFAXINE HCL XR 150 MG CAPXR PO SCH (07:21)
[2023-02-26] MEDS: SERTRALINE HCL 50 MG TABLET PO SCH (07:21)
[2023-02-26] MEDS: ENOXAPARIN INJ 40 MG/0.4 ML SYR SQ SCH (07:24)
--- NOTE | 2023-02-26 07:24 | Pulmonology Progress Note ---
Date of Service February 26, 2023 Assessment & Plan (1) NSIP (nonspecific interstitial pneumonitis): (2) Pulmonary hypertension: (3) Abnormal CXR: (4) Obesity: (5) LISBETH (obstructive sleep apnea): (6) Acute on chronic respiratory failure with hypoxemia: Plan Chest x-ray 02/21/2023 personally reviewed: Bilateral dense alveolar opacities more on the right side. Seems to be worsened compared to x-ray from January 2023 CT chest 02/23/2023 personally reviewed: Patchy groundglass opacities again appreciated bilaterally more on the right side Small right sided pleural effusion Dilated main pulmonary artery at 3.5 cm No significant mediastinal lymphadenopathy The opacities on the right side interestingly seem to be improved compared to the last CAT scan done on 01/16/2023 2D echo 01/17/2023:EF 60-65%, grade 2 diastolic dysfunction, RVSP 40-50 mmHg, RV normal in size and function, mild MR -- Acute on chronic hypoxic respiratory failure Etiology is not clear I think it is a combination of underlying autoimmune rheumatoid factor positive disease as well as diastolic dysfunction BNP is elevated, patient's rheumatoid factor was also positive. 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 Bronc culture showing Shila which is a colonizer 20% lymphocytes on the BAL, CD4:CD8 ratio 5.04 There is improvement in the CAT scan compared to the one done 01/16/2023. There is still persistent opacities I think there is mixed picture here; diastolic CHF is playing a role along with pulmonary hypertension from underlying LISBETH/OHS Given the positive rheumatoid factor, autoimmune process is also playing a part. -- Pulmonary hypertension Type II likely from grade 2 diastolic dysfunction Possible pulmonary hypertension also playing a role -- LISBETH BiPAP nightly and as needed shortness of breath Patient was not able to tolerate CPAP in the past She does seem to have moderate to severe sleep apnea which was appreciated under conscious sedation during bronchoscopy Importance of CPAP/BiPAP expected the patient in depth Plan: -2.5 L since coming to the hospital Patient's creatinine has bumped up. Hold Lasix. Recommend 20 mg of Lasix on a daily basis at home on discharge as well. She needs to follow-up with primary care to keep an eye on her creatinine I think the next best step for the patient would be to continue with diuresis and steroids. She will need a VATS biopsy in future Recommend prednisone 40 mg for 10 days followed by 30 mg for 10 days followed by 20 for 10 and then 10 mg till she sees a shuttle veneering supervisor/CT surgeon Recommend Bactrim double strength [id number] while the patient is on prednisone Repeat CT chest in 6-8 weeks Case discussed with Dr. Foley Please note the above document was generated using voice recognition software. It may contain grammatical, syntax or spelling errors.Any formal questions or concerns about the content, text or information contained within the body of this dictation should be directly addressed to the provider for clarification. Admission and Anticipated Discharge Date Admission Date: February 21, 2023 Subjective Patient seen and examined at bedside. No acute distress, no adverse signs overnight Denies any headache, no nausea vomiting Fair appetite While sitting she is doing well on exertion she still gets short of breath She did not use the BiPAP overnight as they were doing nocturnal pulse oximetry Review of Systems Review of Systems: All systems reviewed & are unremarkable except as noted in Subjective Physical Exam Physical Exam: Constitutional: No acute distress HEENT: EOMI, PERRLA Respiratory system:Decreased air entry bilaterally, no wheeze, no rhonchi, positive crackles bilaterally, more on the right side CVS: S1-S2 positive, no murmurs or gallops Abdomen: Soft, nontender, nondistended, positive bowel sounds x4,obese Extremities: +2 pulses bilaterally radialis/ dorsalis pedis,no cyanosis, no edema Neuro: Awake alert oriented x3 Psych: Normal mood and affect G/U: No Oliveros Skin: no rashes, warm and dry Lymphatic: no cervical or axillary lymphadenopathy Results & Data Results & Data Vital Signs (Past 12 Hours) Vital Signs Temp Pulse Pulse Pulse Resp BP Pulse Ox 02/26/23 02:57 36.6 C 75 18 122/67 96 02/26/23 02:51 72 02/26/23 01:00 65 02/25/23 23:25 36.6 C 75 18 155/80 H 94 02/25/23 22:16 02/25/23 21:46 76 02/25/23 20:06 36.8 C 73 18 126/70 95 Pulse Ox O2 Del Method O2 Del Method O2 Flow Rate O2 Flow Rate 02/26/23 02:57 Nasal Cannula 2 02/26/23 02:51 98 Nasal Cannula 2 02/26/23 01:00 02/25/23 23:25 Nasal Cannula 2 02/25/23 22:16 Nasal Cannula 2 02/25/23 21:46 95 Nasal Cannula 2 02/25/23 20:06 Nasal Cannula 3 Laboratory Results 02/23/23 08:43 PG Care Time/CCT Total # of Minutes Spent Total Time Spent with Patient: Total time spent is greater than 50% in coordination of care (as documented) at patient's floor/unit and/or counseling patient: Coding Level of Care Code 91219 SUB INP/OBS CARE 2/35MIN Diagnoses NSIP (nonspecific interstitial pneumonitis) J84.89 Pulmonary hypertension I27.20 Abnormal CXR R93.89 Obesity E66.9 LISBETH (obstructive sleep apnea) G47.33 Acute on chronic respiratory failure with hypoxemia J96.21
[2023-02-26] MEDS: metFORMIN HCL ER 500 MG TABCR PO SCH (07:25)
[2023-02-26] MEDS: predniSONE 20 MG TAB PO SCH (07:25)
[2023-02-26] MEDS: VENLAFAXINE HCL XR 75 MG CAPXR PO SCH (07:26)
[2023-02-26] MEDS: allopurinoL 100 MG TAB PO SCH (07:26)
[2023-02-26] MEDS: estradioL 1 MG TAB PO SCH (07:27)
[2023-02-26 07:39] LABS: BUN Creatinine Ratio 30.7 (10-20); Calcium 10.7 mg/dl (8.6-10.3); Creatinine Clr Calc Pharmacy 50.5 ml/min; Est GFR (African American) 63.5 ml/min; Est GFR (Non-African American) 54.8 ml/min; Magnesium 1.6 mg/dl (1.7-2.4); Potassium 3.8 mmol/L (3.5-5.1)
[2023-02-26] MEDS: VIBEGRON 75 MG TAB PO SCH (07:42)
[2023-02-26] MEDS: INSULIN ASPART PER UNIT CHARGE SC SCH ×2 (07:45→12:21)
--- NOTE | 2023-02-26 14:46 | Discharge Summary ---
Date of Service February 26, 2023 Admission HPI Per Admitting Provider Ketty Hernández is a 72 year old female who presents to the ER with shortness of breath. She was recently admission from January 16 - January 21 for pneumonia involving her right lung (see below for full breakdown of treatment). She reports improvement during that last admission but was not back to her baseline on discharge and was still requiring 2LPM O2 on exertion with O2 sats > 81% on room air on 2 step at discharge. She stayed home for the following week to rest. She had a problem getting enough portable oxygen to last her for a day at work so when working she didn't have oxygen. 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 This was up until the last week when she has been getting progressively more short of breath with minimal exertion such as going to the bathroom. Associated chest pain on exertion with her shortness of breath only. Associated wheezing. She was treated with Lasix last admission (see below) however she denies any orthopnea (in fact feels better lying down), paroxysmal nocturnal dyspnea, palpitations, claudication or leg swelling. No history of prior heart attacks or cardiovascular disease. She denies any autoimmune diseases however she has nieces with rheumatoid arthritics and lupus. She denies any other unexplained medical conditions, rashes or arthritis pains. She does note occasional mouth ulcers but these do not come in clusters. No dysphagia, odynophagia, coughing or choking after eating. She is a non-smoker, no vaping, no significant smoke or known chemical exposure. No travel out of [place] for the last 6 months. Workup/treatment last admission: Initially suspected community acquired pneumonia and treated with ceftriaxone 2g IV + doxycycline 100mg IV 01/16, switched to Unasyn 01/16 - 01/17 then discontinued (although mentioned in hospitalist note she was still taking review of last admission shows 01/17 was the last date she received it, suspect discontinued by pulmonology as did not suspect typical pneumonia). Extended course of azithromycin given inpatient from 01/16 - 02/17 with azithromycin 500mg QAM on discharge although only x3 250mg tablets given, this was subsequently extended Susana Roldan on 01/23 for 250mg PO daily for a futher 5 days. Lasix 40mg given on [01/17], 60mg total [01/19], 40mg [01/20] Solu-medrol 40mg BID started [01/19] and she was discharged on prednisone taper over 6 days (40mg for three days then 20mg for 3 days) CRP 38, not repeated last admission but down to 12.92 today. No measurements in between. Procalcitonin 0.08, repeat today < 0.05 Bronchoscopy performed [01/18] Microbiology with erick albicans / dubliniensis only BAL Coccidioides PCR negative BAL Histo/Blasto PCR negative BAL Legionnaire culture negative Pneumocystis jirovecii PCR negative BAL respiratory virus culture negative for influenza, RSV and adenovirus BAL Urine legionella negative Roderick cytometry - CD4/CD8 radio 5.04 Pathology with scattered macrophages, benign bronchial cells and neutrophils CXR improved on last date of admission [01/20] but no clear improvement prior to this. Appears worse today. Principal Diagnosis nonspecific interstitial pneumonitis acute on chronic diastolic heart failure Discharge Exam patient is awake and alert no respiratory distress Discharge Data Allergies Allergy/AdvReac Type Severity Reaction Status Date / Time Beta-Blockers AdvReac Severe wipes me Verified 02/21/23 16:39 (Beta-Adrenergic Bloc out Consultations 02/21/23 18:14 ED Decision to Admit Stat 02/21/23 21:09 Consult Pulmonology Routine Ordered Studies 02/23/23 08:00 CT chest diagnostic wo con Routine Hospital Course (1) NSIP (nonspecific interstitial pneumonitis): persistent elevated CRP Rheumatoid factor elevated at 51, JESSICA screen positive 1:40, nuclear homogenous, subsequent antibodies including anti-dsDNA negative No eosinophilia to suggest drug reaction. 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 we will need to facilitate referral for VATS pulmonary medicine recommends long slow taper of prednisone, 40 x 10 days 30 x 10 days 20 x 7 days 10 x 10 dayswhile on prednisone Bactrim DS 1 tablet Monday Spoke to the patient about her VATS after speaking with [facility] likely will need outpatient referral patient is comfortable going to [facility] concern for needing CPAP nocturnal oximetry dressed overnight with 2 L oxygen did not show significant desaturations subsequently patient be discharged home however two-step oxygen test did reveal the patient requires 4 L we will prescribe an oxygen conserving device to allow more mobility (2) Acute respiratory failure with hypoxia: Tachypnea with hypoxia Suspect secondary to NSIP as above however also made some improvement per hospitalist notes prior to steroids last admission therefore suspect Lasix made some difference. given Lasix 40mg and continue on 20mg PO daily (suspect some right sided heart failure/pulmonary hypertension) due to NSIP as above. (3) Hypomagnesemia: replete (4) T2DM (type 2 diabetes mellitus): HbA1C 6.0 Continue metformin and Trulicity Novolog for corection only unless needing regularly: --Goal BSG Range: Low 110 mg/dL, High 140 mg/dL --Correction Factor: 50 mg/dL/unit (5) Hypothyroid: TSH 1.697. Continue levothyroxine. (6) Hypertension: Continue olmesartan (7) Abnormal CXR: Total Time Total Time Spent Total Time Spent (In Minutes): it required greater than 30 minutes to prepare this patient for discharge Discharge Plan Discharge Items Patient Disposition: Home - Self-Care Reason For Visit: ACUTE CHF, HYPOXIA, MULTIFOCAL PNA Discharge Diagnosis: Non specific interstitial pneumonitis diastolic heart failure Activity: Resume your previous activity Non-emergency contact: Primary Care Provider, Surgeon, Specialist and Parking Technician Call non-emergency contact if: your symptoms worsen Follow-up/Referrals: Ghassan Kahn, DO [Primary Care Provider] - (PLEASE CALL YOUR PRIMARY CARE PROVIDER TO SCHEDULE A DISCHARGE FOLLOW-UP APPOINTMENT WITHIN 7-10 DAYS.) Diet: Regular Addtl Attending Provider Instructions: Please take your prednisone as directed 4 pills a day for 10 days then 3 a day for 10 days then 2 a day for 10 days then one a day antibiotics while on prednisone to prevent other infection continue diuretic/fluid medicine follow up with your primary care and expect a call to coordinate your appointment in [facility] wear oxygen as directed Addtl Bowling Alley Manager Provider Instructions: Call 911 and go to the Emergency Room if: * You have tightness or pain in your chest that does not go away with rest or Nitroglycerin * You are very short of breath even with rest Call your doctor if any of the following symptoms or problems start or get worse: * Shortness of breath or difficulty breathing * Wake up at night short of breath * Chest pain * Cough * Swelling of your hands, fee, or legs * More fatigued or tired with your normal activity * Palpitations - sudden fast heart beats WEIGHT * Weigh yourself every morning after using the bathroom. * Use the same scale. * Wear the same amount of clothing. * Write your weight down on your chart. * Call your doctor if you gain more than 2-3 pounds in 1-2 days. MEDICATIONS * Use this discharge instruction sheet for instructions. * Take your medications at the time your doctor ordered. * Do not skip a dose of your medicines. * If you miss a dose of medicine, take as soon as possible, but DO NOT DOUBLE A DOSE. * Read your medicine information when you get home. * Know all of the side effects of your medicine. * Call your doctor's office if you have any side effects. * Be sure all of your doctors know what medicine and herbs you take (including cold, flu, and herbal medicine). * Pain Medicine: If you do not get relief from your pain, please call your doctor for help. Take the following with you to your follow-up doctor appointments: * Weight Chart * Medication List * List of questions Do not drink excessive alcohol, beer or wine. Pending Studies at Discharge: Yes Studies:: there are send out test that were ordered by pulmonary medicine Stand-Alone Forms: My [facility], Smoking Cessation Medications and DC Order Prescriptions: New furosemide [Lasix] 20 mg tablet 20 mg PO DAILY Qty: 30 2RF prednisone 10 mg tablet 10 mg PO DIRECTED Qty: 90 0RF Rx Instructions: 4 daily x 10 days->3 daily [id number] daily x 10days->one daily sulfamethoxazole-trimethoprim [Bactrim DS] 800-160 mg tablet 1 tab PO UD 14 Days Qty: 14 4RF Rx Instructions: one pill monday (DME) Oxygen Home Liters Per Minute See Rx Instructions .Route Qty: 2 0RF Rx Instructions: As directed Continued venlafaxine 75 mg capsule,extended release 24hr 75 mg PO QAM allopurinol 100 mg tablet 100 mg PO QAM metformin 500 mg tablet extended release 24 hr 500 mg PO BIDM sertraline 50 mg tablet 50 mg PO QAM Myrbetriq 50 mg tablet extended release 24 hr 50 mg PO QAM estradiol 1 mg tablet 1 mg PO QAM pantoprazole 40 mg tablet,delayed release (DR/EC) 40 mg PO DAILYBB cyclobenzaprine 5 mg tablet 5 mg PO UD PRN (Reason: Muscle Spasm) Trulicity 1.5 mg/0.5 mL pen injector 1.5 mg SUBCUT WK Rx Instructions: hydroxyzine HCl 25 mg tablet 25 mg PO Q8 PRN (Reason: Anxiety) solifenacin 5 mg tablet 5 mg PO QAM latanoprost 0.005 % drops 1 drp OPB QPM pravastatin 40 mg tablet 40 mg PO HS pramipexole 0.25 mg tablet 0.25 mg PO HS fluoride (sodium) [Sodium Fluoride 5000 Plus] 1.1 % cream 1 applic dental QAM levothyroxine 100 mcg tablet 100 mcg PO DAILYBB olmesartan 20 mg tablet 20 mg PO DAILY Qty: 30 0RF venlafaxine 150 mg capsule,extended release 24hr 150 mg PO QAM Discharge Orders: Discharge Order (Routine); Ordered 02/26/23 Ordered By: Kike Foley Admission Data Admit Date/Time: 02/21/23 18:34 Attending Provider: Kike Foley Admit Provider: Misha Bueno Primary Care Provider: Ghassan Kahn Other Providers: Misha Bueno ; Oseas Pierson Other Interventions: Discharge Summary Assessment (RN) Last Done: 02/26/23 11:09 Coding Level of Care Code 36417 INP/OBS DISCH >30 MIN Diagnoses NSIP (nonspecific interstitial pneumonitis) J84.89 Acute respiratory failure with hypoxia J96.01 Hypomagnesemia E83.42 T2DM (type 2 diabetes mellitus) E11.9 Hypothyroid E03.9 Hypertension I10 Abnormal CXR R93.89
== END 2023-02-26 14:35 | disposition home or self-care (01) | DRG 196 ==
LOC: ED 15:34 → SUATTDRO 18:34 → 2N 18:34

== ENCOUNTER 2023-07-08 16:45 | Inpatient (IN) ==
[2023-07-08 17:48] LABS: Hematocrit (blood only) 30.6 % (37.0-47.0); Hemoglobin 9.7 g/dl (12.0-16.0); Mean Corpuscular Hemoglobin 26.1 pg (25.0-34.0); Mean Corpuscular Hgb Conc 31.7 g/dL (32.0-36.0); Mean Corpuscular Volume 82.3 fL (80.0-100.0); Mean Platelet Volume 10.6 fL (9.4-12.4); Platelet Count 229 K/uL (130-400); RDW Coefficient of Variation 17.9 % (11.5-14.5); RDW Standard Deviation 52.7 fL (36.4-46.3); Red Blood Count 3.72 M/uL (4.20-5.40); White Blood Count 9.35 K/ul (4.8-10.8)
[2023-07-08 18:04] LABS: Albumin Globulin Ratio 1.2 (0.9-2); Albumin Level 3.7 gm/dl (3.4-5.0); BUN Creatinine Ratio 18.4 (10-20); Bilirubin,Total 0.5 mg/dl (0.2-1.0); Creatinine Clr Calc Pharmacy 45.9 ml/min; Est GFR (African American) 54.9 ml/min; Est GFR (Non-African American) 47.3 ml/min; Total Protein 6.7 gm/dl (6.0-8.3)
[2023-07-08 18:06] LABS: Basophils # (auto) 0.02 K/uL (0.00-0.20); Basophils % (auto) 0.2 %; Eosinophils # (auto) 0.01 K/uL (0.00-0.50); Eosinophils % (auto) 0.1 %; Immature Granulocytes # (auto) 0.05 K/uL (0.01-0.20); Immature Granulocytes % (auto) 0.5 %; Lymphocytes % (auto) 5.3 %; Monocytes # (auto) 0.26 K/uL (0.11-0.59); Monocytes % (auto) 2.8 %; Neutrophils # (auto) 8.51 K/uL (1.40-6.50); Neutrophils % (auto) 91.1 %; Ovalocytes 1+
[2023-07-08 18:11] LABS: Troponin I High Sensitivity 45.2 pg/ml (0-14)
[2023-07-08 18:19] LABS: Influenza A virus by PCR Negative (Neg); Influenza B virus by PCR Negative (Neg); RSV by PCR Negative (Neg); SARS CoV2 RNA(COVID-19) Ceph NEGATIVE (Negative)
[2023-07-08 18:24] LABS: Partial Thromboplastin Ratio 0.9; Partial Thromboplastin Time 25.4 Seconds (21.0-31.0)
[2023-07-08] MEDS ORDERED: FUROSEMIDE 40 MG/4 ML VIAL IV ONE (18:25)
--- NOTE | 2023-07-08 18:32 | Emergency Department Note ---
History of Present Illness General Chief complaint: Shortness of Breath/Dyspnea Stated complaint: DIFFICULTY BREATHING Time Seen by Provider: 07/08/23 18:19 History of Present Illness 72-year-old female presents emergency department with a 3-day history of dyspnea on exertion orthopnea and a 17 pound weight gain. Patient states that she has had increased shortness of breath over the past day. Patient had stopped taking her diuretic, Motrin and metformin. Patient states that she had issues with her kidneys in the past. Patient was concerned due to shortness of breath. Patient had used oxygen at home in the past but has not been using that for period of time now. Patient denies fever cough cold congestion or substernal chest pressure. There are no other mitigating or alleviating factors. Home Medications Medication Instructions Recorded Confirmed Type allopurinol 100 mg tablet 100 mg PO [facility] 01/16/23 07/08/23 History dulaglutide 1.5 mg/0.5 mL 1.5 mg subcut WK 01/16/23 07/08/23 History subcutaneous pen injector (Trulicity) fluoride (sodium) 1.1 % dental 1 applic dental [facility] 01/16/23 07/08/23 History cream (Sodium Fluoride 5000 Plus) hydroxyzine HCl 25 mg tablet 25 mg PO Q8 PRN Anxiety 01/16/23 07/08/23 History latanoprost 0.005 % eye drops 1 drp OPB QPM 01/16/23 07/08/23 History levothyroxine 100 mcg tablet 100 mcg PO DAILYBB 01/16/23 07/08/23 History mirabegron 50 mg tablet,extended 50 mg PO [facility] 01/16/23 07/08/23 History release 24 hr (Myrbetriq) pantoprazole 40 mg tablet,delayed 40 mg PO DAILYBB 01/16/23 07/08/23 History release pramipexole 0.25 mg tablet 0.25 mg PO HS 01/16/23 07/08/23 History pravastatin 40 mg tablet 40 mg PO HS 01/16/23 07/08/23 History sertraline 50 mg tablet 50 mg PO [facility] 01/16/23 07/08/23 History solifenacin 5 mg tablet 5 mg PO [facility] 01/16/23 07/08/23 History venlafaxine 75 mg capsule,extended 75 mg PO [facility] 01/16/23 07/08/23 History release 24 hr olmesartan 20 mg tablet 20 mg PO DAILY #30 tabs 01/21/23 07/08/23 Rx venlafaxine 150 mg 150 mg PO QAM 02/21/23 07/08/23 History capsule,extended release 24 hr Oxygen Home #2 L 02/26/23 Rx furosemide 20 mg tablet (Lasix) 20 mg PO DAILY #30 tabs 02/26/23 07/08/23 Rx prednisone 10 mg tablet 10 mg PO DIRECTED #90 tabs 02/26/23 07/08/23 Rx Allergies Allergy/AdvReac Type Severity Reaction Status Date / Time Beta-Blockers AdvReac Severe wipes me Verified 02/21/23 16:39 (Beta-Adrenergic Bloc out Past Med/Surg History Medical History T2DM (type 2 diabetes mellitus) Urge incontinence Cellulitis Hypothyroid Depression Hypertension Cellulitis Cystitis Social History Smoking Status: Never smoker Second Hand Exposure: No; Do You Dip or Chew Tobacco: No; Hx Alcohol Use: Yes Alcohol type: wine Hx Substance Use: No Preferred Language: Estonian Communication Ability: Effective Lamination Operator Required: No Beliefs That Will Affect Care: None Current Living Situation: Spouse Feels Safe at Home: Yes Assistive Devices: Denture - Upper, Glasses, Hearing Aid - Bilateral and Oxygen - Continuous Review of Systems A total of 10 systems reviewed and were otherwise negative Respiratory: + dyspnea; no cough Cardiovascular: no chest pain Physical Exam Vital Signs Vital Signs - 24 hr 07/08/23 16:52 07/08/23 16:57 07/08/23 18:26 Temperature 36.8 C Temperature Source Temporal Artery Scan Pulse Rate 84 84 Pulse Rate [Left Finger] Respiratory Rate 18 Respiratory Effort / Characteristics Non-Labored Spontaneous Respiratory Depth Normal Respiratory Pattern Regular Blood Pressure 145/59 H Blood Pressure [Left Arm] Blood Pressure Mean 87 Blood Pressure Mean [Left Arm] Blood Pressure Position Sitting Blood Pressure Position [Left Arm] Pulse Oximetry 96 88 L Oxygen Delivery Method Nasal Cannula Nasal Cannula Oxygen Flow Rate 3 0 Sepsis Recent Fever Within 48 Hours No Sepsis New/Unexplained Change in Mental Status N/A Sepsis Action Taken by Nursing No Action Required Oxygen Flow Rate - Titration 3 Pulse Oximetry Post Tiitration 96 07/08/23 18:55 Temperature Temperature Source Pulse Rate Pulse Rate [Left Finger] 60 Respiratory Rate 20 Respiratory Effort / Characteristics Respiratory Depth Respiratory Pattern Blood Pressure Blood Pressure [Left Arm] 141/71 H Blood Pressure Mean Blood Pressure Mean [Left Arm] 94 Blood Pressure Position Blood Pressure Position [Left Arm] Sitting Pulse Oximetry 98 Oxygen Delivery Method Oxygen Flow Rate Sepsis Recent Fever Within 48 Hours Sepsis New/Unexplained Change in Mental Status Sepsis Action Taken by Nursing Oxygen Flow Rate - Titration Pulse Oximetry Post Tiitration GENERAL: Patient is awake alert in no acute distress patient is resting comfortably and showing no signs of anxiety EYES: The conjunctivae are clear. The pupils are round and reactive. EARS, NOSE, MOUTH AND THROAT: The nose is without any evidence of any deformity. Mucous membranes are moist. Tongue is midline. NECK: The neck is nontender and supple. RESPIRATORY: Normal respiratory effort is noted; crackles bilaterally CARDIOVASCULAR: Regular rate and rhythm noted there no murmurs rubs or gallops normal S1 normal S2. GASTROINTESTINAL: The abdomen is soft. Abdomen is nontender. PELVIS: The Pelvis is stable. No tenderness to palpation is noted. BACK: No midline tenderness or or step-off noted range of motion in flexion extension as well as rotation no signs of muscle spasm noted MUSCULOSKELETAL/EXTREMITIES: There is no evidence of gross deformity full range of motion is noted in the hips and shoulders. Bilateral lower extremity edema SKIN: There is no obvious evidence of any rash. There are no petechiae, pallor or cyanosis noted. NEUROLOGIC: Patient is awake alert and oriented x3 strength is symmetric Course Administered Medications Discontinued Medications Furosemide (Furosemide 40 Mg/4 Ml Vial) 40 mg IV ONE ONE Stop: 07/08/23 18:26 Last Admin: 07/08/23 18:53 Dose: 40 mg Documented By: CASEY Medical Decision Making Medical Records Attestation: I reviewed the patient's medical records. Home Medications Current Medication List: was personally reviewed by me Laboratory Data Attestation: I reviewed the patient's lab results. Patient has an elevated BNP, a mildly elevated blood sugar, mildly anemic, and a mildly elevated troponin 07/08/23 17:30 07/08/23 17:30 Lab Results 07/08/23 Range/Units 17:30 WBC 9.35 (4.8-10.8) K/ul RBC 3.72 L (4.20-5.40) M/uL Hgb 9.7 L (12.0-16.0) g/dl Hct 30.6 L (37.0-47.0) % MCV 82.3 (80.0-100.0) fL MCH 26.1 (25.0-34.0) pg MCHC 31.7 L (32.0-36.0) g/dL RDW Std Deviation 52.7 H (36.4-46.3) fL RDW Coeff of Jason 17.9 H (11.5-14.5) % Plt Count 229 (130-400) K/uL MPV 10.6 (9.4-12.4) fL Immature Gran % (Auto) 0.5 % Neut % (Auto) 91.1 % Lymph % (Auto) 5.3 % [place] % (Auto) 2.8 % Eos % (Auto) 0.1 % Baso % (Auto) 0.2 % Neut # (Auto) 8.51 H (1.40-6.50) K/uL Lymph # (Auto) 0.50 L (1.20-3.40) K/uL [place] # (Auto) 0.26 (0.11-0.59) K/uL Eos # (Auto) 0.01 (0.00-0.50) K/uL Baso # (Auto) 0.02 (0.00-0.20) K/uL Immature Gran # (Auto) 0.05 (0.01-0.20) K/uL Ovalocytes 1+ ESR 42 H (0-30) mm/hr PT 11.0 (9.0-12.0) Seconds INR 1.0 (0.9-1.1) APTT 25.4 (21.0-31.0) Seconds PTT Ratio 0.9 Sodium 136 (136-145) mmol/L Potassium 4.0 (3.5-5.1) mmol/L Chloride 105 (98-107) mmol/L Carbon Dioxide 21 (21-32) mmol/L Anion Gap 10 (3-11) BUN 21 (6-23) mg/dl Creatinine 1.14 (0.6-1.2) mg/dl Est Cr Clr Drug Dosing 45.9 ml/min Est GFR ( Amer) 54.9 ml/min Est GFR (Non-Af Amer) 47.3 ml/min BUN/Creatinine Ratio 18.4 (10-20) Glucose 269 H (70-99(Fasting)) mg/dl Calcium 10.0 (8.6-10.3) mg/dl Total Bilirubin 0.5 (0.2-1.0) mg/dl AST 58 H (13-39) U/L ALT 63 H (7-52) U/L Alkaline Phosphatase 87 (34-104) U/L Troponin I High Sens 45.2 H (0-14) pg/ml B-Natriuretic Peptide 652 H (0-100) pg/ml Total Protein 6.7 (6.0-8.3) gm/dl Albumin 3.7 (3.4-5.0) gm/dl Globulin 3.0 (2.5-4.0) gm/dl Albumin/Globulin Ratio 1.2 (0.9-2) SARS-CoV-2 (PCR) NEGATIVE (Negative) Influenza Type A (PCR) Negative (Neg) Influenza Type B (PCR) Negative (Neg) RSV (RT-PCR) Negative (Neg) Imaging Data Attestation: I personally reviewed and interpreted this imaging study as follows: My Impression: Chest x-ray interpreted by me slight increased vascular markings bilaterally Radiologist's Impression: Chest X-Ray 07/08/23 16:58 SINGLE VIEW CHEST CLINICAL HISTORY: Atypical chest pain FINDINGS: A PA chest radiograph is compared to study dated 02/25/2023 and correlated with chest CT dated 02/23/2023. The heart is enlarged. There is pulmonary vascular congestion. Chronic interstitial thickening and foci of parenchymal scarring are similar to previous Suspect trace pleural effusion. Mild bilateral airspace opacities are noted. These have significantly cleared as compared to 02/25/2023. No pneumothorax is seen. The skeletal structures are osteopenic. The bony thorax is grossly intact. Degenerative change and scoliosis is noted in the spine. IMPRESSION: 1. Cardiomegaly with pulmonary vascular congestion. 2. Mild bilateral airspace opacities are nonspecific and could be related to chronic lung disease, mild pulmonary edema, and/or an infectious/inflammatory pneumonitis. These have significantly cleared as compared to the 02/25/2023 examination. Radiographic follow-up to resolution is recommended. 3. Suspect small pleural effusions. ACT 112: Negative or not required by law. Electronically signed by: Epifanio Hugo M.D. 07/08/2023 7:32 PM ECG Data Attestation: I personally reviewed and interpreted this ECG as follows: Additional Comments: EKG interpreted by me sinus rhythm rate is 70, PA interval is shortened, there is no obvious ST segment elevation or depression there is nonspecific ST-T changes incomplete right bundle branch block there is a left axis deviation Telemetry was ordered by me, interpreted as normal sinus rhythm rate of 70 MDM Narrative Medical decision making differential diagnosis includes CHF, pneumonia, COVID, electrolyte abnormality, acute coronary syndrome, cardiac dysrhythmia Plan is to check EKG chest x-ray, labs, give IV Lasix I reviewed the patient's echocardiogram of January 17, 2023 in which the patient had an EF of 60 to 65% Patient's friend at bedside states that she has had increased shortness of breath over the past 2 days and a significant weight gain Impression & Plan Congestive heart failure, Hypoxia Discharge Plan Visit Data Chief Complaint: Shortness of Breath/Dyspnea Stated Complaint: DIFFICULTY BREATHING ED Provider: Isma Bailey Discharge Problem: Congestive heart failure, Hypoxia Patient Disposition: Admitted As Inpatient Forms Stand Alone Forms: My [facility] Prescriptions Prescriptions: No Action venlafaxine 75 mg capsule,extended release 24hr 75 mg PO QAM allopurinol 100 mg tablet 100 mg PO QAM sertraline 50 mg tablet 50 mg PO QAM Myrbetriq 50 mg tablet extended release 24 hr 50 mg PO QAM pantoprazole 40 mg tablet,delayed release (DR/EC) 40 mg PO DAILYBB Trulicity 1.5 mg/0.5 mL pen injector 1.5 mg SUBCUT WK Rx Instructions: hydroxyzine HCl 25 mg tablet 25 mg PO Q8 PRN (Reason: Anxiety) solifenacin 5 mg tablet 5 mg PO QAM latanoprost 0.005 % drops 1 drp OPB QPM pravastatin 40 mg tablet 40 mg PO HS pramipexole 0.25 mg tablet 0.25 mg PO HS fluoride (sodium) [Sodium Fluoride 5000 Plus] 1.1 % cream 1 applic dental QAM levothyroxine 100 mcg tablet 100 mcg PO DAILYBB olmesartan 20 mg tablet 20 mg PO DAILY Qty: 30 0RF venlafaxine 150 mg capsule,extended release 24hr 150 mg PO QAM furosemide [Lasix] 20 mg tablet 20 mg PO DAILY Qty: 30 2RF prednisone 10 mg tablet 10 mg PO DIRECTED Qty: 90 0RF Rx Instructions: 4 daily x 10 days->3 daily [id number] daily x 10days->one daily (DME) Oxygen Home Liters Per Minute See Rx Instructions .Route Qty: 2 0RF Rx Instructions: As directed Referrals Referrals: Susana Roldan CRNP [Primary Care Provider] -
--- NOTE | 2023-07-08 18:51 | History & Physical Report ---
Date of Service July 08, 2023 Assessment & Plan (1) Acute on chronic heart failure with preserved ejection fraction: Plan: Secondary to recently stopping Lasix Start Lasix 40mg IV daily Strict I&Os Daily weights Low Na, fluid restricted diet (2) Acute on chronic respiratory failure with hypoxemia: Plan: Secondary to pulmonary edema Aim O2 sats > 90%, basline on room air (3) LISBETH (obstructive sleep apnea): Plan: CPAP HS (4) NSIP (nonspecific interstitial pneumonitis): Plan: ?due to rheumatoid per last pulm workup Follows with [facility] pulmonology and reports workup just showed asthma rather than restrictive lung disease therefore unclear if this is a true diagnosis Currently on prednisone 30mg PO daily (mainly for her joint pain off ibuprofen) awaiting follow up rheumatology appointment Consider restarting Bactrim for PCP prophylaxis CRP/ESR ordered (5) T2DM (type 2 diabetes mellitus): Plan: HbA1C 6.0 in December, repeat with AM labs Holding recently d/c metformin and Trulicity Novolog: --Goal BSG Range: Low 110 mg/dL, High 140 mg/dL --Correction Factor: 45 mg/dL/unit --Carbohydrate ratio = 15 g/unit --BSGs ACHS if eating, q6h if npo (6) GERD (gastroesophageal reflux disease): Plan: Continue pantoprazole Plan VTE Prophyalxis - Lovenox 40mg SQ daily Diet - low Na, heart healthy, T2DM, fluid restrict Disposition - admit to med/tele Admission and Anticipated Discharge Date Admission Date: July 08, 2023 History of Present Illness Chief Complaint: Shortness of breath Primary Care Provider: CYRUS Mcelroy Ketty Hernández is a 72 year old female with known HFpEF who presents to the ER with shortness of breath and weight gain of 17lb over just the last 2 days. She reports having some abnormal kidney test (she is unable to find the result of this but was at her baseline on May 24) and therefore her PCP stopped her metformin and Lasix and told her not to take NSAIDs. She has been off Lasix for the last week. She reports urinating less off the lasix but no dysuria or change in smell. Associated orthopnea and PND. No presyncope or chest pain. Current on prednisone 30mg - mainly due to pain with RA with back and hips rather than lung disease. Increased by PCP as ibuprofen was stopped which was working well for her joints. Allergies Allergy/AdvReac Type Severity Reaction Status Date / Time Beta-Blockers AdvReac Severe wipes me Verified 02/21/23 16:39 (Beta-Adrenergic Bloc out Home Medications Medication Instructions Recorded Confirmed Type allopurinol 100 mg tablet 100 mg PO QAM 01/16/23 07/08/23 History dulaglutide 1.5 mg/0.5 mL 1.5 mg subcut WK 01/16/23 07/08/23 History subcutaneous pen injector (Trulicity) fluoride (sodium) 1.1 % dental 1 applic dental QA 01/16/23 07/08/23 History cream (Sodium Fluoride 5000 Plus) hydroxyzine HCl 25 mg tablet 25 mg PO Q8 PRN Anxiety 01/16/23 07/08/23 History latanoprost 0.005 % eye drops 1 drp OPB QPM 01/16/23 07/08/23 History levothyroxine 100 mcg tablet 100 mcg PO DAILYBB 01/16/23 07/08/23 History mirabegron 50 mg tablet,extended 50 mg PO QAM 01/16/23 07/08/23 History release 24 hr (Myrbetriq) pantoprazole 40 mg tablet,delayed 40 mg PO DAILYBB 01/16/23 07/08/23 History release pramipexole 0.25 mg tablet 0.25 mg PO HS 01/16/23 07/08/23 History pravastatin 40 mg tablet 40 mg PO HS 01/16/23 07/08/23 History sertraline 50 mg tablet 50 mg PO QA 01/16/23 07/08/23 History solifenacin 5 mg tablet 5 mg PO QA 01/16/23 07/08/23 History venlafaxine 75 mg capsule,extended 75 mg PO QA 01/16/23 07/08/23 History release 24 hr olmesartan 20 mg tablet 20 mg PO DAILY #30 tabs 01/21/23 07/08/23 Rx venlafaxine 150 mg 150 mg PO QAM 02/21/23 07/08/23 History capsule,extended release 24 hr Oxygen Home #2 L 02/26/23 Rx furosemide 20 mg tablet (Lasix) 20 mg PO DAILY #30 tabs 02/26/23 07/08/23 Rx prednisone 10 mg tablet 10 mg PO DIRECTED #90 tabs 02/26/23 07/08/23 Rx Past Med/Surg History Medical History T2DM (type 2 diabetes mellitus) Urge incontinence Cellulitis Hypothyroid Depression Hypertension Cellulitis Cystitis Social History Smoking Status: Never smoker Second Hand Exposure: No; Do You Dip or Chew Tobacco: No; Hx Alcohol Use: Yes Alcohol type: wine Hx Substance Use: No Preferred Language: Setswana Communication Ability: Effective Motorcycle Designer Required: No Beliefs That Will Affect Care: None Current Living Situation: Alone Feels Safe at Home: Yes Safety Concerns: Feels Safe At This Time Assistive Devices: Denture - Upper, Glasses and Hearing Aid - Bilateral Review of Systems Review of Systems: All systems reviewed & are unremarkable except as noted in HPI & below Physical Exam Constitutional: WD/WN, vitals as above Eyes: PERRL, conjunctivae normal, anicteric sclerae ENMT: external ear and nose normal, oropharynx normal Respiratory: normal respiratory effort; no respiratory distress Cardiovascular: Rate/Rhythm: regular rate and regular rhythm Heart Sounds: no murmur Extremities: normal capillary refill and + pedal edema; no calf tenderness Gastrointestinal (Abdomen): normal bowel sounds, soft, nontender, no hepatosplenomegaly Musculoskeletal: no cyanosis or clubbing, extremities motor strength 5/5 Skin: no rashes, warm and dry Neurologic: moves all extremities and awake; not confused Psychiatric: A+Ox3, euthymic affect Results & Data Results & Data Vital Signs (Past 12 Hours) Vital Signs Temp Pulse Resp BP Pulse Ox O2 Del Method O2 Flow Rate 07/08/23 18:26 84 07/08/23 16:57 88 L Nasal Cannula 0 07/08/23 16:52 36.8 C 84 18 145/59 H 96 Nasal Cannula 3 Laboratory Results Abnormal lab results 07/08/23 Range/Units 17:30 RBC 3.72 L (4.20-5.40) M/uL Hgb 9.7 L (12.0-16.0) g/dl Hct 30.6 L (37.0-47.0) % MCHC 31.7 L (32.0-36.0) g/dL RDW Std Deviation 52.7 H (36.4-46.3) fL RDW Coeff of Jason 17.9 H (11.5-14.5) % Neut # (Auto) 8.51 H (1.40-6.50) K/uL Lymph # (Auto) 0.50 L (1.20-3.40) K/uL Glucose 269 H (70-99(Fasting)) mg/dl AST 58 H (13-39) U/L ALT 63 H (7-52) U/L Troponin I High Sens 45.2 H (0-14) pg/ml B-Natriuretic Peptide 652 H (0-100) pg/ml Diagnostic Findings SINGLE VIEW CHEST CLINICAL HISTORY: Atypical chest pain FINDINGS: A PA chest radiograph is compared to study dated 02/25/2023 and correlated with chest CT dated 02/23/2023. The heart is enlarged. There is pulmonary vascular congestion. Chronic interstitial thickening and foci of parenchymal scarring are similar to previous Suspect trace pleural effusion. Mild bilateral airspace opacities are noted. These have significantly cleared as compared to 02/25/2023. No pneumothorax is seen. The skeletal structures are osteopenic. The bony thorax is grossly intact. Degenerative change and scoliosis is noted in the spine. IMPRESSION: 1. Cardiomegaly with pulmonary vascular congestion. 2. Mild bilateral airspace opacities are nonspecific and could be related to chronic lung disease, mild pulmonary edema, and/or an infectious/inflammatory pneumonitis. These have significantly cleared as compared to the 02/25/2023 examination. Radiographic follow-up to resolution is recommended. 3. Suspect small pleural effusions. Medications Administered ER Medications Given: Lasix 40mg IV daily ECG Rate (beats per minute): 70 Rhythm: normal sinus Findings: + PAC Comparison ECG Date: from (Feb 21, 2023) Change: the following changes noted (PVCs no longer present, PAC present, TWO no longer present in lateral leads) Code Status & VTE Plan Code Status Full VTE Prophylaxis Plan VTE Prophylaxis will be ordered: Yes PG Care Time/CCT Total # of Minutes Spent Total Time Spent with Patient: Total time spent is greater than 50% in coordination of care (as documented) at patient's floor/unit and/or counseling patient: Coding Level of Care Code 55013 INT INP/OBS CARE 3/75MIN Diagnoses Acute on chronic heart failure with preserved ejection fraction I50.33 Acute on chronic respiratory failure with hypoxemia J96.21 LISBETH (obstructive sleep apnea) G47.33 NSIP (nonspecific interstitial pneumonitis) J84.89 T2DM (type 2 diabetes mellitus) E11.9 GERD (gastroesophageal reflux disease) K21.9
--- NOTE | 2023-07-08 19:34 | XRay Report ---
SINGLE VIEW CHEST CLINICAL HISTORY: Atypical chest pain FINDINGS: A PA chest radiograph is compared to study dated 02/25/2023 and correlated with chest CT date d 02/23/2023. The heart is enlarged. There is pulmonary vascular congestion. Chronic interstitial thick ening and foci of parenchymal scarring are similar to previous Suspect trace pleural effusion. Mild b ilateral airspace opacities are noted. These have significantly cleared as compared to 02/25/2023. No p neumothorax is seen. The skeletal structures are osteopenic. The bony thorax is grossly intact. Degen erative change and scoliosis is noted in the spine. IMPRESSION: 1. Cardiomegaly with pulmonary vascular congestion. 2. Mild bilateral airspace opacities are nonspecific and could be related to chronic lung disease, mi ld pulmonary edema, and/or an infectious/inflammatory pneumonitis. These have significantly cleared a s compared to the 02/25/2023 examination. Radiographic follow-up to resolution is recommended. 3. Suspect small pleural effusions. ACT 112: Negative or not required by law. Electronically signed by: Epifanio Hugo M.D. 07/08/2023 7:32 PM
[2023-07-08 19:42] LABS: C Reactive Protein 15.91 mg/dl (0-0.5); Magnesium 1.3 mg/dl (1.7-2.4)
[2023-07-08] MEDS ORDERED: hydrOXYzine HCl 25 MG TAB PO PRN (22:44)
[2023-07-09] MEDS: PRAMIPEXOLE DIHYDROCHLO 0.25 MG TAB PO SCH ×2 (00:01→22:32)
[2023-07-09] MEDS: PRAVASTATIN SOD 40 MG TAB PO SCH ×2 (00:01→22:32)
[2023-07-09] MEDS: ENOXAPARIN INJ 40 MG/0.4 ML SYR SQ SCH ×2 (00:24→22:33)
[2023-07-09] MEDS ORDERED: CARBOHYDRATES FOR HYPOGLYCEMIA PO PRN (07:05)
[2023-07-09] MEDS ORDERED: GLUCOSE 40% GEL 15 GM TUBE PO PRN (07:05)
[2023-07-09] MEDS ORDERED: GLUCOSE 10 TAB/TUBE PO PRN (07:05)
[2023-07-09] MEDS ORDERED: DEXTROSE 50% 50 ML SYRINGE IV PRN (07:05)
[2023-07-09] MEDS ORDERED: GLUCAGON FOR INJ 1 MG VIAL SQ PRN (07:05)
[2023-07-09 07:27] LABS: Basophils # (auto) 0.02 K/uL (0.00-0.20); Basophils % (auto) 0.2 %; Eosinophils # (auto) 0.32 K/uL (0.00-0.50); Eosinophils % (auto) 3.1 %; Hematocrit (blood only) 28.3 % (37.0-47.0); Immature Granulocytes # (auto) 0.03 K/uL (0.01-0.20); Immature Granulocytes % (auto) 0.3 %; Lymphocytes # (auto) 1.01 K/uL (1.20-3.40); Lymphocytes % (auto) 9.8 %; Mean Corpuscular Hemoglobin 25.6 pg (25.0-34.0); Mean Corpuscular Hgb Conc 31.8 g/dL (32.0-36.0); Mean Corpuscular Volume 80.6 fL (80.0-100.0); Mean Platelet Volume 11.5 fL (9.4-12.4); Monocytes # (auto) 0.58 K/uL (0.11-0.59); Monocytes % (auto) 5.6 %; Neutrophils # (auto) 8.37 K/uL (1.40-6.50); Platelet Count 231 K/uL (130-400); RDW Coefficient of Variation 18.1 % (11.5-14.5); RDW Standard Deviation 52.2 fL (36.4-46.3); Red Blood Count 3.51 M/uL (4.20-5.40); Reticulocyte % 2.7 % (0.5-2.0); Reticulocytes # 0.09 10^6/uL (0.02-0.10); White Blood Count 10.33 K/ul (4.8-10.8)
--- NOTE | 2023-07-09 08:10 | Hospitalist Progress Note ---
Date of Service July 09, 2023 Assessment & Plan (1) Acute on chronic heart failure with preserved ejection fraction: Plan: Secondary to recently stopping Lasix Start Lasix 40mg IV daily Strict I&Os Daily weights Low Na, fluid restricted diet 07/09 Multifactorial: suspect given prior use 20mg PO lasix not effective, also not taking Synthroid on empty stomach (taking with other AM medications), recent NSAID use w/ worsening renal failure/anemia, as well as hypomagnesemia (appears chronic in nature) contributing, untreated sleep apnea/diastolic heart failure (to have CPAP, not yet arranged per patient) Will NOT adjust synthroid given such at present but rec to take on empty stomach/alone and repeat TFT outpatient. Also w/ anemia in setting of recent NSAID use/since stopped. Iron panel obtained and reviewed -LOW iron at 22, trans % sat 7, ferritin 34 B12 low normal 181, folate 7.8. Venofer 200mg x 1, B12 IM x 1 Will plan to repeat Venofer again in AM, oral B12 supplementation Mag 1.5-- IV replacement ordered and will monitor level in AM Increased lasix to 40mg IV BID per supervising provider direction...has been making good urine output but given supplementation/volume, to BID for today and can convert back to once daily tomorrow pending repeat eval/output/weights Will repeat limited echo to ensure preserved EF (Prior in December w/ EF 60-65%, mild MR, elevated RVSP 40-50%, grade II diastolic dysfunction) To note, patient reported she more distension/swelling/weight gain to her abdomen and consideration will be for switching her to torsemide 20mg vs bumex 1mg over lasix at discharge. -consideration for CHF clinic consultation for tomorrow. On PPI once daily at baseline and prednisone 30mg daily. -- consideration to increase to BID if needed. fecal occult ordered for completeness but denied any bleeding at present time Will ask CM to assist w/ reaching out to PCP office in AM to see about her most recent sleep study/CPAP (needed CPAP in past but didn't tolerate but has been agreeable) Supplemental O2 to maintain sats. Monitor labs in AM (2) Acute on chronic respiratory failure with hypoxemia: Plan: Secondary to pulmonary edema (as well as other contributing causes as outlined above) Aim O2 sats > 90%, baseline on room air Monitor I&O, weights (3) LISBETH (obstructive sleep apnea): Plan: CPAP HS -- she reports recent repeat sleep study -- will need to have CM reach out to PCP office monday to assist in making sure arranged at discharge as she reports she has NOT yet been set up with this as an outpatient (prior admit in February w/ o2step with 4L w/ ambulation but patient reports seeing lung doctor in [place] w/ testing and was told only thing it showed was asthma) mag IV ordered, monitor level on repeat should have albuterol HFA at discharge as doesn't appear she has one of these per med rec (will need to clarify) (4) NSIP (nonspecific interstitial pneumonitis): Plan: ?due to rheumatoid per last pulm workup inpatient Follows with [facility] pulmonology and reports workup just showed asthma rather than restrictive lung disease therefore unclear if this is a true diagnosis Currently on prednisone 30mg PO daily (mainly for her joint pain off ibuprofen) awaiting follow up rheumatology appointment CRP/ESR ordered -- elevated 42/15.91 (?2nd to anemia v other) Consider restarting Bactrim for PCP prophylaxis given high dose prednisone (5) T2DM (type 2 diabetes mellitus): Plan: HbA1C 6.0 in December, repeat 6.7 Holding home metformin/trullicity BSG AC/HS w/ SSI while inpatient BSGs acceptable and will monitor/adjustment to SSI as needed (6) GERD (gastroesophageal reflux disease): Plan: Continue pantoprazole. consider increasing to BID as above (7) Anemia: Plan: recent NSAID use reported, MCV 80.4. Most recent TSH wnl in December but will repeat given anemia for completeness Iron studies pending for this morning along w/ B12/folate 9.7 on admit --> 9.0 on am labs, fecal occult for completeness Iron panel w/ iron 22, trans % sat 7, ferritin 34. Venofer 200mg x1 ordered and plan for 300mg IV daily for tomorrow/monday depending inpatient stay Folate 7.8, wnl but could consider replacement as low normal B12 LOW NORMAL at 181 -IM replacement x 1, continue PO daily thereafter TSH elevated 8.0, T4 wnl --> patient not taking correctly (taking w/ her other AM meds) - rec taking correctly/repeat TFT w/ PCP in follow up as discussed taking adequately should help w/ weight gain/fatigue/edema etc Monitor CBC in AM (8) Hypercalcemia: Plan: appears prior values up to 10.7, 10.0 on admission. PTH 117.3 and prior check vitamin D as never had any in system/joint pain at baseline (9) Hypomagnesemia: Plan: low 1.3 on admission, repeat 1.5 --> IV replacement ordered for today and will monitor in AM . 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) Plan VTE Prophyalxis - Lovenox 40mg SQ daily ordered Continue inpatient stay, iron/b12 replacement, diuretics increased as outlined and checking repeat echo eval worsening EF/CHF clinic consultation monitor i&O, weights and titrate O2 as able Note, patient wanting all her information to [facility], Susana Roldan (will be having CM reach out in AM about her outpatient sleep study/CPAP -- hopefully able to arrange at discharge/O2 HS otherwise) Admission and Anticipated Discharge Date Admission Date: July 08, 2023 Supervising Physician Co-Signing Physician Notes The patient was not seen by me. The chart was reviewed. Case discussed with CURTIS Henriquez. Agree with assessment and plan Subjective eval this morning, resting in bed, got some sleep last night, not on CPAP/O2 at night but reports she had a test but hasn't been set up. Stopped lasix due to elevated Cr (reports thinks to 1.7 on her phone on outpatient labs). Notes she was taking ibuprofen for pain. Notes increased leg swelling. Prior on lasix 20mg PO daily. She notes she noticed increased abdominal fullness over leg swelling, and discussed she may benefit from torsemide/bumex for gut edema over lasix but will monitor. Has not gotten any lasix yet this morning, on 2L at present w/ some wheezing. +cough but no production of sputum. Difficulty sleeping laying flat. No bleeding in urine/stool reported. Discussed synthroid, she does take in AM on empty stomach but takes with the rest of her pills. Discussed taking on EMPTY stomach PRIOR to taking her other medications to help w/ volume management and will NOT adjust synthroid levels at present. Inquiring about length of stay -- discussed monitoring overnight and response to diuretics. Possible overnight sleep study/set of for O2 if able to be weaned today vs tomorrow but likely dc for Monday pending status. No chest pain but endorses shortness of breath. No fever/chills. Questions/concerns addressed at this time. Physical Exam Physical Exam: General: 72yo female resting in bed, NAD HEENT: head normocephalic, atraumatic, mmm, trachea midline, +JVD Resp: diminshed in the bases, faint expiratory wheezing posterior lung chaidez, ?rales, no crackles, on 2L NC CV: RRR, +systolic murmur, trace pedal edema, calves nontender/pulses palpable GI: +BS, slight distension/fullness, nontender : no [place] MSK/Neuro: no focal deficit/slurred speech, answering questions appropriately, following commands as able Psych: AOx3, cooperative with exam Results & Data Results & Data Vital Signs (Past 12 Hours) Vital Signs Temp Pulse Resp BP Pulse Ox Pulse Ox O2 Del Method 07/09/23 07:51 36.7 C 65 18 149/61 H 94 Nasal Cannula 07/09/23 03:59 36.5 C 55 L 18 153/70 H 96 Nasal Cannula 07/09/23 00:00 Nasal Cannula 07/08/23 22:50 36.3 C L 65 20 124/63 94 Nasal Cannula 07/08/23 22:44 89 L 07/08/23 21:52 Nasal Cannula O2 Del Method O2 Flow Rate 07/09/23 07:51 2 07/09/23 03:59 2 07/09/23 00:00 2 07/08/23 22:50 2 07/08/23 22:44 Room Air 07/08/23 21:52 3 Laboratory Results 07/09/23 07/09/23 07/09/23 Range/Units Unknown 08:28 08:25 WBC (4.8-10.8) K/ul RBC (4.20-5.40) M/uL Hgb (12.0-16.0) g/dl Hct (37.0-47.0) % MCV (80.0-100.0) fL MCH (25.0-34.0) pg MCHC (32.0-36.0) g/dL RDW Std Deviation (36.4-46.3) fL RDW Coeff of Jason (11.5-14.5) % Plt Count (130-400) K/uL MPV (9.4-12.4) fL Immature Gran % (Auto) % Neut % (Auto) % Lymph % (Auto) % [place] % (Auto) % Eos % (Auto) % Baso % (Auto) % Reticulocyte % (Auto) (0.5-2.0) % Neut # (Auto) (1.40-6.50) K/uL Lymph # (Auto) (1.20-3.40) K/uL [place] # (Auto) (0.11-0.59) K/uL Eos # (Auto) (0.00-0.50) K/uL Baso # (Auto) (0.00-0.20) K/uL Reticulocyte # (0.02-0.10) 10^6/uL Immature Gran # (Auto) (0.01-0.20) K/uL Ovalocytes ESR (0-30) mm/hr PT (9.0-12.0) Seconds INR (0.9-1.1) APTT (21.0-31.0) Seconds PTT Ratio Sodium (136-145) mmol/L Potassium (3.5-5.1) mmol/L Chloride (98-107) mmol/L Carbon Dioxide (21-32) mmol/L Anion Gap (3-11) BUN (6-23) mg/dl Creatinine (0.6-1.2) mg/dl Est Cr Clr Drug Dosing ml/min Est GFR ( Amer) ml/min Est GFR (Non-Af Amer) ml/min BUN/Creatinine Ratio (10-20) Glucose (70-99(Fasting)) mg/dl POC Glucose 130 H (70-99) mg/dl Estimat Average Glucose mg/dl Hemoglobin A1c (4.5-5.6) % Calcium (8.6-10.3) mg/dl Magnesium (1.7-2.4) mg/dl Iron 22 L TIBC 312 Unsaturated IBC 290 Transferrin % Sat 7 L Ferritin (8-388) ng/ml Total Bilirubin (0.2-1.0) mg/dl Direct Bilirubin 0.1 AST (13-39) U/L ALT (7-52) U/L Alkaline Phosphatase (34-104) U/L Troponin I High Sens (0-14) pg/ml C-Reactive Protein (0-0.5) mg/dl B-Natriuretic Peptide (0-100) pg/ml Total Protein (6.0-8.3) gm/dl Albumin (3.4-5.0) gm/dl Globulin (2.5-4.0) gm/dl Albumin/Globulin Ratio (0.9-2) Vitamin B12 (180-914) pg/ml 25-OH Vitamin D Total (30-100) ng/ml Folate (>5.38) ng/ml Procalcitonin (0-0.5) ng/ml TSH (0.300-4.500) uIu/ml Free T4 (0.61-1.60) ng/dl Urine Color Yellow Urine Appearance Clear (Clear) Urine pH 6.0 (4.5-7.5) Ur Specific [place] 1.021 (1.000-1.030) Urine Protein 1+ H (Negative) Urine Glucose (UA) Negative (Negative) Urine Ketones Negative (Negative) Urine Blood Negative (Negative) Urine Nitrite Negative (Negative) Urine Bilirubin Negative (Negative) Urine Urobilinogen Negative (Negative) Ur Leukocyte Esterase 2+ H (Negative) Urine WBC (Auto) >30 H (0-5) /hpf Urine RBC (Auto) 0-4 (0-4) /hpf U Hyaline Cast (Auto) 0 (0-5) /lpf U Epithel Cells (Auto) >30 H (0-5) /lpf Urine Bacteria (Auto) Negative (Negative) Ur Random Creatinine 113.7 mg/dl U Random Total Protein 48.7 H (0-11.9) mg/dl Protein/Creatinin Ratio 0.4 H (0-0.2) SARS-CoV-2 (PCR) (Negative) Influenza Type A (PCR) (Neg) Influenza Type B (PCR) (Neg) RSV (RT-PCR) (Neg) 07/09/23 07/09/23 07/08/23 Range/Units 08:24 06:51 20:02 WBC 10.33 (4.8-10.8) K/ul RBC 3.51 L (4.20-5.40) M/uL Hgb 9.0 L (12.0-16.0) g/dl Hct 28.3 L (37.0-47.0) % MCV 80.6 (80.0-100.0) fL MCH 25.6 (25.0-34.0) pg MCHC 31.8 L (32.0-36.0) g/dL RDW Std Deviation 52.2 H (36.4-46.3) fL RDW Coeff of Jason 18.1 H (11.5-14.5) % Plt Count 231 (130-400) K/uL MPV 11.5 (9.4-12.4) fL Immature Gran % (Auto) 0.3 % Neut % (Auto) 81.0 % Lymph % (Auto) 9.8 % [place] % (Auto) 5.6 % Eos % (Auto) 3.1 % Baso % (Auto) 0.2 % Reticulocyte % (Auto) 2.7 H (0.5-2.0) % Neut # (Auto) 8.37 H (1.40-6.50) K/uL Lymph # (Auto) 1.01 L (1.20-3.40) K/uL [place] # (Auto) 0.58 (0.11-0.59) K/uL Eos # (Auto) 0.32 (0.00-0.50) K/uL Baso # (Auto) 0.02 (0.00-0.20) K/uL Reticulocyte # 0.09 (0.02-0.10) 10^6/uL Immature Gran # (Auto) 0.03 (0.01-0.20) K/uL Ovalocytes ESR (0-30) mm/hr PT (9.0-12.0) Seconds INR (0.9-1.1) APTT (21.0-31.0) Seconds PTT Ratio Sodium 140 (136-145) mmol/L Potassium 3.7 (3.5-5.1) mmol/L Chloride 105 (98-107) mmol/L Carbon Dioxide 28 (21-32) mmol/L Anion Gap 7 (3-11) BUN 24 H (6-23) mg/dl Creatinine 1.02 (0.6-1.2) mg/dl Est Cr Clr Drug Dosing 49.7 ml/min Est GFR ( Amer) 62.8 ml/min Est GFR (Non-Af Amer) 54.1 ml/min BUN/Creatinine Ratio 23.5 H (10-20) Glucose 137 H (70-99(Fasting)) mg/dl POC Glucose (70-99) mg/dl Estimat Average Glucose 146 mg/dl Hemoglobin A1c 6.7 H (4.5-5.6) % Calcium 10.2 (8.6-10.3) mg/dl Magnesium 1.5 L (1.7-2.4) mg/dl Iron Cancelled TIBC Cancelled Unsaturated IBC Cancelled Transferrin % Sat Cancelled Ferritin 34.0 (8-388) ng/ml Total Bilirubin 0.4 (0.2-1.0) mg/dl Direct Bilirubin TNP AST 39 (13-39) U/L ALT 53 H (7-52) U/L Alkaline Phosphatase 77 (34-104) U/L Troponin I High Sens 47.9 H (0-14) pg/ml C-Reactive Protein (0-0.5) mg/dl B-Natriuretic Peptide (0-100) pg/ml Total Protein 6.4 (6.0-8.3) gm/dl Albumin 3.5 (3.4-5.0) gm/dl Globulin (2.5-4.0) gm/dl Albumin/Globulin Ratio (0.9-2) Vitamin B12 181 (180-914) pg/ml 25-OH Vitamin D Total 37.7 (30-100) ng/ml Folate 7.80 (>5.38) ng/ml Procalcitonin (0-0.5) ng/ml TSH 8.030 H (0.300-4.500) uIu/ml Free T4 0.66 (0.61-1.60) ng/dl Urine Color Urine Appearance (Clear) Urine pH (4.5-7.5) Ur Specific [place] (1.000-1.030) Urine Protein (Negative) Urine Glucose (UA) (Negative) Urine Ketones (Negative) Urine Blood (Negative) Urine Nitrite (Negative) Urine Bilirubin (Negative) Urine Urobilinogen (Negative) Ur Leukocyte Esterase (Negative) Urine WBC (Auto) (0-5) /hpf Urine RBC (Auto) (0-4) /hpf U Hyaline Cast (Auto) (0-5) /lpf U Epithel Cells (Auto) (0-5) /lpf Urine Bacteria (Auto) (Negative) Ur Random Creatinine mg/dl U Random Total Protein (0-11.9) mg/dl Protein/Creatinin Ratio (0-0.2) SARS-CoV-2 (PCR) (Negative) Influenza Type A (PCR) (Neg) Influenza Type B (PCR) (Neg) RSV (RT-PCR) (Neg) 07/08/23 Range/Units 17:30 WBC 9.35 (4.8-10.8) K/ul RBC 3.72 L (4.20-5.40) M/uL Hgb 9.7 L (12.0-16.0) g/dl Hct 30.6 L (37.0-47.0) % MCV 82.3 (80.0-100.0) fL MCH 26.1 (25.0-34.0) pg MCHC 31.7 L (32.0-36.0) g/dL RDW Std Deviation 52.7 H (36.4-46.3) fL RDW Coeff of Jason 17.9 H (11.5-14.5) % Plt Count 229 (130-400) K/uL MPV 10.6 (9.4-12.4) fL Immature Gran % (Auto) 0.5 % Neut % (Auto) 91.1 % Lymph % (Auto) 5.3 % [place] % (Auto) 2.8 % Eos % (Auto) 0.1 % Baso % (Auto) 0.2 % Reticulocyte % (Auto) (0.5-2.0) % Neut # (Auto) 8.51 H (1.40-6.50) K/uL Lymph # (Auto) 0.50 L (1.20-3.40) K/uL [place] # (Auto) 0.26 (0.11-0.59) K/uL Eos # (Auto) 0.01 (0.00-0.50) K/uL Baso # (Auto) 0.02 (0.00-0.20) K/uL Reticulocyte # (0.02-0.10) 10^6/uL Immature Gran # (Auto) 0.05 (0.01-0.20) K/uL Ovalocytes 1+ ESR 42 H (0-30) mm/hr PT 11.0 (9.0-12.0) Seconds INR 1.0 (0.9-1.1) APTT 25.4 (21.0-31.0) Seconds PTT Ratio 0.9 Sodium 136 (136-145) mmol/L Potassium 4.0 (3.5-5.1) mmol/L Chloride 105 (98-107) mmol/L Carbon Dioxide 21 (21-32) mmol/L Anion Gap 10 (3-11) BUN 21 (6-23) mg/dl Creatinine 1.14 (0.6-1.2) mg/dl Est Cr Clr Drug Dosing 45.9 ml/min Est GFR ( Amer) 54.9 ml/min Est GFR (Non-Af Amer) 47.3 ml/min BUN/Creatinine Ratio 18.4 (10-20) Glucose 269 H (70-99(Fasting)) mg/dl POC Glucose (70-99) mg/dl Estimat Average Glucose mg/dl Hemoglobin A1c (4.5-5.6) % Calcium 10.0 (8.6-10.3) mg/dl Magnesium 1.3 L (1.7-2.4) mg/dl Iron TIBC Unsaturated IBC Transferrin % Sat Ferritin (8-388) ng/ml Total Bilirubin 0.5 (0.2-1.0) mg/dl Direct Bilirubin AST 58 H (13-39) U/L ALT 63 H (7-52) U/L Alkaline Phosphatase 87 (34-104) U/L Troponin I High Sens 45.2 H (0-14) pg/ml C-Reactive Protein 15.91 H (0-0.5) mg/dl B-Natriuretic Peptide 652 H (0-100) pg/ml Total Protein 6.7 (6.0-8.3) gm/dl Albumin 3.7 (3.4-5.0) gm/dl Globulin 3.0 (2.5-4.0) gm/dl Albumin/Globulin Ratio 1.2 (0.9-2) Vitamin B12 (180-914) pg/ml 25-OH Vitamin D Total (30-100) ng/ml Folate (>5.38) ng/ml Procalcitonin 0.06 (0-0.5) ng/ml TSH (0.300-4.500) uIu/ml Free T4 (0.61-1.60) ng/dl Urine Color Urine Appearance (Clear) Urine pH (4.5-7.5) Ur Specific [place] (1.000-1.030) Urine Protein (Negative) Urine Glucose (UA) (Negative) Urine Ketones (Negative) Urine Blood (Negative) Urine Nitrite (Negative) Urine Bilirubin (Negative) Urine Urobilinogen (Negative) Ur Leukocyte Esterase (Negative) Urine WBC (Auto) (0-5) /hpf Urine RBC (Auto) (0-4) /hpf U Hyaline Cast (Auto) (0-5) /lpf U Epithel Cells (Auto) (0-5) /lpf Urine Bacteria (Auto) (Negative) Ur Random Creatinine mg/dl U Random Total Protein (0-11.9) mg/dl Protein/Creatinin Ratio (0-0.2) SARS-CoV-2 (PCR) NEGATIVE (Negative) Influenza Type A (PCR) Negative (Neg) Influenza Type B (PCR) Negative (Neg) RSV (RT-PCR) Negative (Neg) Diagnostic Findings Chest X-Ray 07/08/23 16:58 SINGLE VIEW CHEST CLINICAL HISTORY: Atypical chest pain FINDINGS: A PA chest radiograph is compared to study dated 02/25/2023 and correlated with chest CT dated 02/23/2023. The heart is enlarged. There is pulmonary vascular congestion. Chronic interstitial thickening and foci of parenchymal scarring are similar to previous Suspect trace pleural effusion. Mild bilateral airspace opacities are noted. These have significantly cleared as compared to 02/25/2023. No pneumothorax is seen. The skeletal structures are osteopenic. The bony thorax is grossly intact. Degenerative change and scoliosis is noted in the spine. IMPRESSION: 1. Cardiomegaly with pulmonary vascular congestion. 2. Mild bilateral airspace opacities are nonspecific and could be related to chronic lung disease, mild pulmonary edema, and/or an infectious/inflammatory pneumonitis. These have significantly cleared as compared to the 02/25/2023 examination. Radiographic follow-up to resolution is recommended. 3. Suspect small pleural effusions. ACT 112: Negative or not required by law. Electronically signed by: Epifanio Hugo M.D. 07/08/2023 7:32 PM PG Care Time/CCT Total # of Minutes Spent Total Time Spent with Patient: Total time spent is greater than 50% in coordination of care (as documented) at patient's floor/unit and/or counseling patient: Coding Level of Care Code 87122 SUB INP/OBS CARE MIN Diagnoses Acute on chronic heart failure with preserved ejection fraction I50.33 Acute on chronic respiratory failure with hypoxemia J96.21 LISBETH (obstructive sleep apnea) G47.33 NSIP (nonspecific interstitial pneumonitis) J84.89 T2DM (type 2 diabetes mellitus) E11.9 GERD (gastroesophageal reflux disease) K21.9 Anemia D64.9 Anemia type: unspecified type Hypercalcemia E83.52 Hypomagnesemia E83.42 (7) Anemia Anemia type: unspecified type Qualified Code(s): D64.9 - Anemia, unspecified
[2023-07-09 08:29] LABS: Alanine Aminotransferase 53 U/L (7-52); Albumin Level 3.5 gm/dl (3.4-5.0); Alkaline Phosphatase 77 U/L (34-104); Anion Gap 7 (3-11); Aspartate Aminotransferase 39 U/L (13-39); BUN Creatinine Ratio 23.5 (10-20); Bilirubin,Total 0.4 mg/dl (0.2-1.0); Blood Urea Nitrogen 24 mg/dl (6-23); Calcium 10.2 mg/dl (8.6-10.3); Carbon Dioxide 28 mmol/L (21-32); Chloride 105 mmol/L (98-107); Creatinine Clr Calc Pharmacy 49.7 ml/min; Est GFR (African American) 62.8 ml/min; Est GFR (Non-African American) 54.1 ml/min; Glucose 137 mg/dl (70-99(Fasting)); Magnesium 1.5 mg/dl (1.7-2.4); Potassium 3.7 mmol/L (3.5-5.1); Sodium 140 mmol/L (136-145); Total Protein 6.4 gm/dl (6.0-8.3)
[2023-07-09] MEDS: LOSARTAN POTASSIUM 50 MG TAB PO SCH (08:30)
[2023-07-09] MEDS: VENLAFAXINE HCL XR 150 MG CAPXR PO SCH (08:30)
[2023-07-09] MEDS: allopurinoL 100 MG TAB PO SCH (08:30)
[2023-07-09] MEDS: VIBEGRON 75 MG TAB PO SCH (08:30)
[2023-07-09] MEDS: OXYBUTYNIN CHLORIDE XL 5 MG TABCR PO SCH (08:30)
[2023-07-09] MEDS: SERTRALINE HCL 50 MG TABLET PO SCH (08:31)
[2023-07-09] MEDS: LEVOTHYROXINE SODIUM 100 MCG TABLET PO SCH (08:31)
[2023-07-09] MEDS: PANTOprazole 40 MG TAB PO SCH (08:31)
[2023-07-09] MEDS: predniSONE 10 MG TABLET PO SCH (08:31)
[2023-07-09] MEDS: VENLAFAXINE HCL XR 75 MG CAPXR PO SCH (08:31)
[2023-07-09 08:49] LABS: Estimated Average Glucose 146 mg/dl; Hemoglobin A1C 6.7 % (4.5-5.6)
[2023-07-09 08:56] LABS: Bilirubin Direct 0.1 mg/dl (0-0.2)
[2023-07-09] MEDS ORDERED: FUROSEMIDE 40 MG/4 ML VIAL IV SCH (09:00)
[2023-07-09 09:08] LABS: Thyroid Stimulating Hormone 8.03 uIu/ml (0.300-4.500)
[2023-07-09 09:19] LABS: Folate (Folic Acid),Ser orPlas 7.8 ng/ml (>5.38)
--- OUTSIDE RECORDS SUMMARY | 2023-07-09 09:29 | External Medical Summary | Summary of Care ---
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 Laborer Hide House Name Role Phone Ghassan Kahn DO Primary Care Provider [phone] Reason for Visit * Reason Comments Urinary Tract Infection Symptoms Encounter Details Date Type Department Care Team Description 05/07/2023 Convenient Care Visit [facility] [address] [address] Ramya Montanez PA-C [address] [id number] Dysuria* Allergies Active Allergy Reactions Severity Noted Date Comments Beta Adrenergic Blockers Other (Please comment) 04/11/2022 Extreme fatigue documented as of this encounter (statuses as of 05/10/2023) Medications Medication Sig Dispensed Refills Start Date End Date Status EFFEXOR XR 150 MG PO CP24 1 CAPSULE DAILY WITH FOOD 0 12/26/2012 Active EFFEXOR XR 75 MG PO CP24 1 CAPSULE DAILY WITH FOOD 0 12/26/2012 Active PRAMIPEXOLE DIHYDROCHLORIDE 0.25 MG PO TABS Take by mouth at bedtime . 0 12/26/2012 Active BENICAR HCT 20-12.5 MG PO TABS 1 TABLET DAILY 0 12/26/2012 Active LEVOTHYROXINE SODIUM 100 MCG OR TABS 1 TABLET DAILY 0 12/26/2012 Activ e MELOXICAM 15 MG PO TABS 1 TABLET DAILY 0 12/26/2012 Active latanoprost (XALATAN) 0.005 % ophthalmic solution Instill 1 Drop into both eyes in the morning. 3 03/03/2015 Active pravastatin (PRAVACHOL) 20 MG Tablet Take 1 Tablet by mouth at bedtime. 2 02/23/2015 Active magic swizzle (MAGIC MOUTHWASH) 15 MLIndications:Tongue burning sensation (1:1:1 Mix equal parts Maalox/Benadryl/L idocaine) Gargle 1 tsp and spit every 6 hours as needed for mouth pain 120 mL 0 01/29/2019 Active Additional Information Patient not taking.Reported on 05/07/2023 Sertraline HCl 100 MG Oral Tablet (Zoloft) Take 1 Tablet by mouth in the morning. 0 Active Dulaglutide 0.75 MG/0.5ML Subcutaneous Solution Pen-injector ([employer]) Inject 0.75 mg under the skin once a week. Monday evening 0 Active metFORMIN HCl 500 MG Oral Tablet (Glucophage) Take 1 Tablet by mouth 2 times a day with morning and evening meals. 0 Active Myrbetriq 50 MG Oral Tablet Extended Release 24 Hour (Mirabegron ER) Take 1 Tablet by mouth in the morning. 0 Active Solifenacin Succinate 5 MG Oral Tablet Take 1 Tablet by mouth in the morning. 0 Active Allopurinol 100 MG Oral Tablet (Zyloprim) Take 1 Tablet by mouth in the morning. 0 Active Estradiol 0.1 MG/GM Vaginal Cream Administer 2 g into the vagina in the morning. Use for 23 days, stop 5 days . 0 Active Calcium 500-125 MG-UNIT Oral Tablet Take by mouth 1 Tablet in the morning. 0 Active Omeprazole 20 MG Oral Tablet Delayed Release Take 1 Tablet by mouth in the morning. 0 Active hydrOXYzine Pamoate 25 MG Oral Capsule (Vistaril) Take 1 Capsule by mouth in the morning and 1 Capsule before bedtime. Use for anxiety . 0 Active Cefdinir 300 MG Oral Capsule (Omnicef)Indications: Dysuria Take 1 Capsule by mouth in the morning and 1 Capsule before bedtime. Do all this for 7 days. 14 Capsule 0 05/07/2023 3 Active documented as of this encounter (statuses as of 05/10/2023) Active Problems No known active problems documented as of this encounter (statuses as of 05/10/2023) Immunizations Name Administration Dates Next Due PPD 12/24/2017,04/19/2017 TDAP (age 10 and older)(Boostrix) 07/11/2013 07/11/2023 documented as of this encounter Social History Tobacco Use Types Packs/Day Years Used Date Smoking Tobacco: Never Smokeless Tobacco: Never Tobacco Cessation:Counseling Given: Not Answered Alcohol Use Standard Drinks/Week Comments Yes 0 (1 standard drink = 0.6 oz pur e alcohol) occ Sex Assigned at Date Recorded Not on file Job Start Date Occupation Industry Not on file Not on file Not on file documented as of this encounter Last Filed Vital Signs Vital Sign Reading Time Taken Comments Blood Pressure 132/76 05/07/2023 4:20 PM EDT Pulse 74 05/07/2023 4:20 PM EDT Temperature 36.1 C (97 F) 05/07/2023 4:20 PM EDT Respiratory Rate - - Oxygen Saturation 96% 05/07/2023 4:20 PM EDT Inhaled Oxygen Concentration - - Weight - - Height - - Body Mass Index - - documented in this encounter Patient Instructions * Patient Instructions* Ramya Montanez PA-C - 05/07/2023 5:27 PM EDT Drink plenty of fluids, increase intake over next 48-72 hours. Take all medications as prescribed, even if you are feeling better sooner. We will notify you of your urine culture results. F/U with PCP with no improvement in 3-5 days. Go immediately to the ED with any change or worsening symptoms including chills, fevers, back pain. documented in this encounter Progress Notes * Ramya Montanez PA-C - 05/07/2023 4:31 PM EDT CONVENIENT CARE PROGRESS NOTE Ketty Hernández is a 72 year old female who presents with urinary tract symptoms. Patient complains of dysuria, urinary frequency x 1 week Patient was accompanied by self. Reports hx of UTIs in the past ( last UTI years ago). denies hx of kidney stones. no blood in urine. no fever, chills, upper back pain. no chance of . no new sexual partners or concern for STD's. no genital itching, discharge or bleeding. Constitutional: no fever, chills, sweats, or fatigue Patient notes that she is on two medications for her small bladder. When she is out of one she has more incontinence. This happened for a week when symptoms began. Nursing Notes: Beulah Roldan LPN 05/07/23 0075 Sign at exiting of workspace Ketty Hernández is a 72 year old female who presents to walk-in clinic today complaining of Chief Complaint Patient presents with Urinary Tract Infection Symptoms Main Symptoms: smaller amounts of urine and has pain at the end of urination and back pain as well and is low in her back Cause: unknown How long: one week Tried: no OTC medications Pt accompanied by: Self ROS: All others negative other than those noted in HPI HISTORY: Past Medical History: Diagnosis Date Depression GERD (gastroesophageal reflux disease) Hypertension Hypothyroidism Insomnia Past Surgical History: Procedure Laterality Date COLONOSCOPY, DIAGNOSTIC (RECTUM) 04/15/2022 benign adenomatous polyps,diverticulosis, repeat 3 yrs / COLONOSCOPY FLEXIBLE PROXIMAL DIAGNOSTIC performed by Doris Vazquez MD at [facility] Social History Socioeconomic History Marital status: Spouse name: Not on file Number of children: Not on file Years of education: Not on file Highest education level: Not on file Occupational History Not on file Tobacco Use Smoking status: Never Smokeless tobacco: Never Substance and Sexual Activity Alcohol use: Yes Comment: occ Drug use: No Sexual activity: Not on file Other Topics Concern Not on file Social History Narrative Not on file Social Determinants of Health Financial Resource Strain: Not on file Food Insecurity: Not on file Transportation Needs: Not on file Physical Activity: Not on file Stress: Not on file Social Connections: Not on file Intimate Partner Violence: Not on file Housing Stability: Not on file Current Outpatient Medications Medication Sig Dispense Refill EFFEXOR XR 150 MG PO CP24 1 CAPSULE DAILY WITH FOOD EFFEXOR XR 75 MG PO CP24 1 CAPSULE DAILY WITH FOOD PRAMIPEXOLE DIHYDROCHLORIDE 0.25 MG PO TABS Take by mouth at bedtime . BENICAR HCT 20-12.5 MG PO TABS 1 TABLET DAILY LEVOTHYROXINE SODIUM 100 MCG OR TABS 1 TABLET DAILY MELOXICAM 15 MG PO TABS 1 TABLET DAILY latanoprost (XALATAN) 0.005 % ophthalmic solution Instill 1 Drop into both eyes in the morning. 3 pravastatin (PRAVACHOL) 20 MG Tablet Take 1 Tablet by mouth at bedtime. 2 Sertraline HCl 100 MG Oral Tablet (Zoloft) Take 1 Tablet by mouth in the morning. Dulaglutide 0.75 MG/0.5ML Subcutaneous Solution Pen-injector ([employer]) Inject 0.75 mg under the skin once a week. Monday evening metFORMIN HCl 500 MG Oral Tablet (Glucophage) Take 1 Tablet by mouth 2 times a day with morning andevening meals. Myrbetriq 50 MG Oral Tablet Extended Release 24 Hour (Mirabegron ER) Take 1 Tablet by mouth in the morning. Solifenacin Succinate 5 MG Oral Tablet Take 1 Tablet by mouth in the morning. Allopurinol 100 MG Oral Tablet (Zyloprim) Take 1 Tablet by mouth in the morning. Estradiol 0.1 MG/GM Vaginal Cream Administer 2 g into the vagina in the morning. Use for 23 days, stop 5 days . Calcium 500-125 MG-UNIT Oral Tablet Take by mouth 1 Tablet in the morning. Omeprazole 20 MG Oral Tablet Delayed Release Take 1 Tablet by mouth in the morning. hydrOXYzine Pamoate 25 MG Oral Capsule (Vistaril) Take 1 Capsule by mouth in the morning and 1 Capsule before bedtime. Use for anxiety . Cefdinir 300 MG Oral Capsule (Omnicef) Take 1 Capsule by mouth in the morning and 1 Capsule before bedtime. Do all this for 7 days. 14 Capsule 0 magic swizzle (MAGIC MOUTHWASH) 15 ML (1:1:1 Mix equal parts Maalox/Benadryl/Lidocaine) Gargle 1 tsp and spit every 6 hours as needed for mouth pain (Patient not taking: Reported on 04/11/2022) 120 mL0 No current facility-administered medications for this visit. Review of patient's allergies indicates: Allergen Reactions Beta Adrenergic Blockers Other (Please comment) Extreme fatigue No family history on file. OBJECTIVE: BP 132/76 | Pulse 74 | Temp 36.1 C (97 F) (Tympanic) | SpO2 96% Wt Readings from Last 1 Encounters: 04/15/22 88.9 kg (196 lb) General appearance: awake, alert, no apparent distress Abdominal Exam: back: no CVA tenderness and abd: +suprapubic tenderness to palpation, no R/R/G, +BS Respiratory: clear to auscultation, no rhonchi, no wheezes, and no crackles Heart: regular rate, regular rhythm, no murmurs , no rubs, and no gallops Skin/Integumentary: Exposed skin without rashes or lesions. Results for orders placed or performed in visit on 05/07/23 URINALYSIS, POINT OF CARE (ENTER/EDIT) Result Value Ref Range Color, Urine Light Yellow Yellow or Light Yellow Clarity, Urine Slightly Cloudy Clear Glucose, Urine Negative Negative mg/dL Bilirubin, Urine Negative Negative Ketone, Urine Negative Negative mg/dL Specific [place], Urine 1.020 1.003 - 1.030 Blood, Urine Small Negative pH, Urine 5.5 5.0 - 7.5 units Protein, Urine 100 Negative mg/dL Urobilinogen, Urine 0.2 0.2 - 1.0 mg/dL Nitrite, Urine Negative Negative Esterase, Urine Small Negative Patient Instructions Drink plenty of fluids, increase intake over next 48-72 hours. Take all medications as prescribed, even if you are feeling better sooner. We will notify you of your urine culture results. F/U with PCP with no improvement in 3-5 days. Go immediately to the ED with any change or worsening symptoms including chills, fevers, back pain. Assessment: Dysuria (Primary) - URINALYSIS, POINT OF CARE (ENTER/EDIT) - CULTURE, URINE, QUANTITATIVE; Future; Expected date: 05/07/2023 - Cefdinir 300 MG Oral Capsule (Omnicef); Take 1 Capsule by mouth in the morning and 1 Capsule before bedtime. Do all this for 7 days. - CULTURE, URINE, QUANTITATIVE Will treat for symptoms of UTI. To get culture guide therapy. Will contact with culture results. Spoke about preventative measures. Spoke about risk of nephrolithiasis and secondary work up for this. Deferred at this time. Care instructions given. Additional instructions per patient instructions attached. Follow up with PCP in 3-5 days if symptoms persist. Reasons to go to ED discussed with patient including but not limited to development of acute or severe symptoms. Patient agrees with the plan and demonstrates verbal understanding. Patient stable at the time of discharge. Patient goals for plan of care were discussed Ramya Montanez PA-C [address] [place] [address] documented in this encounter Nursing Notes * Beulah Roldan LPN - 05/07/2023 4:18 PM EDT Ketty Hernández is a 72 year old female who presents to walk-in clinic today complaining of Chief Complaint Patient presents with Urinary Tract Infection Symptoms Main Symptoms: smaller amounts of urine and has pain at the end of urination and back pain as well and is low in her back Cause: unknown How long: one week Tried: no OTC medications Pt accompanied by: Self documented in this encounter Plan of Treatment Scheduled Procedures Name Priority Associated Diagnoses Date/Ti me COLONOSCOPY FLEXIBLE PROXIMAL DIAGNOSTIC Recall History of colon polyps Health Maintenance Due Date Last Done Comments DXA Scan 1950 Lipid Panel 1948 COVID-19 Vaccine (#1) 04[birth year]14/1951 Pneumococcal Vaccine: 65+ Years (1 - PCV) 1954 Depression Screening 1960 Hepatitis C Screening 1966 TSH 1966 Mammogram 1988 Zoster Vaccines (1 of 2) 1998 *ADVANCE DIRECTIVE NOT ON FILE 09/11/2014 Influenza Vaccine (FLU shot) (#1) 2023 DTaP,Tdap,and Td Vaccines (2 - Td or Tdap) 07/11/2023 07/11/2013 COLONOSCOPY-EVERY 3 YRS AGES 18-100 04/15/2025 04/15/2022, 04/15/2022 Colonoscopy Discontinued 04/15/2022, 04/15/2022 Colorectal Cancer Screening Discontinued Cologuard Discontinued Fecal Occult Blood Test Discontinued GARDASIL-HPV IMMUNIZATION SERIES Aged Out No longer eligible based on patient's age to complete this topic Hepatitis B Aged Out No longer eligi ble based on patient's age to complete this topic MENINGOCOCCAL (MENACTRA/MENVEO) Aged Out No longer eligible based on patient's age to complete this topic Sigmoidoscopy Discontinued documented as of this encounter Medical Devices Not on filedocumented as of this encounter Procedures Procedure Name Priority Date/Time Associated Diagnosis Comments CULTURE, URINE, QUANTITATIVE Routine 05/07/2023 5:22 PM EDT Dysuria URINALYSIS, POINT OF CARE (ENTER/EDIT) Routine 05/07/2023 Dysuria documented in this encounter Results * (ABNORMAL) CULTURE, URINE, QUANTITATIVE (05/07/2023 5:22 PM EDT) Culture Growth >100,000 colonies/mL Escherichia coli(A) MICROBROTH DILUTIONS 05/09/2023 2:15 PM EDT [facility] Urine Urine specimen obtained by clean catch procedure / Unknown Non-blood Collection / Unknown 05/07/2023 5:22 PM EDT 05/07/2023 5:22 PM EDT Narrative [facility] - 05/09/2023 2:15 PM EDT <10,000 colonies/ml mixed normal ric Organism Antibiotic Method Susceptibility Escherichia coli Ampicillin MICROBROTH DILUTIONS 8: Susceptible Escherichia coli Cefazolin MICROBROTH DILUTIONS <=4: Susceptible Escherichia coli Cefepime MICROBROTH DILUTIONS <=1: Susceptible Escherichia coli Ceftriaxone MICROBROTH DILUTIONS <=1: Susceptible Escherichia coli Ciprofloxacin MICROBROTH DILUTIONS <=0.25: Susceptible Comment:Due to curt us side effects, the FDA has advised against using Ciprofloxacin to treat uncomplicated UTIs and respiratory tract infections unless there are no alternative treatment options. Escherichia coli Gentamicin MICROBROTH DILUTIONS <=1: Susceptible Escherichia coli Nitrofurantoin MICROBROTH DILUTIONS <=16: Susceptible Escherichia coli Piperacillin Tazobactam MICROBROTH DI LUTIONS <=4: Susceptible Escherichia coli Trimeth/Sulfamethoxazole MICROBROTH D ILUTIONS <=20: Susceptible Ramya Montanez PA-C LAB MICRO - GENERAL ORDERABLES [facility] [address] [facility] [address] * URINALYSIS, POINT OF CARE (ENTER/EDIT) (05/07/2023) Color, Urine Light Yellow Yellow or Light Yellow Clarity, Urine Slightly Cloudy Clear Glucose, Urine Negative Negative mg/dL Bilirubin, Urine Negative Negative Ketone, Urine Negative Negative mg/dL Specific [place], Urine 1.020 1.003 - 1.030 Blood, Urine Small Negative pH, Urine 5.5 5.0 - 7.5 units Protein, Urine 100 Negative mg/dL Urobilinogen, Urine 0.2 0.2 - 1.0 mg/dL Nitrite, Urine Negative Negative Esterase, Urine Small Negative Urine 05/07/2023 Ramya RODRIGUEZC LAB POINT OF CARE TEST ENTER/EDIT ORDERABLES documented in this encounter Visit Diagnoses Diagnosis Dysuria- Primary documented in this encounter Care Teams 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
--- OUTSIDE RECORDS SUMMARY | 2023-07-09 09:29 | External Medical Summary | Summary of Care ---
Author Name Unknown Organization [facility] Address [address] [facility] [place] [address] Phone [phone] Care Team Providers Care Web Services Professional Name Role Phone Ghassan Kahn DO Primary Care Provider [phone] Reason for Visit * Reason Onset Date Comments Test Results 05/09/2023 Encounter Details Date Type Department Care Team Description [facility] [address] [facility] [place] [address] Jose Kahn PA-C [address] [employer] [place], [place] [id number] Test Results Allergies Active Allergy Reactions Severity Noted Date [...] Active Dulaglutide 0.75 MG/0.5ML Subcutaneous Solution Pen-injector ([employer]) Inject 0.75 mg under the skin once [...] Date Smoking Tobacco: Never Smokeless Tobacco: Never Alcohol Use Standard Drinks/Week Comments Yes 0 (1 standard drink = 0.6 oz pur e alcohol) occ Sex Assigned at Date Recorded Not on file Job Start Date Occupation Industry Not on file Not on file Not on file documented as of this encounter Miscellaneous Notes * Telephone Encounter - Beulah Roldan LPN - 05/10/2023 3:09 PM EDT Was not able to leave a message due to mailbox being full. * Telephone Encounter - Emi Martinez LPN - 05/09/2023 7:50 PM EDT LMOM to return call for results * Telephone Encounter - Jose Kahn PA-C - 05/09/2023 6:32 PM EDT Please advise the patient that their urine culture is back, and the bacteria in their urine is sensitive to the antibiotic prescribed (Cefdinir). Recommend finishing full course of antibiotics. With no improvement or any persistent symptoms follow-up with primary care provider. Thank you! Jose Kahn PA-C documented in this encounter Plan of Treatment [...] Not on filedocumented as of this encounter Care Teams Web Services Professional Relationship Specialty Start Date End Date Ghassan Kahn, [address] [facility] [address] [place] [address] PCP - General Internal Medicine 11/12/12 documented as of this encounter
--- OUTSIDE RECORDS SUMMARY | 2023-07-09 09:29 | External Medical Summary ---
Author Name Unknown Address Unknown Organization K01:LABORATORY [facility] - [address] [facility] [address] Laboratory Report Ordering Provider Test Date Status CARLY SYED 05/07/2023 17:22:55 Final <10,000 colonies/ml mixed no rmal rci Observation Date Value Abnormality Reference (Units ) Status Bacteria identified in Specimen by Culture 05/07/2023 17:22:55 [id number]^ESCHE RICHIA COLI Abnormal Final >100,000 colonies/mL Escheri adam coli Performing Location LABORATORY [facility] - [address] [facility] [address] Ordering Provider Test Date Status CARLY SYED 05/07/2023 17:22:55 Final Observation Date Value Abnormality Reference (Units ) Status Ampicillin 05/07/2023 17:22:55 8 Susceptible Final Cefazolin 05/07/2023 17:22:55 <=4 Susceptible Final Cefepime susceptibility 05/07/2023 17:22:55 <=1 Susceptible Final Ceftriaxone suceptibility 05/07/2023 17:22:55 <=1 Susceptible Final Ciprofloxacin 05/07/2023 17:22:55 <=0.25 Susceptible Final Due to serious side effects, the FDA has advised against using Ciprofloxacin to treat uncomplicated UTIs and respiratory tract infections unless there are no alternative treatment options. Gentamicin susceptibility 05/07/2023 17:22:55 <=1 Susc eptible Final Nitrofurantoin susceptibility 05/07/2023 17:22:55 <=16 Susceptible Final Piperacillin + Tazobactamsusceptibility 05/07/2023 17:22:55 <=4 Susceptible Final TMP-SMZ susceptibility 05/07/2023 17:22:55 <=20 Suscept ible Final Test: Culture, Urine, Quanti tative
Specimen Source: Urine, Clean Catch
Specimen Type: Urine
Specimen Date: 05/07/2023 5:22 PM
Result Date: 05/09/2023 2:15 PM
Result Status: Final result
Abnormal: Yes
Resulting Lab: LABORATORY [facility]
[address] [facility] [address]

CULTURE

>100,000 colonies/mL Escherichia coli (Abnormal)

<10,000 colonies/ml mixed normal ric

SUSCEPTIBILITY

Escherichia coli
METHOD MICROBROTH DILUTIONS

AMPICILLIN 8 Susceptible
CEFAZOLIN <=4 Susceptible
CEFEPIME <=1 Susceptible
CEFTRIAXONE <=1 Susceptible
CIPROFLOXACIN <=0.25 Susceptible [1]
GENTAMICIN <=1 Susceptible
NITROFURANTOIN <=16 Susceptible
PIPERACILLIN TAZOBACTAM <=4 Susceptible
TRIMETH/SULFAMETHOXAZOLE <=20 Susceptible

[1] Due to serious side effects, the FDA has advised against using
Ciprofloxacin to treat uncomplicated UTIs and respiratory tract infections
unless there are no alternative treatment options.

null Performing Location LABORATORY [facility] - [address] [facility] [address]
--- OUTSIDE RECORDS SUMMARY | 2023-07-09 09:29 | External Medical Summary | Summary of Care ---
Author Name Unknown Organization [facility] Address [address] [facility] [place] [address] Phone [phone] Care Team Providers Care Creeler Name Role Phone Ghassan Kahn DO Primary Care Provider [phone] Reason for Visit * Reason Comments Urinary Tract Infection Symptoms Encounter Details Date Type Department Care Team Description 05/07/2023 Convenient Care Visit [facility] [address] [address] [address] Ramya Montanez PA-C [address] [phone] Dysuria* Allergies Active Allergy Reactions Severity Noted Date Comments Beta Adrenergic Blockers Other (Please comment) 04/11/2022 Extreme fatigue documented as of this encounter (statuses as of 05/07/2023) Medications Medication Sig Dispensed Refills Start Date [...] Active Dulaglutide 0.75 MG/0.5ML Subcutaneous Solution Pen-injector ([employer]) Inject 0.75 mg under the skin once [...] as of this encounter (statuses as of 05/07/2023) Active Problems No known active problems documented as of this encounter (statuses as of 05/07/2023) Immunizations Name Administration Dates Next Due PPD [...] began. Nursing Notes: Beulah Roldan LPN 05/07/23 6465 Sign at exiting of workspace Ketty Hernández [...] performed by Doris Vazquez MD at [facility] Social History Socioeconomic History Marital status: Spouse [...] morning. Dulaglutide 0.75 MG/0.5ML Subcutaneous Solution Pen-injector ([employer]) Inject 0.75 mg under the skin once [...] Negative Ketone, Urine Negative Negative mg/dL Specific [place], Urine 1.020 1.003 - 1.030 Blood, Urine [...] of care were discussed Ramya Montanez PA-C [address] [place] [address] documented in this encounter Nursing Notes * [...] documented in this encounter Plan of Treatment Pending Results Name Type Priority Associated Diagnoses Date /Time CULTURE, URINE, QUANTITATIVE Lab Routine Dysuria 05/07/2023 5:22 PM EDT Scheduled Orders Name Type Priority Associated Diagnoses Orde r Schedule CULTURE, URINE, QUANTITATIVE Lab Routine Dysuria Expected: 05/07/2023, Expires: 05/07/2024 Scheduled Procedures Name Priority Associated Diagnoses Date/Ti [...] Procedure Name Priority Date/Time Associated Diagnosis Comments URINALYSIS, POINT OF CARE (ENTER/EDIT) Routine 05/07/2023 Dysuria documented in this encounter Results * URINALYSIS, POINT OF CARE (ENTER/EDIT) (05/07/2023) Color, Urine Light Yellow Yellow or Light Yellow Clarity, Urine Slightly Cloudy Clear Glucose, Urine Negative Negative mg/dL Bilirubin, Urine Negative Negative Ketone, Urine Negative Negative mg/dL Specific [place], Urine 1.020 1.003 - 1.030 Blood, Urine Small Negative pH, Urine 5.5 5.0 - 7.5 units Protein, Urine 100 Negative mg/dL Urobilinogen, Urine 0.2 0.2 - 1.0 mg/dL Nitrite, Urine Negative Negative Esterase, Urine Small Negative Urine 05/07/2023 Ramya Montanez PA-C LAB POINT OF CARE TEST ENTER/EDIT ORDERABLES documented in this encounter Visit Diagnoses Diagnosis Dysuria- Primary documented in this encounter Care Teams Creeler Relationship Specialty Start Date End Date Ghassan Kahn DO [address] [place] [address] PCP - General Internal Medicine 11/12/12 documented as of this encounter"
--- OUTSIDE RECORDS SUMMARY | 2023-07-09 09:29 | External Medical Summary | Summary of Care ---
Author Name Unknown Organization [facility] Address [address] [facility] [address] Phone [phone] Care Team Providers Care Power Generating Plant Operator Name Role Phone Ghassan Kahn DO Primary Care Provider [phone] Encounter Details Date Type Department Care Team Description 05/09/2023 Telephone [facility] [place] [address] Jose Kahn PA-C [address] [place] [address] Allergies Active Allergy Reactions Severity Noted Date Comments Beta Adrenergic Blockers Other (Please comment) 04/11/2022 Extreme fatigue documented as of this encounter (statuses as of 05/09/2023) Medications Medication Sig Dispensed Refills Start Date [...] Active Dulaglutide 0.75 MG/0.5ML Subcutaneous Solution Pen-injector (Finale Desserts) Inject 0.75 mg under the skin once [...] as of this encounter (statuses as of 05/09/2023) Active Problems No known active problems documented as of this encounter (statuses as of 05/09/2023) Immunizations Name Administration Dates Next Due PPD [...] encounter Miscellaneous Notes * Telephone Encounter - Jose Kahn PA-C [...] filedocumented as of this encounter Care Teams Power Generating Plant Operator Relationship Specialty Start Date End Date Ghassan Kahn, [address] [facility] [address] PCP - General Internal Medicine 11/12/12 documented as of this encounter
--- OUTSIDE RECORDS SUMMARY | 2023-07-09 09:29 | External Medical Summary | Summary of Care ---
Author Name Unknown Organization [facility] Address [address] [facility] [place] [address] Phone [phone] Care Team Providers Care Knot Borer Name Role Phone Ghassan Kahn DO Primary Care Provider [phone] Reason for Visit * Reason Onset Date Comments Test Results 05/09/2023 Encounter Details Date Type Department Care Team Description [facility] [address] [facility] [place] [address] Jose Kahn PA-C [address] [place], [place] [id number] Test Results Allergies Active Allergy Reactions Severity [...] Active Dulaglutide 0.75 MG/0.5ML Subcutaneous Solution Pen-injector (Gist) Inject 0.75 mg under the skin once [...] encounter Miscellaneous Notes * Telephone Encounter - Artur Valdes LPN - 05/10/2023 4:30 PM EDT Spoke to patient verifying her name and , I let her know the antibiotic was good at treating herUTI. * Telephone Encounter - Beulah Roldan LPN [...] filedocumented as of this encounter Care Teams Knot Borer Relationship Specialty Start Date End Date Ghassan Kahn DO [address] [facility] [address] PCP - General Internal Medicine 11/12/12 documented as of this encounter
--- OUTSIDE RECORDS SUMMARY | 2023-07-09 09:29 | External Medical Summary | Summary of Care ---
Author Name Unknown Organization [facility] Address [address] [facility] [place] [address] Phone [phone] Care Team Providers Care Wall Man Name Role Phone Ghassan Kahn DO Primary Care Provider [phone] Reason for Visit * Reason Onset Date Comments Test Results 05/09/2023 Encounter Details Date Type Department Care Team Description [facility] [place] [address] Jose Kahn PA-C [address] [place], [place] [id number] Test Results Allergies Active Allergy Reactions Severity [...] Active Dulaglutide 0.75 MG/0.5ML Subcutaneous Solution Pen-injector (Toywheel) Inject 0.75 mg under the skin once [...] encounter Miscellaneous Notes * Telephone Encounter - Emi Martinez LPN [...] filedocumented as of this encounter Care Teams Wall Man Relationship Specialty Start Date End Date Ghassan Kahn, [address] [facility] [place] [address] PCP - General Internal Medicine 11/12/12 documented as of this encounter
[2023-07-09] MEDS ORDERED: IRON SUCROSE 200 MG in 0.9 % SODIUM CHLORIDE 100 ML IV ONE (09:45)
[2023-07-09 09:53] LABS: T4 Free Thyroxine 0.66 ng/dl (0.61-1.60)
[2023-07-09 09:59] LABS: Appearance Urine Clear (Clear); Bacteria Urine Automated Negative (Negative); Bilirubin Urine Negative (Negative); Blood Urine Negative (Negative); Cast Urine Automated 0 /lpf (0-5); Color Urine Yellow; Epithelial Cell Urine Auto >30 /lpf (0-5); Glucose Urine UA Negative (Negative); Ketones Urine Negative (Negative); Leukocyte Esterase Urine 2+ (Negative); Nitrite Urine Negative (Negative); Protein Urine 1+ (Negative); RBC Urine Automated 0-4 /hpf (0-4); Specific Gravity Urine 1.021 (1.000-1.030); Urobilinogen Urine Negative (Negative); WBC Urine Automated >30 /hpf (0-5)
[2023-07-09 10:22] LABS: Total Protein Urine Random 48.7 mg/dl (0-11.9)
[2023-07-09 10:28] LABS: Creatinine Urine Random 113.7 mg/dl; Protein Creatinine Ratio Urine 0.4 (0-0.2)
[2023-07-09] MEDS: MAGNESIUM SULFATE / D5W 1 GM/100 ML BAG IV SCH ×2 (10:50→13:44)
[2023-07-09] MEDS ORDERED: CYANOCOBALAMIN 1000 MCG/ML VIAL IM ONE (10:53)
[2023-07-09] MEDS: INSULIN ASPART PER UNIT CHARGE SC SCH ×4 (11:06→22:23)
[2023-07-09] MEDS: ACETAMINOPHEN 325 MG TAB PO PRN (14:44)
[2023-07-09] MEDS: FUROSEMIDE 40 MG/4 ML VIAL IV SCH (17:03)
[2023-07-09] MEDS ORDERED: MoRPHine SULFATE 2 MG/ML CARP IV STA (21:04)
[2023-07-09] MEDS: LATANOPROST 0.005% OP SOLN 2.5 ML BTL OPB SCH ×2 (22:49)
[2023-07-10] MEDS: PANTOprazole 40 MG TAB PO SCH (06:13)
[2023-07-10] MEDS: LEVOTHYROXINE SODIUM 100 MCG TABLET PO SCH (06:13)
[2023-07-10 07:29] LABS: Basophils # (auto) 0.03 K/uL (0.00-0.20); Basophils % (auto) 0.3 %; Eosinophils % (auto) 4.3 %; Hematocrit (blood only) 31.6 % (37.0-47.0); Hemoglobin 9.9 g/dl (12.0-16.0); Immature Granulocytes # (auto) 0.05 K/uL (0.01-0.20); Immature Granulocytes % (auto) 0.5 %; Lymphocytes # (auto) 1.38 K/uL (1.20-3.40); Lymphocytes % (auto) 14.7 %; Mean Corpuscular Hemoglobin 26.1 pg (25.0-34.0); Mean Corpuscular Hgb Conc 31.3 g/dL (32.0-36.0); Mean Corpuscular Volume 83.4 fL (80.0-100.0); Mean Platelet Volume 10.9 fL (9.4-12.4); Monocytes # (auto) 0.61 K/uL (0.11-0.59); Monocytes % (auto) 6.5 %; Neutrophils # (auto) 6.94 K/uL (1.40-6.50); Neutrophils % (auto) 73.7 %; Platelet Count 265 K/uL (130-400); RDW Coefficient of Variation 17.8 % (11.5-14.5); RDW Standard Deviation 53.9 fL (36.4-46.3); Red Blood Count 3.79 M/uL (4.20-5.40); White Blood Count 9.41 K/ul (4.8-10.8)
--- NOTE | 2023-07-10 07:55 | Hospitalist Progress Note ---
Date of Service July 10, 2023 Assessment & Plan (1) Acute on chronic heart failure with preserved ejection fraction: Plan: Secondary to recently stopping Lasix Start Lasix 40mg IV daily Strict I&Os Daily weights Low Na, fluid restricted diet Multifactorial: suspect given prior use 20mg PO lasix not effective, also not taking Synthroid on empty stomach (taking with other AM medications), recent NSAID use w/ worsening renal failure/anemia, as well as hypomagnesemia (appears chronic in nature) contributing, untreated sleep apnea/diastolic heart failure (to have CPAP, not yet arranged per patient) and recently stopping her diuretics Will NOT adjust synthroid given such at present but rec to take on empty stomach/alone and repeat TFT outpatient. Lasix increased to 40mg IV BID 07/09, changed back to once daily for today (also got several bags IV mag/venofer yesterday) Suspect able to dc on PO lasix at discharge Low salt diet, 1500cc fluid restriction -- note patient likes to eat hoagies, instructed to follow low salt diet/limit such Mag 1.5, IV replacement and normalized on repeat Weights down, appearing closer to baselined Monitor I&O, weight in AM CHF clinic consulted -- see note, outpatient follow up Repeat limited ECHO to eval EF (Prior in December w/ EF 60-65%, mild MR, elevated RVSP 40-50%, grade II diastolic dysfunction). Working on getting CPAP at dc CM to assist w/ reaching out to PCP office in AM to see about her most recent sleep study/CPAP (needed CPAP in past but didn't tolerate but has been agreeable) Supplemental O2 to maintain sats. Monitor labs in AM Anemia Also w/ anemia in setting of recent NSAID use/since stopped suspect worsened SOB, no bleeding reported Iron panel obtained and reviewed -LOW iron at 22, trans % sat 7, ferritin 34 B12 low normal 181, folate 7.8. Venofer 200mg x 1, B12 IM x 1. Repeat Venofer while inpatient and continue B12 PO daily On PPI once daily at baseline and prednisone 30mg daily-- consideration to increase to BID if needed. fecal occult ordered for completeness but denied any bleeding at present time (2) Acute on chronic respiratory failure with hypoxemia: Plan: Secondary to pulmonary edema (as well as other contributing causes as outlined above) Aim O2 sats > 90%, baseline on room air CO2 elevation suspected 2nd to over saturation --> asked RN to titrate this AM as possible should have albuterol HFA at discharge as doesn't appear she has one of these per med rec (will need to clarify) given reports asthma underlying Monitor I&O, weights (3) LISBETH (obstructive sleep apnea): Plan: Hx LISBETH, no CPAP at home at present She reports recent repeat sleep study -- CM reaching out to PCP office/seeing if able to assist in arranging) (prior admit in February w/ o2step with 4L w/ ambulation but patient reports seeing lung doctor in [place] w/ testing and was told only thing it showed was as thma) However, appears this may be more related to her possible rheumatoid arthritis should have albuterol HFA at discharge as doesn't appear she has one of these per med rec (will need to clarify) Working on overnight pulse ox/seeing status on CPAP given recent sleep study as above CPAP ordered HS while inpatient (4) NSIP (nonspecific interstitial pneumonitis): Plan: ?due to rheumatoid per last pulm workup inpatient Follows with [facility] pulmonology and reports workup just showed asthma rather than restrictive lung disease therefore unclear if this is a true diagnosis Currently on prednisone 30mg PO daily (mainly for her joint pain off ibuprofen) awaiting follow up rheumatology appointment CRP/ESR ordered -- elevated 42/15.91 (?2nd to anemia v other-- possible underlying rheumatoid arthritis per patient -- outpatient investigation already being undertaken per patient) Consider restarting Bactrim for PCP prophylaxis given high dose prednisone (5) T2DM (type 2 diabetes mellitus): Plan: HbA1C 6.0 in December, repeat 6.7 Holding home metformin/trullicity BSG AC/HS w/ SSI while inpatient BSGs acceptable and will monitor/adjustment to SSI as needed (6) GERD (gastroesophageal reflux disease): Plan: Continue pantoprazole. consider increasing to BID as above (7) Anemia: Plan: recent NSAID use reported, MCV 80.4. Most recent TSH wnl in December but will repeat given anemia for completeness Iron studies pending for this morning along w/ B12/folate 9.7 on admit --> 9.0 on repeat (no bleeding reported). Retic count elevated, making RBC Iron panel w/ iron 22, trans % sat 7, ferritin 34. Venofer 200mg x1 ordered and plan for 300mg IV daily for tomorrow/monday depending inpatient stay Folate 7.8, wnl but could consider replacement as low normal B12 LOW NORMAL at 181 -IM replacement x 1, continue PO daily thereafter TSH elevated 8.0, T4 wnl --> patient not taking correctly (taking w/ her other AM meds) - rec taking correctly/repeat TFT w/ PCP in follow up as discussed taking adequately should help w/ weight gain/fatigue/edema etc Hgb 9.9, fecal occult ordered for completeness Monitor CBC in AM (8) Hypercalcemia: Plan: appears prior values up to 10.7, 10.0 on admission. PTH 117.3 and prior check vitamin D as never had any in system/joint pain at baseline ?underlying sarcoid (did have normal BAUTISTA level in December 2022) (9) Hypomagnesemia: Plan: low 1.3 on admission, repeat 1.5 --> IV replacement ordered for today and will monitor in AM . Suspect worsened SOB/wheezing also w/ component from her supposed underlying asthma (?PO mag BID at dc) (10) Hip pain: Plan: right hip pain, acute/chronic in nature. Hx arthritis, also trochanteric bursitis. Already on prednisone, 30mg at present time. Topical voltaren, oxycodone prn added. Had gotten dose of morphine overnight/prior effectiveness w/ oxycodone and wanting to avoid NSAIDs given CKD/anemia and getting venofer Denies any recent trauma/falls ?2nd to elevated calcium levels. PTH prior elevated/Ca 10.5. Vitamin D checked --> ?underlying hyperparathyroidism Will also consult PT to ensure safe to return home Plan VTE Prophyalxis - Lovenox 40mg SQ daily ordered Possible dc tomorrow vs Monday pending inpatient course. Repeat echo pending to eval worsening EF. ?2step prior to dc To note, patient would like all info sent to [facility], Susana Roldan Admission and Anticipated Discharge Date Admission Date: July 08, 2023 Supervising Physician Co-Signing Physician Notes The patient was not seen by me. The chart was reviewed. Case discussed with [place]. Agree with assessment and plan Subjective Evaluated this morning, doing much better. Breathing significantly improved. Did not get much sleep as bed one kept light on all night, Vistaril for tonight to help w/ sleep. Discussed sleep study/CM following up w/ PCP but if unable to arrange CPAP at ok will plan overnight sleep study/HS O2 w/ testing tonight in meantime. Good appetite, decreased abdominal distension. swelling to legs to baseline, weights down. Seen by CHF clinic this AM, echo done but not read. She notes Zelda told her she would like to see her next week in clinic, will touch [facility] for recs. She notes pain to her right hip, chronic and ongoing. Having worked up outpatient, does endorse hx bursitis as well. On prednisone 30mg as she reports they think she has RA.. Got dose of morphine overnight, will order oxycodone prn and topical Voltaren. Will change her prn Vistaril to prn anxiety/sleep. Discussed continuing to watch her fluid intake. No soup/chip lover at home but does report she loves to eat hoagies. Discussed limiting this as well as processed foods/limiting salt intake. Questions/concerns addressed at this time.She is hopeful for ok tomorrow. Physical Exam Physical Exam: General: 72yo female sitting up in recliner chair at [facility], looking better HEENT: head normocephalic, atraumatic, mmm, trachea midline Resp: diminished in the bases, faint expiratory wheezing resolving, mild bibasilar crackles, on 1L NC, no tahcypnea CV: RRR, +systolic murmur, trace pedal edema , calves nontender/pulses palpable GI: +BS, slight distension/fullness, nontender : no [place] MSK/Neuro: no focal deficit/slurred speech, answering questions appropriately, following commands as able R chronic hip pain, no obvious deformity/decreased strength, pulses palpable Psych: AOx3, cooperative with exam Results & Data Results & Data Vital Signs (Past 12 Hours) Vital Signs Temp Pulse Pulse Resp BP BP Pulse Ox 07/10/23 07:36 36.7 C 60 16 135/68 98 07/10/23 07:16 61 07/10/23 04:00 36.7 C 57 L 18 131/61 98 07/10/23 00:00 36.6 C 58 L 18 126/69 97 07/09/23 22:06 56 L 07/09/23 21:30 O2 Del Method O2 Flow Rate 07/10/23 07:36 Nasal Cannula 3 11/20/23 07:16 07/10/23 04:00 Nasal Cannula 3 07/10/23 00:00 Nasal Cannula 3 07/09/23 22:06 07/09/23 21:30 Nasal Cannula 3 Laboratory Results 07/10/23 07/10/23 07/10/23 Range/Units 12:18 08:15 06:23 WBC 9.41 (4.8-10.8) K/ul RBC 3.79 L (4.20-5.40) M/uL Hgb 9.9 L (12.0-16.0) g/dl Hct 31.6 L (37.0-47.0) % MCV 83.4 (80.0-100.0) fL MCH 26.1 (25.0-34.0) pg MCHC 31.3 L (32.0-36.0) g/dL RDW Std Deviation 53.9 H (36.4-46.3) fL RDW Coeff of Jason 17.8 H (11.5-14.5) % Plt Count 265 (130-400) K/uL MPV 10.9 (9.4-12.4) fL Immature Gran % (Auto) 0.5 % Neut % (Auto) 73.7 % Lymph % (Auto) 14.7 % [place] % (Auto) 6.5 % Eos % (Auto) 4.3 % Baso % (Auto) 0.3 % Neut # (Auto) 6.94 H (1.40-6.50) K/uL Lymph # (Auto) 1.38 (1.20-3.40) K/uL [place] # (Auto) 0.61 H (0.11-0.59) K/uL Eos # (Auto) 0.40 (0.00-0.50) K/uL Baso # (Auto) 0.03 (0.00-0.20) K/uL Immature Gran # (Auto) 0.05 (0.01-0.20) K/uL Sodium 140 (136-145) mmol/L Potassium 3.2 L (3.5-5.1) mmol/L Chloride 99 (98-107) mmol/L Carbon Dioxide 34 H (21-32) mmol/L Anion Gap 7 (3-11) BUN 25 H (6-23) mg/dl Creatinine 1.22 H (0.6-1.2) mg/dl Est Cr Clr Drug Dosing 41.8 ml/min Est GFR ( Amer) 50.5 ml/min Est GFR (Non-Af Amer) 43.6 ml/min BUN/Creatinine Ratio 20.5 H (10-20) Glucose 89 (70-99(Fasting)) mg/dl POC Glucose 145 H 101 H (70-99) mg/dl Calcium 10.5 H (8.6-10.3) mg/dl Magnesium 1.8 (1.7-2.4) mg/dl Total Bilirubin 0.4 (0.2-1.0) mg/dl Direct Bilirubin 0.1 (0-0.2) mg/dl AST 18 (13-39) U/L ALT 40 (7-52) U/L Alkaline Phosphatase 77 (34-104) U/L Total Protein 6.8 (6.0-8.3) gm/dl Albumin 3.6 (3.4-5.0) gm/dl 07/09/23 07/09/23 Range/Units 21:01 16:43 WBC (4.8-10.8) K/ul RBC (4.20-5.40) M/uL Hgb (12.0-16.0) g/dl Hct (37.0-47.0) % MCV (80.0-100.0) fL MCH (25.0-34.0) pg MCHC (32.0-36.0) g/dL RDW Std Deviation (36.4-46.3) fL RDW Coeff of Jason (11.5-14.5) % Plt Count (130-400) K/uL MPV (9.4-12.4) fL Immature Gran % (Auto) % Neut % (Auto) % Lymph % (Auto) % [place] % (Auto) % Eos % (Auto) % Baso % (Auto) % Neut # (Auto) (1.40-6.50) K/uL Lymph # (Auto) (1.20-3.40) K/uL [place] # (Auto) (0.11-0.59) K/uL Eos # (Auto) (0.00-0.50) K/uL Baso # (Auto) (0.00-0.20) K/uL Immature Gran # (Auto) (0.01-0.20) K/uL Sodium (136-145) mmol/L Potassium (3.5-5.1) mmol/L Chloride (98-107) mmol/L Carbon Dioxide (21-32) mmol/L Anion Gap (3-11) BUN (6-23) mg/dl Creatinine (0.6-1.2) mg/dl Est Cr Clr Drug Dosing ml/min Est GFR ( Amer) ml/min Est GFR (Non-Af Amer) ml/min BUN/Creatinine Ratio (10-20) Glucose (70-99(Fasting)) mg/dl POC Glucose 110 H 138 H (70-99) mg/dl Calcium (8.6-10.3) mg/dl Magnesium (1.7-2.4) mg/dl Total Bilirubin (0.2-1.0) mg/dl Direct Bilirubin (0-0.2) mg/dl AST (13-39) U/L ALT (7-52) U/L Alkaline Phosphatase (34-104) U/L Total Protein (6.0-8.3) gm/dl Albumin (3.4-5.0) gm/dl Diagnostic Findings Chest X-Ray 07/10/23 07:00 TWO VIEW CHEST CLINICAL HISTORY: Follow-up pulmonary vascular congestion. Dyspnea. FINDINGS: PA and lateral chest radiographs are compared to study dated 07/08/2023. The heart is enlarged. Pulmonary vascular congestion persists. Chronic interstitial thickening is similar to previous. There are mild bibasilar airspace opacities. No pleural effusion or pneumothorax is identified. The skeletal structures are osteopenic. The bony thorax appears intact. IMPRESSION: 1. Cardiomegaly with mild persistent pulmonary vascular congestion. 2. Mild bibasilar opacities are nonspecific and may represent atelectasis. Correlate clinically. ACT 112: Negative or not required by law. Electronically signed by: Epifanio Hugo M.D. 07/10/2023 10:03 AM PG Care Time/CCT Total # of Minutes Spent Total Time Spent with Patient: Total time spent is greater than 50% in coordination of care (as documented) at patient's floor/unit and/or counseling patient: Coding Level of Care Code 00116 SUB INP/OBS CARE 350MIN Diagnoses Acute on chronic heart failure with preserved ejection fraction I50.33 Acute on chronic respiratory failure with hypoxemia J96.21 LISBETH (obstructive sleep apnea) G47.33 NSIP (nonspecific interstitial pneumonitis) J84.89 T2DM (type 2 diabetes mellitus) E11.9 GERD (gastroesophageal reflux disease) K21.9 Anemia D64.9 Anemia type: unspecified type Hypercalcemia E83.52 Hypomagnesemia E83.42 Hip pain M25.559 (7) Anemia Anemia type: unspecified type Qualified Code(s): D64.9 - Anemia, unspecified
[2023-07-10 08:09] LABS: Albumin Level 3.6 gm/dl (3.4-5.0); BUN Creatinine Ratio 20.5 (10-20); Bilirubin Direct 0.1 mg/dl (0-0.2); Bilirubin,Total 0.4 mg/dl (0.2-1.0); Calcium 10.5 mg/dl (8.6-10.3); Creatinine Clr Calc Pharmacy 41.8 ml/min; Est GFR (African American) 50.5 ml/min; Est GFR (Non-African American) 43.6 ml/min; Magnesium 1.8 mg/dl (1.7-2.4); Potassium 3.2 mmol/L (3.5-5.1); Total Protein 6.8 gm/dl (6.0-8.3)
[2023-07-10] MEDS ORDERED: POTASSIUM CHLORIDE CRTAB 20 MEQ TABCR PO STA (08:50)
[2023-07-10] MEDS: ACETAMINOPHEN 325 MG TAB PO PRN (09:01)
[2023-07-10] MEDS: INSULIN ASPART PER UNIT CHARGE SC SCH ×4 (09:12→21:08)
[2023-07-10] MEDS: IRON SUCROSE 300 MG in SODIUM CHLORIDE 0.9% 250 ML IV SCH (09:36)
[2023-07-10] MEDS: allopurinoL 100 MG TAB PO SCH (09:37)
[2023-07-10] MEDS: OXYBUTYNIN CHLORIDE XL 5 MG TABCR PO SCH (09:37)
[2023-07-10] MEDS: VENLAFAXINE HCL XR 75 MG CAPXR PO SCH (09:37)
[2023-07-10] MEDS: SERTRALINE HCL 50 MG TABLET PO SCH (09:37)
[2023-07-10] MEDS: CYANOCOBALAMIN (B-12) 500 MCG TABLET PO SCH (09:37)
[2023-07-10] MEDS: VENLAFAXINE HCL XR 150 MG CAPXR PO SCH (09:37)
[2023-07-10] MEDS: VIBEGRON 75 MG TAB PO SCH (09:37)
[2023-07-10] MEDS: predniSONE 10 MG TABLET PO SCH (09:37)
[2023-07-10] MEDS: LOSARTAN POTASSIUM 50 MG TAB PO SCH (09:37)
[2023-07-10] MEDS: FUROSEMIDE 40 MG/4 ML VIAL IV SCH (09:38)
--- NOTE | 2023-07-10 10:04 | XRay Report ---
TWO VIEW CHEST CLINICAL HISTORY: Follow-up pulmonary vascular congestion. Dyspnea. FINDINGS: PA and lateral chest radiographs are compared to study dated 07/08/2023. The heart is enlar ged. Pulmonary vascular congestion persists. Chronic interstitial thickening is similar to previous. There are mild bibasilar airspace opacities. No pleural effusion or pneumothorax is identified. The s keletal structures are osteopenic. The bony thorax appears intact. IMPRESSION: 1. Cardiomegaly with mild persistent pulmonary vascular congestion. 2. Mild bibasilar opacities are nonspecific and may represent atelectasis. Correlate clinically. ACT 112: Negative or not required by law. Electronically signed by: Epifanio Hugo M.D. 07/10/2023 10:03 AM
[2023-07-10] MEDS ORDERED: hydrOXYzine HCl 25 MG TAB PO PRN (10:39)
--- NOTE | 2023-07-10 10:57 | Heart Failure Consultation ---
Date of Consultation July 10, 2023 Assessment & Plan (1) (HFpEF) heart failure with preserved ejection fraction: (2) Hypoxia: (3) LISBETH (obstructive sleep apnea): (4) Anemia: Plan HFpEF: Patient appears near euvolemic on exam. She continues to have rales on exam and requiring O2. Also with other competing diagnoses that may be contributing to these symptoms. Also on steroids for interstitial pneumonitis/joint pain which may be contributing to fluid retention. Continue to wean down O2 as able. May need 2step on discharge. Has had a good response to IV diuretics. Continue Lasix 40 mg IV daily with a goal of 1-2L negative per day. Continue to monitor kidney function and electrolytes. Would discharge on 20 mg daily. (Previously decreased to PRN by pulmonology but was not doing daily weights or taking any). Plan on BMP/mag/BNP within 7 days of discharge for close monitoring. May need to further adjust as outpatient. Would also consider adding SGLT2i which may help with additional volume unloading and further optimize her HF regimen. Would recommend ongoing outpatient discussion with DM provider since she's also on other agents. Continue daily STANDING weights while inpatient. Strict I&Os, patient educated on this today. Low sodium diet. We discussed the nature of heart failure and the goals of the program. She is agreeable to ongoing participation. Plan to follow up as outpatient within 7 days of discharge. History of Present Illness Attending Physician: Ned Stacy MD History of Present Illness Patient is a 72 year old female with history of anemia, hypothyroidism, DMII, HFpEF, and interstitial pneumonitis. She does not routinely follow with cardiology. Recent cardiac studies: 1. 01/17/23 Echo: LV function normal, 60-65%. No RWMA. Mild concentric LVH. RV normal size/function. Mild MR. RVSP elevated 40-50 mmHg.IVC moderately dilated. 2. 07/10/23 Echo: pending Patient has had 2 prior pneumonia related admissions this year. EF at that time was preserved. Patient was admitted on 07/08/23 wit hernández 3 day history of dyspnea on exertion, orthopnea, and 17 lb weight gain. Patient was to be taking Lasix PRN however she was not weighing herself at home and therefore not taking her diuretics when needed. Patient noticed she was becoming short of breath walking short distances and presented to the ED. She is also noticing some lower extremity edema. CXR consistent with pulmonary vascular congestion and small pleural effusions. She was initiated on Lasix 40 mg IV daily. She is requiring supplemental O2 however is weaning down, 2 L currently. She reports she is feeling significantly improved this am. She reports good urine output. Has not had any diuretics yet today. She is net negative 3.6 L for admission. Standing weight is 180 lb this am. She slept well, denies PND. Edema is improved. She denies chest pain, cough, palpitations. Limited echo is pending today. FamHx: Denies premature CAD. SocHx: She lives alone. Patient denies tobacco use. She drinks alcohol occasionally. Allergies Allergy/AdvReac Type Severity Reaction Status Date / Time Beta-Blockers AdvReac Severe wipes me Verified 02/21/23 16:39 (Beta-Adrenergic Bloc out Home Medications Medication Instructions Recorded Confirmed Type allopurinol 100 mg tablet 100 mg PO QAM 01/16/23 07/08/23 History dulaglutide 1.5 mg/0.5 mL 1.5 mg subcut WK 01/16/23 07/08/23 History subcutaneous pen injector (Trulicity) fluoride (sodium) 1.1 % dental 1 applic dental QA 01/16/23 07/08/23 History cream (Sodium Fluoride 5000 Plus) hydroxyzine HCl 25 mg tablet 25 mg PO Q8 PRN Anxiety 01/16/23 07/08/23 History latanoprost 0.005 % eye drops 1 drp OPB QPM 01/16/23 07/08/23 History levothyroxine 100 mcg tablet 100 mcg PO DAILYBB 01/16/23 07/08/23 History mirabegron 50 mg tablet,extended 50 mg PO QAM 01/16/23 07/08/23 History release 24 hr (Myrbetriq) pantoprazole 40 mg tablet,delayed 40 mg PO DAILYBB 01/16/23 07/08/23 History release pramipexole 0.25 mg tablet 0.25 mg PO HS 01/16/23 07/08/23 History pravastatin 40 mg tablet 40 mg PO HS 01/16/23 07/08/23 History sertraline 50 mg tablet 50 mg PO QA 01/16/23 07/08/23 History solifenacin 5 mg tablet 5 mg PO QAM 01/16/23 07/08/23 History venlafaxine 75 mg capsule,extended 75 mg PO QAM 01/16/23 07/08/23 History release 24 hr olmesartan 20 mg tablet 20 mg PO DAILY #30 tabs 01/21/23 07/08/23 Rx venlafaxine 150 mg 150 mg PO QAM 02/21/23 07/08/23 History capsule,extended release 24 hr Oxygen Home #2 L 02/26/23 Rx furosemide 20 mg tablet (Lasix) 20 mg PO DAILY #30 tabs 02/26/23 07/08/23 Rx prednisone 10 mg tablet 10 mg PO DIRECTED #90 tabs 02/26/23 07/08/23 Rx Patient History Medical History T2DM (type 2 diabetes mellitus) Urge incontinence Cellulitis Hypothyroid Depression Hypertension Cellulitis Cystitis Social History Smoking Status: Never smoker Second Hand Exposure: No; Do You Dip or Chew Tobacco: No; Hx Alcohol Use: Yes Alcohol type: wine Hx Substance Use: No Preferred Language: Citizen Of [place] Communication Ability: Effective Dough Mixer Helper Required: No Beliefs That Will Affect Care: None Current Living Situation: Alone Feels Safe at Home: Yes Safety Concerns: Feels Safe At This Time Assistive Devices: Denture - Upper, Glasses and Hearing Aid - Bilateral Physical Exam Physical Exam: Constitutional: Alert, oriented, in no acute distress HEENT: Head is atraumatic and normocephalic. EOMs intact. Sclera anicteric. Face is symmetric. No perioral cyanosis. Mucous membranes moist. Neck: Supple, no JVD, +HJR Pulmonary: Normal respiratory effort, faint bibasilar crackles. Cardiac: Regular rate and rhythm. Normal S1 and S2, no gallops, no rubs, no murmurs Extremities: 2+ radial pulses bilaterally. 2+ posterior tibialis pulses bilaterally. Trace pitting edema. No cyanosis or clubbing. Abdomen: Normal bowel sounds, soft, non-tender, no abdominal mass palpated Skin: Normal skin color, turgor, and pigmentation, no rash, no skin lesions Neurological: Patient is awake, alert, and oriented. Pleasant and cooperative. Answers questions appropriately. Speech is clear. Normal movement in all 4 extremities. Results & Data Vital Signs (Past 12 Hours) Vital Signs Temp Pulse Pulse Resp BP BP Pulse Ox 07/10/23 07:51 98 07/10/23 07:36 98.1 F 60 16 135/68 98 07/10/23 07:16 61 07/10/23 04:00 98.1 F 57 L 18 131/61 98 07/10/23 00:00 97.9 F 58 L 18 126/69 97 O2 Del Method O2 Flow Rate 07/10/23 07:51 Nasal Cannula 3 07/10/23 07:36 Nasal Cannula 3 07/10/23 07:16 07/10/23 04:00 Nasal Cannula 3 07/10/23 00:00 Nasal Cannula 3 Coding Level of Care Code 03714 INT INP/OBS CARE MIN Diagnoses (HFpEF) heart failure with preserved ejection fraction I50.30 Hypoxia R09.02 LISBETH (obstructive sleep apnea) G47.33 Anemia D64.9 Anemia type: unspecified type (4) Anemia Anemia type: unspecified type Qualified Code(s): D64.9 - Anemia, unspecified
[2023-07-10] MEDS: oxyCODONE HCL IR 5 MG TAB (IMMEDIATE RELEASE) PO PRN ×2 (11:30→21:17)
[2023-07-10] MEDS: DICLOFENAC SOD 1% GEL 100 GM TUBE EXT SCH ×3 (12:57→21:14)
--- NOTE | 2023-07-10 16:44 | XCELERA ---
[id number]
[2023-07-10] MEDS: LATANOPROST 0.005% OP SOLN 2.5 ML BTL OPB SCH (21:12)
[2023-07-10] MEDS: ENOXAPARIN INJ 40 MG/0.4 ML SYR SQ SCH (21:12)
[2023-07-10] MEDS: PRAMIPEXOLE DIHYDROCHLO 0.25 MG TAB PO SCH (21:14)
[2023-07-10] MEDS: PRAVASTATIN SOD 40 MG TAB PO SCH (21:14)
[2023-07-11] MEDS: PANTOprazole 40 MG TAB PO SCH (05:30)
[2023-07-11] MEDS: LEVOTHYROXINE SODIUM 100 MCG TABLET PO SCH (05:30)
[2023-07-11 07:29] LABS: Basophils # (auto) 0.04 K/uL (0.00-0.20); Basophils % (auto) 0.5 %; Eosinophils # (auto) 0.36 K/uL (0.00-0.50); Eosinophils % (auto) 4.2 %; Hematocrit (blood only) 31.9 % (37.0-47.0); Hemoglobin 10.1 g/dl (12.0-16.0); Immature Granulocytes # (auto) 0.05 K/uL (0.01-0.20); Immature Granulocytes % (auto) 0.6 %; Lymphocytes # (auto) 1.66 K/uL (1.20-3.40); Lymphocytes % (auto) 19.5 %; Mean Corpuscular Hemoglobin 25.9 pg (25.0-34.0); Mean Corpuscular Hgb Conc 31.7 g/dL (32.0-36.0); Mean Corpuscular Volume 81.8 fL (80.0-100.0); Mean Platelet Volume 9.9 fL (9.4-12.4); Monocytes # (auto) 0.74 K/uL (0.11-0.59); Monocytes % (auto) 8.7 %; Neutrophils # (auto) 5.67 K/uL (1.40-6.50); Neutrophils % (auto) 66.5 %; Platelet Count 263 K/uL (130-400); RDW Coefficient of Variation 17.7 % (11.5-14.5); RDW Standard Deviation 51.8 fL (36.4-46.3); White Blood Count 8.52 K/ul (4.8-10.8)
--- NOTE | 2023-07-11 07:36 | XRay Report ---
SINGLE VIEW CHEST CLINICAL HISTORY: Follow-up chest congestion. FINDINGS: An AP, portable, upright chest radiograph is compared to study dated 07/10/2023 and correla pepe with chest CT dated 02/23/2023. The heart is enlarged. Mild pulmonary vascular congestion persists. Chronic interstitial thickening and foci of parenchymal scarring are similar to previous. Suspect tr fermin pleural fusions. Mild bilateral airspace opacities persistent. No pneumothorax is seen. The skele brittney structures are osteopenic. The bony thorax is grossly intact. Degenerative change and scoliosis i s noted in the spine. IMPRESSION: 1. Cardiomegaly with mild pulmonary vascular congestion. 2. Mild bilateral airspace opacities are nonspecific and could be related to chronic lung disease, mi ld pulmonary edema, and/or an infectious/inflammatory pneumonitis. These have significantly cleared a s compared to the 02/25/2023 examination and have not appreciably changed from yesterday. Radiographic follow-up to resolution is recommended. 3. Suspect small pleural effusions. ACT 112: Negative or not required by law. Electronically signed by: Epifanio Hugo M.D. 07/11/2023 7:35 AM
--- NOTE | 2023-07-11 07:50 | Hospitalist Progress Note ---
Date of Service July 11, 2023 Assessment & Plan (1) Acute on chronic heart failure with preserved ejection fraction: Plan: 72yo female presented with reported 17lb weight gain w/ increased leg swelling/hypoxia on admission requiring supplemental O2 to maintain sats and reports was seen by pulm in [place] who told her she "just had asthma" and stopped her supplemental oxygen given review of chart w/ patient discharged on 2L at rest/4L with ambulation last hospitalization in FEBRUARY 2023 Ketty reported 17lb weight gain w/ increased leg swelling/hypoxia on admission requiring supplemental O2 to maintain sats. 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 in [place] area who told her she "just has asthma") Suspect multifactorial - in setting of patient recently stopping her lasix/noncompliance w/ elevated renal function w/ recent NSAID use for joint pain in setting of iron deficiency anemia/renal failure as well as hypomagnesemia (appearing chronic in nature) as well as UNTREATED sleep apnea/diastolic heart failure and inappropriately taking her Synthroid w/ her other AM medications Lasix increased to 40mg IV BID 07/09 given multiple bags IV magnesium/venofer day prior to prevent worsening overload -Changed to ONCE daily 40mg IV on 07/10 Repeat limited ECHO to eval EF w/ preserved EF (Prior in December w/ EF 60-65%, mild MR, elevated RVSP 40-50%, grade II diastolic dysfunction) Was down to 1L at rest/room air 07/10 afternoon and pulse ox overnight performed while attempting to assist w/ getting her CPAP arranged given reports of recent sleep study as suspect untreated sleep apnea x years also worsening her heart failure. CPAP HS for tonight while inpatient Lasix increased back to 40mg IV BID for 07/11 given reported ~1kg weight gain overnight despite 40mg IV once daily. See CXR/pulmonary edema. Renal function stable on increased diuretics Low salt diet encouraged (likes to eat lots of hoagies per patient), Fluid restriction 1500ml/day continued Monitor I&O, daily standing scale weights CHF clinic consulted -- discussed given recs 20mg PO daily in patient w/ weight gain on 40mg IV dose and agreed w/ increase 40mg IV BID for today Supplemental O2 to maintain sats -- asked RN to wean while at rest and can increase as needed w/ ambulation as she dropped to 70s w/ therapy but rebounded quickly (denied any worsening breathing on exam/no cough or sputum production) WOULD RECOMMEND 2 STEP PRIOR TO DC Monitor labs in AM See below regarding anemia/hypothyroidism/hypercalcemia (2) Anemia: Plan: recent NSAID use reported, MCV 80.4. no bleeding reported. TSH elevation as below (no arhythmia on monitor) Iron panel checked w/ Iron 22, trans % sat 7, ferritin 34. -Venofer IV daily while inpatient to complete course B12 LOW normal 181 -given 1x IM and continuing 1000mcg daily and would continue at dc Folate 7.8, could consider replacement but normal and will hold off Hgb stable 10.1, no bleeding reported. Fecal occult ordered for completeness PPI continued, consider BID but given chronic hypomag issues and no increased reflux/bleeding will continue once daily for now. On prednisone 30mg daily CBC in AM (3) Acute on chronic respiratory failure with hypoxemia: Plan: Secondary to pulmonary edema (as well as other contributing causes as outlined above) Aim O2 sats > 90%, baseline on room air CO2 elevation suspected 2nd to over saturation --> asked RN to titrate this AM as possible should have albuterol HFA at discharge as doesn't appear she has one of these per med rec (will need to clarify) given reports asthma underlying Monitor I&O, weights ?need for resumption prophylactic bactrim given high dose prednisone (?underlying RA vs other) NIPPV needing arranged at discharge WOULD 2 STEP PRIOR TO DC (4) Hypercalcemia: Plan: Appears prior values up to 10.7, 10.0 on admission. PTH 117.3 prior in patient w/ baseline joint pain/constipation/fatigue/NO HX KIDNEY STONES reported however Noting patient /w normal BAUTISTA level in December, suspected checked to r/o underlying sarcoid w/ NSIP 25 vit d checked - 37.7 repeat PTH intact 94.6 and Ca 11.0 on AM labs. Ionized ca slightly elevated 1.42 but no urgent need for treatment --> lasix as above Will check phos, parathyroid related peptide and 1,25 vit d Will have case management arrange for endocrinology follow up to eval for suspected underlying hyperparathyroidism Monitor ca level in am (5) LISBETH (obstructive sleep apnea): Plan: Hx LISBETH, no CPAP at home at present but reports recent sleep study-- CM obtaining report/will order inpatient tonight and see if able to arrange at id. Overnight pulse ox w/ drop and can arrange 2L HS in meantime otherwise (would also 2step as above as prior admit in February w/ o2step with 4L w/ ambulation but patient reports seeing lung doctor in [place] w/ testing and was told only thing it showed was asthma) Likely should have albuterol HFA at id for "asthma" however very likely something else w/ her NSIP (6) NSIP (nonspecific interstitial pneumonitis): Plan: ?due to rheumatoid per last pulm workup inpatient Follows with [facility] pulmonology and reports workup just showed asthma rather than restrictive lung disease therefore unclear if this is a true diagnosis Currently on prednisone 30mg PO daily (mainly for her joint pain off ibuprofen) awaiting follow up rheumatology appointment CRP/ESR ordered -- elevated 42/15.91 (?2nd to anemia v other-- possible underlying rheumatoid arthritis per patient -- outpatient investigation already being undertaken per patient) Consider restarting Bactrim for PCP prophylaxis given high dose prednisone (7) T2DM (type 2 diabetes mellitus): Plan: HbA1C 6.0 in December, repeat 6.7. noting on prednisone 30mg daily Holding home metformin/Trulicity and utilizing BSG AC/HS w/ SSI while inpatient and BSgs stable at present and will monitor (8) GERD (gastroesophageal reflux disease): Plan: Continue pantoprazole. consider increasing to BID as above but no increased reflux reported (9) Hypomagnesemia: Plan: low 1.3 on admission, repeat 1.5 and additional replacement ordered and remained stable 1.7 on am labs and will monitor in AM but ?mag oxide BID if repeats low. ?mag wasting, ?from PPI use. checking phos level (10) Hip pain: Plan: right hip pain, acute/chronic in nature. Hx arthritis, also trochanteric bursitis. Already on prednisone, 30mg at present time. Topical voltaren, oxycodone prn added as had gotten dose of morphine overnight/prior effectiveness w/ oxycodone and wanting to avoid NSAIDs given CKD/anemia and getting venofer but reports controlled with ordered medications Denies any recent trauma/falls ?2nd to elevated calcium levels. PTH prior elevated/Ca 10.5. PTH 94.6/ca 11.0 as above, checking PRP/phos and will send 1,25vit d. ?2nd sedentary PT consulted to ensure safe to return home (11) Hypothyroid: Plan: TSH elevation in patient on replacement however elevated and taking w/ her usual AM medications -- education provided on correct way to take and PCP to repeat TFT as outpatient in 4-6 weeks continue usual dose Synthroid for now Plan VTE Proph w/ lovenox SQ daily Increased diuretics/monitoring response. Possible dc tomorrow vs 2 day pending response to increased diuretics and would 2step prior to dc Patient would like all info sent to [facility] PCP, Susana Roldan Admission and Anticipated Discharge Date Admission Date: July 08, 2023 Supervising Physician Co-Signing Physician Notes PA Supervision Note: I did not personally see or examine the patient today, but I verified all rojas points of CURTIS Reinoso's assessment and plan with the following exceptions/additions: None Subjective Eval this morning, sitting up in recliner. Feeling better w/ breathing/LE edema improved but abdominal fullness/reporting needing to move her bowels. Will order something, suspect worsened w/ pain medication for hip pain. Discussed continued inpatient stay, O2 dropped to 70-80s up/ambulating but rebounded quickly. CXR w/ continued congestion, weights w/ standing scale increased from yesterday despite 40mg IV lasix and decision to increase to BID. Reports urine dark in color -- appearance in bathroom in hat w/ slightly concentrated but clear yellow urine. Discussed elevated calcium level/further investigation and discussion w/ supervising provider but suspect could be contributing to her joint pain/constipation. No fever/chills, chest pain, sputum production or nausea/vomiting at present. Physical Exam 2 Physical Exam: General: 72yo female sitting up in recliner chair at [facility], NAD, looking better but still requiring supplemental oxygen HEENT: head normocephalic, atraumatic, mmm, trachea midline Resp: diminished in the bases, faint expiratory wheezing resolved/bilateral faint crackles, ?rales, 3L NC, occasional cough (reports nonproductive) CV: RRR, +systolic murmur, trace pedal edema almost completely resolved, calves nontender/pulses palpable GI: +BS, slight distension/fullness but nontender/no guarding/rigidity : no [place] MSK/Neuro: no focal deficit/slurred speech, answering questions appropriately, following commands as able R chronic hip pain, no obvious deformity/decreased strength, pulses palpable chronic low back pain/no trauma/deformity Psych: AOx3, cooperative with exam Results & Data Results & Data Vital Signs (Past 12 Hours) Vital Signs Temp Pulse Pulse Pulse Pulse Resp BP 07/11/23 07:13 61 07/11/23 04:09 53 L 07/11/23 03:33 36.6 C 60 18 136/77 07/10/23 23:14 36.5 C 60 18 142/77 H 07/10/23 22:57 63 07/10/23 22:38 87 07/10/23 22:37 60 07/10/23 20:00 Pulse Ox Pulse Ox Pulse Ox O2 Del Method O2 Del Method O2 Del Method O2 Flow Rate 07/11/23 07:13 07/11/23 04:09 91 Nasal Cannula 07/11/23 03:33 95 Nasal Cannula 1 07/10/23 23:14 93 Nasal Cannula 1 07/10/23 22:57 92 Nasal Cannula 07/10/23 22:38 07/10/23 22:37 93 Room Air 07/10/23 20:00 Nasal Cannula 1 O2 Flow Rate 07/11/23 07:13 07/11/23 04:09 1 07/11/23 03:33 07/10/23 23:14 07/10/23 22:57 1 07/10/23 22:38 07/10/23 22:37 07/10/23 20:00 Laboratory Results 07/11/23 07:00 07/11/23 07:00 Diagnostic Findings Chest X-Ray 07/10/23 07:00 TWO VIEW CHEST CLINICAL HISTORY: Follow-up pulmonary vascular congestion. Dyspnea. FINDINGS: PA and lateral chest radiographs are compared to study dated 07/08/2023. The heart is enlarged. Pulmonary vascular congestion persists. Chronic interstitial thickening is similar to previous. There are mild bibasilar airspace opacities. No pleural effusion or pneumothorax is identified. The skeletal structures are osteopenic. The bony thorax appears intact. IMPRESSION: 1. Cardiomegaly with mild persistent pulmonary vascular congestion. 2. Mild bibasilar opacities are nonspecific and may represent atelectasis. Correlate clinically. ACT 112: Negative or not required by law. Electronically signed by: Epifanio Hugo M.D. 07/10/2023 10:03 AM Chest X-Ray 07/11/23 07:00 SINGLE VIEW CHEST CLINICAL HISTORY: Follow-up chest congestion. FINDINGS: An AP, portable, upright chest radiograph is compared to study dated 07/10/2023 and correlated with chest CT dated 02/23/2023. The heart is enlarged. Mild pulmonary vascular congestion persists. Chronic interstitial thickening and foci of parenchymal scarring are similar to previous. Suspect trace pleural fusions. Mild bilateral airspace opacities persistent. No pneumothorax is seen. The skeletal structures are osteopenic. The bony thorax is grossly intact. Degenerative change and scoliosis is noted in the spine. IMPRESSION: 1. Cardiomegaly with mild pulmonary vascular congestion. 2. Mild bilateral airspace opacities are nonspecific and could be related to chronic lung disease, mild pulmonary edema, and/or an infectious/inflammatory pneumonitis. These have significantly cleared as compared to the 02/25/2023 examination and have not appreciably changed from yesterday. Radiographic follow-up to resolution is recommended. 3. Suspect small pleural effusions. ACT 112: Negative or not required by law. Electronically signed by: Epifanio Hugo M.D. 07/11/2023 7:35 AM PG Care Time/CCT Total # of Minutes Spent Total Time Spent with Patient: Total time spent is greater than 50% in coordination of care (as documented) at patient's floor/unit and/or counseling patient: Coding Level of Care Code 50641 SUB INP/OBS CARE 3/50MIN Diagnoses Acute on chronic heart failure with preserved ejection fraction I50.33 Anemia D64.9 Anemia type: unspecified type Acute on chronic respiratory failure with hypoxemia J96.21 Hypercalcemia E83.52 LISBETH (obstructive sleep apnea) G47.33 NSIP (nonspecific interstitial pneumonitis) J84.89 T2DM (type 2 diabetes mellitus) E11.9 GERD (gastroesophageal reflux disease) K21.9 Hypomagnesemia E83.42 Hip pain M25.559 Hypothyroid E03.9 (2) Anemia Anemia type: unspecified type Qualified Code(s): D64.9 - Anemia, unspecified
[2023-07-11 08:24] LABS: Magnesium 1.7 mg/dl (1.7-2.4); Potassium 3.7 mmol/L (3.5-5.1)
[2023-07-11 08:30] LABS: BUN Creatinine Ratio 26.1 (10-20); Creatinine Clr Calc Pharmacy 43.7 ml/min; Est GFR (African American) 54.3 ml/min; Est GFR (Non-African American) 46.8 ml/min
[2023-07-11] MEDS: VIBEGRON 75 MG TAB PO SCH (08:31)
[2023-07-11] MEDS: allopurinoL 100 MG TAB PO SCH (08:31)
[2023-07-11] MEDS: CYANOCOBALAMIN (B-12) 500 MCG TABLET PO SCH (08:31)
[2023-07-11] MEDS: VENLAFAXINE HCL XR 75 MG CAPXR PO SCH (08:31)
[2023-07-11] MEDS: IRON SUCROSE 300 MG in SODIUM CHLORIDE 0.9% 250 ML IV SCH (08:31)
[2023-07-11] MEDS: predniSONE 10 MG TABLET PO SCH (08:31)
[2023-07-11] MEDS: VENLAFAXINE HCL XR 150 MG CAPXR PO SCH (08:31)
[2023-07-11] MEDS: LOSARTAN POTASSIUM 50 MG TAB PO SCH (08:31)
[2023-07-11] MEDS: OXYBUTYNIN CHLORIDE XL 5 MG TABCR PO SCH (08:31)
[2023-07-11] MEDS: SERTRALINE HCL 50 MG TABLET PO SCH (08:31)
[2023-07-11] MEDS: DICLOFENAC SOD 1% GEL 100 GM TUBE EXT SCH ×4 (08:32→19:56)
[2023-07-11] MEDS: INSULIN ASPART PER UNIT CHARGE SC SCH ×4 (08:41→19:44)
[2023-07-11] MEDS ORDERED: FUROSEMIDE 40 MG/4 ML VIAL IV SCH (09:00)
[2023-07-11] MEDS: ACETAMINOPHEN 325 MG TAB PO PRN (11:49)
[2023-07-11] MEDS: DOCUSATE SODIUM/SENNA 50/8.6MG TAB PO SCH (12:50)
--- NOTE | 2023-07-11 14:54 | Heart Failure Progress Note ---
Date of Service July 11, 2023 Assessment & Plan (1) (HFpEF) heart failure with preserved ejection fraction: (2) Hypoxia: (3) LISBETH (obstructive sleep apnea): (4) Anemia: Plan HFpEF: Patient appears near euvolemic on exam. She continues to have rales on exam and requiring O2. Weight is up today. Urine output has slowed. Also with other competing diagnoses that may be contributing to these symptoms. Also on steroids for interstitial pneumonitis/joint pain which may be contributing to fluid retention. Continue to wean down O2 as able. May need 2step on discharge. Planning to arrange for CPAP on discharge. Has had a good response to IV diuretics. Increase Lasix 40 mg IV BID with a goal of 1-2L negative per day. Continue to monitor kidney function and electrolytes. Would discharge on 40 mg daily. (Previously decreased to PRN by pulmonology but was not doing daily weights or taking any). Plan on BMP/mag/BNP within 7 days of discharge for close monitoring. May need to further adjust as outpatient. Would also consider adding SGLT2i which may help with additional volume unloading and further optimize her HF regimen. Would recommend ongoing outpatient discussion with DM provider since she's also on other agents. Continue daily STANDING weights while inpatient. Strict I&Os, patient educated on this today. Low sodium diet. We discussed the nature of heart failure and the goals of the program. She is agreeable to ongoing participation. Plan to follow up as outpatient within 7 days of discharge. Admission and Anticipated Discharge Date Admission Date: July 08, 2023 Subjective Patient sitting in the bedside chair this am. She was just returning from the bathroom. O2 saturation 77% on oxygen with ambulation. Improved quickly to 96%. Patient reports feeling asymptomatic. Overall she reports feeling improved. She denies lower extremity edema, chest pain, cough, palpitations. She is net negative 4 L. Weight is 182 lb this am, which is up from yesterday. Physical Exam Physical Exam: Constitutional: Alert, oriented, in no acute distress. Supplemental O2. HEENT: Head is atraumatic and normocephalic. EOMs intact. Sclera anicteric. Face is symmetric. No perioral cyanosis. Mucous membranes moist. Neck: Supple, no JVD, +HJR Pulmonary: Normal respiratory effort, faint bibasilar crackles. Cardiac: Regular rate and rhythm. Normal S1 and S2, no gallops, no rubs, no murmurs Extremities: 2+ radial pulses bilaterally. 2+ posterior tibialis pulses bilaterally. Trace pitting edema. No cyanosis or clubbing. Abdomen: Normal bowel sounds, soft, non-tender, no abdominal mass palpated Skin: Normal skin color, turgor, and pigmentation, no rash, no skin lesions Neurological: Patient is awake, alert, and oriented. Pleasant and cooperative. Answers questions appropriately. Speech is clear. Normal movement in all 4 extremities. Results & Data Vital Signs (Past 12 Hours) Vital Signs Temp Pulse Pulse Pulse Resp BP Pulse Ox 07/11/23 12:28 97.9 F 61 20 149/75 H 96 07/11/23 08:30 07/11/23 07:56 97.7 F 62 18 171/74 H 92 07/11/23 07:13 61 07/11/23 04:09 53 L 07/11/23 03:33 97.9 F 60 18 136/77 95 Pulse Ox O2 Del Method O2 Del Method O2 Flow Rate O2 Flow Rate 07/11/23 12:28 Nasal Cannula 4 07/11/23 08:30 Nasal Cannula 1 07/11/23 07:56 Nasal Cannula 1 07/11/23 07:13 07/11/23 04:09 91 Nasal Cannula 1 07/11/23 03:33 Nasal Cannula 1 PG Care Time/CCT Total # of Minutes Spent Total Time Spent with Patient: Total time spent is greater than 50% in coordination of care (as documented) at patient's floor/unit and/or counseling patient: Coding Level of Care Code 59794 SUB INP/OBS CARE 3/50MIN Diagnoses (HFpEF) heart failure with preserved ejection fraction I50.30 Hypoxia R09.02 LISBETH (obstructive sleep apnea) G47.33 Anemia D64.9 Anemia type: unspecified type (4) Anemia Anemia type: unspecified type Qualified Code(s): D64.9 - Anemia, unspecified
[2023-07-11 16:10] LABS: Phosphorus 4.4 mg/dl (2.5-4.9)
[2023-07-11] MEDS: FUROSEMIDE 40 MG/4 ML VIAL IV SCH (19:57)
[2023-07-11] MEDS: PRAVASTATIN SOD 40 MG TAB PO SCH (19:57)
[2023-07-11] MEDS: ENOXAPARIN INJ 40 MG/0.4 ML SYR SQ SCH (19:58)
[2023-07-11] MEDS: PRAMIPEXOLE DIHYDROCHLO 0.25 MG TAB PO SCH (19:58)
[2023-07-11] MEDS: LATANOPROST 0.005% OP SOLN 2.5 ML BTL OPB SCH (19:58)
[2023-07-11] MEDS ORDERED: DOCUSATE SODIUM 100 MG CAP PO SCH (21:00)
--- NOTE | 2023-07-11 22:10 | Electrocardiogram Report ---
Test Reason : Blood Pressure : / mmHG Vent. Rate : 070 BPM Atrial Rate : 070 BPM P-R Int : 108 ms QRS Dur : 128 ms QT Int : 426 ms P-R-T Axes : 003 -40 038 degrees QTc Int : 460 ms Sinus rhythm with short CA with Premature atrial complexes Left axis deviation Right bundle branch block Left ventricular hypertrophy ( R in aVL , Ramon product , Romhilt-Haywood ) Nonspecific ST abnormality Abnormal ECG When compared with ECG of 21-FEB-2023 16:14, Premature ventricular complexes are no longer Present Premature atrial complexes are now Present Confirmed by Yousuf Murphy ([id number]) on 07/11/2023 10:10:07 PM Referred By: REFERRED SELF Confirmed By:Yousuf Murphy
[2023-07-11] MEDS: oxyCODONE HCL IR 5 MG TAB (IMMEDIATE RELEASE) PO PRN (23:38)
[2023-07-12] MEDS: PANTOprazole 40 MG TAB PO SCH (05:46)
[2023-07-12] MEDS: LEVOTHYROXINE SODIUM 100 MCG TABLET PO SCH (05:46)
[2023-07-12 07:24] LABS: Hemoglobin 10.1 g/dl (12.0-16.0); Mean Corpuscular Hemoglobin 25.7 pg (25.0-34.0); Mean Corpuscular Hgb Conc 31.6 g/dL (32.0-36.0); Mean Corpuscular Volume 81.4 fL (80.0-100.0); Mean Platelet Volume 10.7 fL (9.4-12.4); Platelet Count 283 K/uL (130-400); RDW Coefficient of Variation 17.9 % (11.5-14.5); RDW Standard Deviation 52.4 fL (36.4-46.3); Red Blood Count 3.93 M/uL (4.20-5.40); White Blood Count 7.72 K/ul (4.8-10.8)
[2023-07-12 07:27] LABS: BUN Creatinine Ratio 26.7 (10-20); Calcium 10.9 mg/dl (8.6-10.3); Est GFR (African American) 53.7 ml/min; Est GFR (Non-African American) 46.3 ml/min; Phosphorus 4.2 mg/dl (2.5-4.9); Potassium 3.2 mmol/L (3.5-5.1)
[2023-07-12] MEDS ORDERED: POTASSIUM CHLORIDE CRTAB 20 MEQ TABCR PO STA (07:51)
--- NOTE | 2023-07-12 08:53 | XRay Report ---
XR chest 1V portable HISTORY: Shortness of breath. f/u pulm vascular congestion/opacities COMPARISON: Chest 07/11/2023. FINDINGS: No pneumothorax. The heart remains mildly enlarged. The pulmonary edema has improved. Trace bilateral pleural effusions persist. Left basilar linear densities favor subsegmental atelectasis ar e scarring. No new focal lung consolidations. IMPRESSION: Interval improvement in the mild interstitial pulmonary edema. Trace bilateral pleural effusions pers ist. ACT 112: Negative or not required by law. Electronically signed by: Maxwell Chester M.D. 07/12/2023 8:52 AM
[2023-07-12] MEDS: CYANOCOBALAMIN (B-12) 500 MCG TABLET PO SCH (08:57)
[2023-07-12] MEDS: FUROSEMIDE 40 MG/4 ML VIAL IV SCH (08:57)
[2023-07-12] MEDS: predniSONE 10 MG TABLET PO SCH (08:57)
[2023-07-12] MEDS: VENLAFAXINE HCL XR 150 MG CAPXR PO SCH (08:57)
[2023-07-12] MEDS: DOCUSATE SODIUM/SENNA 50/8.6MG TAB PO SCH (08:58)
[2023-07-12] MEDS: VIBEGRON 75 MG TAB PO SCH (08:58)
[2023-07-12] MEDS: allopurinoL 100 MG TAB PO SCH (08:58)
[2023-07-12] MEDS: OXYBUTYNIN CHLORIDE XL 5 MG TABCR PO SCH (08:58)
[2023-07-12] MEDS: SERTRALINE HCL 50 MG TABLET PO SCH (08:58)
[2023-07-12] MEDS: LOSARTAN POTASSIUM 50 MG TAB PO SCH (08:58)
[2023-07-12] MEDS: VENLAFAXINE HCL XR 75 MG CAPXR PO SCH (08:58)
[2023-07-12] MEDS: DICLOFENAC SOD 1% GEL 100 GM TUBE EXT SCH ×2 (08:58→13:13)
[2023-07-12] MEDS: INSULIN ASPART PER UNIT CHARGE SC SCH ×2 (09:01→13:14)
[2023-07-12] MEDS: ACETAMINOPHEN 325 MG TAB PO PRN (13:17)
[2023-07-12 15:20] VITALS: BP 150/77; PULSE 67; RESP 19; TEMP 97.9; O2SAT 96
--- NOTE | 2023-07-12 15:20 | Discharge Summary ---
Discharge Summary Date of Service July 12, 2023 Notes For Next Care Provider Medication Changes From Visit Increased lasix to 40mg po daily rather than 20mg prn Added Voltaren gel for hip pain Admission HPI Per Admitting Provider Ketty Hernández is a 72 year old female with known HFpEF who presents to the ER with shortness of breath and weight gain of 17lb over just the last 2 days. She reports having some abnormal kidney test (she is unable to find the result of this but was at her baseline on May 24) and therefore her PCP stopped her metformin and Lasix and told her not to take NSAIDs. She has been off Lasix for the last week. She reports urinating less off the lasix but no dysuria or change in smell. Associated orthopnea and PND. No presyncope or chest pain. Current on prednisone 30mg - mainly due to pain with RA with back and hips rather than lung disease. Increased by PCP as ibuprofen was stopped which was working well for her joints. Principal Dx & Hospital Course #1 = Principal Diagnosis (1) Acute on chronic heart failure with preserved ejection fraction: 72yo female presented with reported 17lb weight gain w/ increased leg swelling/hypoxia on admission requiring supplemental O2 to maintain sats She has also been on high doses of prednisone for the last month for RA and admits to eating a lot of lunch meat on hoagies Reports was seen by pulm in [place] who told her she had asthma and stopped her supplemental oxygen (discharged on 2L at rest/4L with ambulation last hospitalization in FEBRUARY 2023) Diuresed with Lasix 40mg IV BID ECHO to eval EF w/ preserved EF (Prior in December w/ EF 60-65%, mild MR, elevated RVSP 40-50%, grade II diastolic dysfunction) CXR with pulm edema Much improved before time of discharge, requiring 2LNC continuous O2 Continue low sodium diet encouraged (likes to eat lots of hoagies per patient), Fluid restriction 1800ml/day continued, daily standing scale weights CHF clinic consulted Dc to home on lasix 40mg po daily could benefit likely from improved BP control-defer to CHF clinic and PCP (2) Anemia: hgb mildly low at 10.1, MCV 80.4. no bleeding reported. TSH elevation Iron panel checked w/ Iron 22, trans % sat 7, ferritin 34. Received Venofer IV daily x 3 doses B12 LOW normal 181-given 1x IM and continuing 1000mcg daily and would continue at dc Folate 7.8 Fecal occult not collected prior to discharge f/u with PCP on discharge needs EGD/colonoscopy for anemia workup (3) Acute on chronic respiratory failure with hypoxemia: Secondary to (4) Hypercalcemia: Calcium levels here at highest 11.0, ionized calcium high at 1.4 PTH 117.3 previously and now remains high at 94 Vit D 25-OH normal at 37, Vit D 1,25-OH pending Parathyroid related peptide pending Phos normal previous BAUTISTA level normal not on any supplements or HCTZ continue lasix for now, mild and fairly asymptomatic Pt reports she already had a parathyroid scan as an outpatient but has not yet received the results f/u with Endo as outpt-to be arranged f/u with PCP (5) LISBETH (obstructive sleep apnea): Hx LISBETH, no CPAP at home at present but reports recent sleep study--qualifies here for 2LNC continuously f/u with PCP for CPAP order through DME (6) NSIP (nonspecific interstitial pneumonitis): ?due to rheumatoid per last pulm workup inpatient Follows with [facility] pulmonology and reports workup just showed asthma rather than restrictive lung disease therefore unclear if this is a true diagnosis Currently on prednisone 30mg PO daily (mainly for her joint pain with Rheum) awaiting follow up rheumatology appointment CRP/ESR ordered -- elevated 42/15.91 f/u Pulm and Rheum (7) T2DM (type 2 diabetes mellitus): HbA1C 6.0 in December, repeat 6.7. noting on prednisone 30mg daily continue home metformin/Trulicity (8) GERD (gastroesophageal reflux disease): Continue pantoprazole (9) Hypomagnesemia: low 1.3 on admission, repleted and improved could be from PPI use follow as outpt (10) Hip pain: right hip pain, acute/chronic in nature. Hx arthritis, also trochanteric bursitis. Already on prednisone, 30mg at present time. Topical voltaren added f/u with Rheum (11) Hypothyroid: TSH elevation in patient on replacement however elevated and taking w/ her usual AM medications -- education provided on correct way to take and PCP to repeat TFT as outpatient in 4-6 weeks continue usual dose Synthroid for now Plan VTE Proph w/ lovenox SQ daily Dispo-dc to home on 2LNC continuous with close PCP, CHF clinic, and Rheum follow up as well as Endocrine Discharge Exam Constitutional WD/WN, vitals as above Respiratory normal respiratory effort, lungs clear to auscultation Cardiovascular RRR, no murmur, no edema Updated Medication List Medication Instructions Recorded Confirmed Type allopurinol 100 mg tablet 100 mg PO QAM 01/16/23 07/08/23 History dulaglutide 1.5 mg/0.5 mL 1.5 mg subcut WK 01/16/23 07/08/23 History subcutaneous pen injector (Trulicity) fluoride (sodium) 1.1 % dental 1 applic dental QA 01/16/23 07/08/23 History cream (Sodium Fluoride 5000 Plus) hydroxyzine HCl 25 mg tablet 25 mg PO Q8 PRN Anxiety 01/16/23 07/08/23 History latanoprost 0.005 % eye drops 1 drp OPB QPM 01/16/23 07/08/23 History levothyroxine 100 mcg tablet 100 mcg PO DAILYBB 01/16/23 07/08/23 History mirabegron 50 mg tablet,extended 50 mg PO QAM 01/16/23 07/08/23 History release 24 hr (Myrbetriq) pantoprazole 40 mg tablet,delayed 40 mg PO DAILYBB 01/16/23 07/08/23 History release pramipexole 0.25 mg tablet 0.25 mg PO HS 01/16/23 07/08/23 History pravastatin 40 mg tablet 40 mg PO HS 01/16/23 07/08/23 History sertraline 50 mg tablet 50 mg PO QA 01/16/23 07/08/23 History solifenacin 5 mg tablet 5 mg PO QA 01/16/23 07/08/23 History venlafaxine 75 mg capsule,extended 75 mg PO QA 01/16/23 07/08/23 History release 24 hr olmesartan 20 mg tablet 20 mg PO DAILY #30 tabs 01/21/23 07/08/23 Rx venlafaxine 150 mg 150 mg PO QAM 02/21/23 07/08/23 History capsule,extended release 24 hr Oxygen Home #2 L 02/26/23 Rx furosemide 20 mg tablet (Lasix) 20 mg PO DAILY #30 tabs 02/26/23 07/08/23 Rx prednisone 10 mg tablet 10 mg PO DIRECTED #90 tabs 02/26/23 07/08/23 Rx albuterol sulfate 90 mcg/actuation 2 inh inhalation Q6H PRN shortness 07/12/23 Rx aerosol inhaler of breath or wheezing #8.5 grams furosemide 40 mg tablet (Lasix) 40 mg PO DAILY #30 tabs 07/12/23 Rx Hospital Stay Data Consultations 07/08/23 18:41 ED Decision to Admit Stat 07/09/23 15:58 [facility] Referral Routine Procedures Performed Laboratory Results WBC 7.72 K/ul (4.8-10.8) 07/12/23 06:19 RBC 3.93 M/uL (4.20-5.40) L 07/12/23 06:19 Hgb 10.1 g/dl (12.0-16.0) L 07/12/23 06:19 Hct 32.0 % (37.0-47.0) L 07/12/23 06:19 MCV 81.4 fL (80.0-100.0) 07/12/23 06:19 MCH 25.7 pg (25.0-34.0) 07/12/23 06:19 MCHC 31.6 g/dL (32.0-36.0) L 07/12/23 06:19 RDW Std Deviation 52.4 fL (36.4-46.3) H 07/12/23 06:19 RDW Coeff of Jason 17.9 % (11.5-14.5) H 07/12/23 06:19 Plt Count 283 K/uL (130-400) 07/12/23 06:19 MPV 10.7 fL (9.4-12.4) 07/12/23 06:19 Immature Gran % (Auto) 0.6 % 07/11/23 07:00 Neut % (Auto) 66.5 % 07/11/23 07:00 Lymph % (Auto) 19.5 % 07/11/23 07:00 Young % (Auto) 8.7 % 07/11/23 07:00 Eos % (Auto) 4.2 % 07/11/23 07:00 Baso % (Auto) 0.5 % 07/11/23 07:00 Reticulocyte % (Auto) 2.7 % (0.5-2.0) H 07/09/23 06:51 Neut # (Auto) 5.67 K/uL (1.40-6.50) 07/11/23 07:00 Lymph # (Auto) 1.66 K/uL (1.20-3.40) 07/11/23 07:00 Young # (Auto) 0.74 K/uL (0.11-0.59) H 07/11/23 07:00 Eos # (Auto) 0.36 K/uL (0.00-0.50) 07/11/23 07:00 Baso # (Auto) 0.04 K/uL (0.00-0.20) 07/11/23 07:00 Reticulocyte # 0.09 10^6/uL (0.02-0.10) 07/09/23 06:51 Immature Gran # (Auto) 0.05 K/uL (0.01-0.20) 07/11/23 07:00 Ovalocytes 1+ 07/08/23 17:30 ESR 42 mm/hr (0-30) H 07/08/23 17:30 PT 11.0 Seconds (9.0-12.0) 07/08/23 17:30 INR 1.0 (0.9-1.1) 07/08/23 17:30 APTT 25.4 Seconds (21.0-31.0) 07/08/23 17:30 PTT Ratio 0.9 07/08/23 17:30 Sodium 140 mmol/L (136-145) 07/12/23 06:19 Potassium 3.2 mmol/L (3.5-5.1) L 07/12/23 06:19 Chloride 99 mmol/L (98-107) 07/12/23 06:19 Carbon Dioxide 35 mmol/L (21-32) H 07/12/23 06:19 Anion Gap 6 (3-11) 07/12/23 06:19 BUN 31 mg/dl (6-23) H 07/12/23 06:19 Creatinine 1.16 mg/dl (0.6-1.2) 07/12/23 06:19 Est Cr Clr Drug Dosing 43.0 ml/min 07/12/23 06:19 Est GFR ( Amer) 53.7 ml/min 07/12/23 06:19 Est GFR (Non-Af Amer) 46.3 ml/min 07/12/23 06:19 BUN/Creatinine Ratio 26.7 (10-20) H 07/12/23 06:19 Glucose 91 mg/dl (70-99(Fasting)) 07/12/23 06:19 POC Glucose 179 mg/dl (70-99) H 07/12/23 12:27 Estimat Average Glucose 146 mg/dl 07/09/23 06:51 Hemoglobin A1c 6.7 % (4.5-5.6) H 07/09/23 06:51 Calcium 10.9 mg/dl (8.6-10.3) H 07/12/23 06:19 Ionized Calcium 1.42 mmol/L (1.12-1.32) H 07/11/23 09:37 Phosphorus 4.2 mg/dl (2.5-4.9) 07/12/23 06:19 Magnesium 1.7 mg/dl (1.7-2.4) 07/11/23 07:00 Iron 22 mcg/dl (35-150) L 07/09/23 08:28 TIBC 312 mcg/dl (250-450) 07/09/23 08:28 Unsaturated IBC 290 mcg/dl (155-355) 07/09/23 08:28 Transferrin % Sat 7 % (15-50) L 07/09/23 08:28 Ferritin 34.0 ng/ml (8-388) 07/09/23 06:51 Total Bilirubin 0.4 mg/dl (0.2-1.0) 07/10/23 06:23 Direct Bilirubin 0.1 mg/dl (0-0.2) 07/10/23 06:23 AST 18 U/L (13-39) 07/10/23 06:23 ALT 40 U/L (7-52) 07/10/23 06:23 Alkaline Phosphatase 77 U/L (34-104) 07/10/23 06:23 Troponin I High Sens 47.9 pg/ml (0-14) H 07/08/23 20:02 C-Reactive Protein 15.91 mg/dl (0-0.5) H 07/08/23 17:30 B-Natriuretic Peptide 652 pg/ml (0-100) H 07/08/23 17:30 Total Protein 6.8 gm/dl (6.0-8.3) 07/10/23 06:23 Albumin 3.6 gm/dl (3.4-5.0) 07/10/23 06:23 Globulin 3.0 gm/dl (2.5-4.0) 07/08/23 17:30 Albumin/Globulin Ratio 1.2 (0.9-2) 07/08/23 17:30 Vitamin B12 181 pg/ml (180-914) 07/09/23 06:51 25-OH Vitamin D Total 37.7 ng/ml (30-100) 07/09/23 08:24 Folate 7.80 ng/ml (>5.38) 07/09/23 06:51 Procalcitonin 0.06 ng/ml (0-0.5) 07/08/23 17:30 TSH 8.030 uIu/ml (0.300-4.500) H 07/09/23 08:24 Free T4 0.66 ng/dl (0.61-1.60) 07/09/23 08:24 PTH Intact 94.6 pg/ml (12.0-88.0) H 07/11/23 09:37 Urine Color Yellow 07/09/23 Unknown Urine Appearance Clear (Clear) 07/09/23 Unknown Urine pH 6.0 (4.5-7.5) 07/09/23 Unknown Ur Specific [place] 1.021 (1.000-1.030) 07/09/23 Unknown Urine Protein 1+ (Negative) H 07/09/23 Unknown Urine Glucose (UA) Negative (Negative) 07/09/23 Unknown Urine Ketones Negative (Negative) 07/09/23 Unknown Urine Blood Negative (Negative) 07/09/23 Unknown Urine Nitrite Negative (Negative) 07/09/23 Unknown Urine Bilirubin Negative (Negative) 07/09/23 Unknown Urine Urobilinogen Negative (Negative) 07/09/23 Unknown Ur Leukocyte Esterase 2+ (Negative) H 07/09/23 Unknown Urine WBC (Auto) >30 /hpf (0-5) H 07/09/23 Unknown Urine RBC (Auto) 0-4 /hpf (0-4) 07/09/23 Unknown U Hyaline Cast (Auto) 0 /lpf (0-5) 07/09/23 Unknown U Epithel Cells (Auto) >30 /lpf (0-5) H 07/09/23 Unknown Urine Bacteria (Auto) Negative (Negative) 07/09/23 Unknown Ur Random Creatinine 113.7 mg/dl 07/09/23 Unknown U Random Total Protein 48.7 mg/dl (0-11.9) H 07/09/23 Unknown Protein/Creatinin Ratio 0.4 (0-0.2) H 07/09/23 Unknown SARS-CoV-2 (PCR) NEGATIVE (Negative) 07/08/23 17:30 Influenza Type A (PCR) Negative (Neg) 07/08/23 17:30 Influenza Type B (PCR) Negative (Neg) 07/08/23 17:30 RSV (RT-PCR) Negative (Neg) 07/08/23 17:30 Impressions Chest X-Ray 07/12/23 07:00 XR chest 1V portable HISTORY: Shortness of breath. f/u pulm vascular congestion/opacities COMPARISON: Chest 07/11/2023. FINDINGS: No pneumothorax. The heart remains mildly enlarged. The pulmonary edema has improved. Trace bilateral pleural effusions persist. Left basilar li near densities favor subsegmental atelectasis are scarring. No new focal lung consolidations. IMPRESSION: Interval improvement in the mild interstitial pulmonary edema. Trace bilateral pleural effusions persist. ACT 112: Negative or not required by law. Electronically signed by: Maxwell Chester M.D. 07/12/2023 8:52 AM Diagnostic Imagining Performed ECHO Pending Results Patient Have Any Pending Studies at Discharge: Yes (parathyroid-related peptide, 1,25-OH Vitamin D level) Discharge Instructions Given to Patient (Per Discharging Provider) You will need to take the lasix 40mg daily and remain on continuous oxygen at 2L via the nasal cannula for your heart failure. You will need to follow up with the Cardiology PA in the CHF clinic. For your elevated calcium levels, please follow up with your new PCP for further evaluation. Call your Primary Care doctor if any of the following symptoms or problems start or get worse: * Shortness of breath or difficulty breathing * Wake up at night short of breath * Chest pain * Cough * Swelling of your hands, feet, or legs * More fatigued or tired with your normal activity * Palpitations - sudden fast heart beats WEIGHT * Weigh yourself every morning after using the bathroom. * Use the same scale. * Wear the same amount of clothing. * Write your weight down on a chart. * Call your Primary Care doctor if you gain more than 2-3 pounds in 1-2 days. MEDICATIONS * Use this discharge instruction sheet for medication instructions. * Take your medications at the time your doctor ordered. * Do not skip a dose of your medicines. * If you miss a dose of medicine, take it as soon as possible, but DO NOT DOUBLE A DOSE. * Read your medicine information when you get home. * Know all of the side effects of your medicine. If in doubt, ask your pharmacist * Call your Primary Care doctor's office if you have any side effects. * Be sure all of your doctors know what medicine and herbs you take (including cold, flu, and herbal medicine). Take the following with you to your follow-up doctor appointments: * Weight Chart * Medication List * List of questions Do not drink excessive alcohol, beer or wine. Total Time Total Time Spent Total Time Spent (In Minutes): 45 min Coding Level of Care Code 71945 INP/OBS DISCH >30 MIN Diagnoses Acute on chronic heart failure with preserved ejection fraction I50.33 Anemia D64.9 Anemia type: unspecified type Acute on chronic respiratory failure with hypoxemia J96.21 Hypercalcemia E83.52 LISBETH (obstructive sleep apnea) G47.33 NSIP (nonspecific interstitial pneumonitis) J84.89 T2DM (type 2 diabetes mellitus) E11.9 GERD (gastroesophageal reflux disease) K21.9 Hypomagnesemia E83.42 Hip pain M25.559 Hypothyroid E03.9
== END 2023-07-12 17:15 | disposition home or self-care (01) | DRG 291 ==
LOC: ED 16:45 → 2N 18:59 → SUATTDRO 18:59 → 2N 21:52
DX: E83.52 Hypercalcemia; Z88.8 Allergy status to other drugs, medicaments and biological substances; I50.33 Acute on chronic diastolic (congestive) heart failure; Z79.890 Hormone replacement therapy; G47.33 Obstructive sleep apnea (adult) (pediatric); I11.0 Hypertensive heart disease with heart failure; E03.9 Hypothyroidism, unspecified; K21.9 Gastro-esophageal reflux disease without esophagitis; D64.9 Anemia, unspecified; M70.61 Trochanteric bursitis, right hip; E11.9 Type 2 diabetes mellitus without complications; Z91.119 Patient's noncompliance with dietary regimen due to unspecified reason; J84.89 Other specified interstitial pulmonary diseases; J96.21 Acute and chronic respiratory failure with hypoxia; E83.42 Hypomagnesemia